=== PATIENT | female | born 1980 | race Caucasian/White ===

== ENCOUNTER 2022-08-05 06:35 | Emergency (ER) | payer MEDICAID ==
[~2022-08-05] VITALS: Ht 165.1 cm; Wt 93.6 kg
[2022-08-05 07:45] LABS: Basophils # (auto) 0.1 10 ^3/uL (0-0.2); Basophils % (auto) 1.1 % (0.0-2.0); Eosinophils # (auto) 0.2 10 ^3/uL (0-0.8); Eosinophils % (auto) 4.6 % (0.0-7.0); Hematocrit 36.2 % (36.0-46.0); Hemoglobin 12.1 g/dL (12.2-16.2); Lymphocytes # (auto) 1.9 10 ^3/uL (0.4-5.4); Lymphocytes % (auto) 35.9 % (10.0-50.0); Mean Corpuscular Hemoglobin 27.5 pg (28.0-32.0); Mean Corpuscular Hgb Conc. 33.3 g/dL (32.0-36.0); Mean Corpuscular Volume 82.5 fL (80.0-100.0); Monocytes # (auto) 0.3 10 ^3/uL (0-1.3); Monocytes % (auto) 4.8 % (0.0-12.0); Neutrophils # (auto) 2.8 10 ^3/uL (1.6-8.6); Neutrophils % (auto) 53.6 % (37.0-80.0); Nucleated Red Blood Cells % 0.1 %; Red Blood Cells 4.39 10^6/uL (4.0-5.20); Red Cell Distribution Width 12.9 % (11.8-14.3); White Blood Cell 5.3 10^3/uL (4.4-10.8)
[2022-08-05 07:59] LABS: Calcium 8.7 mg/dL (8.5-10.1); Potassium 3.9 mmol/L (3.5-5.1)
[2022-08-05 08:04] LABS: Bilirubin, Total 0.5 mg/dL (0.2-1.0); Total Protein 7.1 g/dL (6.4-8.2)
[2022-08-05] MEDS ORDERED: IOHEXOL 300 MG/ML 100ML BOTTLE IJ ONE (09:42)
[2022-08-05] MEDS ORDERED: SODIUM CHLORIDE 0.9% 1,000 ML IV ONE (09:45)
[2022-08-05] MEDS ORDERED: PROMETHAZINE HCL 25 MG/ML 1ML IV PRN (09:45)
[2022-08-05] MEDS ORDERED: MORPHINE SULFATE 4 MG/ML SYR/VIAL IV ONE (09:45)
[2022-08-05 10:54] LABS: Urine WBC None Seen /hpf (0 - 5)
[2022-08-05 10:55] LABS: INR 1.01 (0.9-1.15); Partial Thromboplastin Time 28.5 sec (24.6-33.4)
[2022-08-05 11:52] LABS: Urine Bacteria NONE SEEN /hpf (None Seen); Urine Blood Negative /uL (Negative); Urine Specific Gravity 1.011 (1.001-1.035)
[2022-08-05 13:25] VITALS: BP 109/67
[2022-08-05] MEDS ORDERED: TRAM50TA2 PO (13:32)
[2022-08-05] MEDS ORDERED: DICL50TA2 PO (13:32)
== END 2022-08-05 13:23 | disposition home or self-care (01) ==
LOC: ER 06:35
DX: N83.201 Unspecified ovarian cyst, right side (principal); I27.20 Pulmonary hypertension, unspecified; J44.9 Chronic obstructive pulmonary disease, unspecified; Z90.710 Acquired absence of both cervix and uterus
CPT/HCPCS: 36415; 74177; 76856; 80053; 81001; 83690; 83735; 85025; 85610; 85730; 93005; 96361; 96374; 96375; 99285; J2270; J2550; J7030; Q9967

== ENCOUNTER 2022-12-18 12:00 | Outpatient (CLI) | payer MEDICAID ==
[~2022-12-18] VITALS: Ht 165.1 cm; Wt 86.2 kg
[~2022-12-18 12:00] MED LIST: DICL50TA2 PO; TRAM50TA2 PO
== END 2022-12-18 12:43 | disposition home or self-care (01) ==
LOC: LAB 12:00 → EDSTATUS 12-22 11:19
PROVIDERS: ATTEND Internal Medicine Cardiovascular Disease
DX: Z20.822 Contact with and (suspected) exposure to COVID-19 (principal)

== ENCOUNTER 2023-02-19 06:44 | Day surgery (SDC) | payer OTHER ==
[~2023-02-19] VITALS: Ht 165.1 cm; Wt 86.2 kg
[2023-02-19] VITALS (7 sets, daily range): BP systolic 91–105; BP diastolic 48–69
[~2023-02-19 06:44] MED LIST changes: +ALBU0.084 NEB; +ALBU108A5 IN; +ARIP15TA6 PO; +ASPI1TAB19 PO; +ATOR10TA PO; +BACL10TA PO; +BUPR200T2 PO; +BUSP30TA PO; +CHOL1CAP58 PO; -DICL50TA2 PO; +FENO5TAB PO; +FERR-20 PO; +FLUO-125 PO; +GABA300C PO; +HYDR-4902 PO; +HYDR50TA69 PO; +MELA1CHW PO; +METO25TA93 PO; +MONT10TA23 PO; +OMEP-263 PO; +PANT40TA2 PO; -TRAM50TA2 PO; +TRAZ300T16 PO
[2023-02-19] MEDS ORDERED: ANGIOMAX 250 MG VIAL IV ONE (08:54)
[2023-02-19] MEDS ORDERED: fentaNYL CITRATE 100 MCG/2 ML VL ONE (08:54)
[2023-02-19] MEDS ORDERED: LIDOCAINE 2%HCL (LOCAL ANESTH.) INJ 20ML MDV ONE (08:54)
[2023-02-19] MEDS ORDERED: HEPARIN SODIUM (PORCINE) 5000 UNITS/ML 1ML VIAL ONE (08:54)
[2023-02-19] MEDS ORDERED: MIDAZOLAM HCL 2MG/2ML 2ml VIAL (1mg/ml) ONE (08:54)
[2023-02-19] MEDS ORDERED: IODIXANOL 320MG/ML 100ML BTL IV ONE (08:55)
[2023-02-19] MEDS ORDERED: SODIUM CHL 0.9% 50 ML ONE (08:55)
[2023-02-19] MEDS ORDERED: VERAPAMIL 2.5MG/ML INJ 2ML VIAL IV ONE (08:58)
[2023-02-19] MEDS ORDERED: HYDROcodone-ACET 5/325MG TAB PO ONE (11:15)
[2023-02-19] MEDS ORDERED: ONDANSETRON HCL 4 MG/2 ML VIAL IV ONE (11:15)
== END 2023-02-19 13:10 | disposition home or self-care (01) ==
LOC: CATH 06:44
PROVIDERS: ATTEND Internal Medicine Cardiovascular Disease
DX: R94.39 Abnormal result of other cardiovascular function study (principal); E11.9 Type 2 diabetes mellitus without complications; E78.5 Hyperlipidemia, unspecified; M19.90 Unspecified osteoarthritis, unspecified site; I10 Essential (primary) hypertension; J44.9 Chronic obstructive pulmonary disease, unspecified; E66.9 Obesity, unspecified; Z68.31 Body mass index [BMI] 31.0-31.9, adult; Z79.82 Long term (current) use of aspirin; Z79.1 Long term (current) use of non-steroidal anti-inflammatories (NSAID); Z88.2 Allergy status to sulfonamides; Z82.49 Family history of ischemic heart disease and other diseases of the circulatory system; Z87.891 Personal history of nicotine dependence; Z79.899 Other long term (current) drug therapy; Z79.891 Long term (current) use of opiate analgesic; Z90.710 Acquired absence of both cervix and uterus; Z20.822 Contact with and (suspected) exposure to COVID-19
CPT/HCPCS: 93458; C1725; C1769; C1894; J1644; J2250; J2405; J3010; Q9967; U0003; 99152; 99153

== ENCOUNTER 2023-09-02 12:05 | Inpatient (IN) | payer MEDICAID, OTHER ==
[~2023-09-02] VITALS: Ht 165.1 cm; Wt 93.9 kg
[~2023-09-02 12:05] MED LIST changes: -FERR-20 PO; +FERR325T24 PO; -OMEP-263 PO; +OMEP-448 PO
[2023-09-02 13:36] LABS: Basophils # (auto) 0.1 10 ^3/uL (0-0.2); Basophils % (auto) 1.1 % (0.0-2.0); Eosinophils # (auto) 0.3 10 ^3/uL (0-0.8); Eosinophils % (auto) 4.4 % (0.0-7.0); Hematocrit 37.4 % (36.0-46.0); Hemoglobin 12.4 g/dL (12.2-16.2); Lymphocytes # (auto) 2.4 10 ^3/uL (0.4-5.4); Lymphocytes % (auto) 36.6 % (10.0-50.0); Mean Corpuscular Hemoglobin 28.1 pg (28.0-32.0); Mean Corpuscular Hgb Conc. 33.1 g/dL (32.0-36.0); Mean Corpuscular Volume 84.7 fL (80.0-100.0); Monocytes # (auto) 0.5 10 ^3/uL (0-1.3); Monocytes % (auto) 6.9 % (0.0-12.0); Neutrophils # (auto) 3.4 10 ^3/uL (1.6-8.6); Nucleated Red Blood Cells % 0.1 %; Red Blood Cells 4.42 10^6/uL (4.0-5.20); Red Cell Distribution Width 14.9 % (11.8-14.3); White Blood Cell 6.7 10^3/uL (4.4-10.8)
[2023-09-02 13:41] LABS: Urine Bacteria FEW /hpf (None Seen); Urine Blood Negative /uL (Negative); Urine Clarity HAZY (Clear); Urine Color Yellow (Yellow); Urine Protein, UAD Negative (Negative); Urine Specific Gravity 1.018 (1.001-1.035); Urine WBC 1 /hpf (0 - 5); Urine pH 5.5 (5.0-8.0)
[2023-09-02 13:45] LABS: Amphetamine Screen, Urine Neg (NEGATIVE); Benzodiazephine Screen, Urine Neg (NEGATIVE)
[2023-09-02 13:46] LABS: Barbiturate Scree,Urine Neg (NEGATIVE); Cocaine Screen, Urine Neg (NEGATIVE); Opiate Scree,Urine Neg (NEGATIVE); Phencyclidine Screen, Urine Neg (NEGATIVE)
[2023-09-02 14:03] LABS: Alanine Aminotransferase 47 U/L (7-40); Albumin 4.6 g/dL (3.2-4.8); Alkaline Phosphatase 51 U/L (46-116); Anion Gap 6 (5-15); Aspartate Aminotransferase 29 U/L (13-40); BUN/Creatinine Ratio 13.2 (10.0-20.0); Bilirubin, Total 0.4 mg/dL (0.2-1.0); Blood Urea Nitrogen 12 mg/dL (9-23); Calcium 9.3 mg/dL (8.5-10.1); Carbon Dioxide 27 mmol/L (20-30); Chloride 105 mmol/L (98-107); Glucose 68 mg/dL (74-106); Potassium 4.1 mmol/L (3.5-5.1); Sodium 138 mmol/L (136-145); Total Protein 6.8 g/dL (5.7-8.2)
[2023-09-02] MEDS ORDERED: DEXTROSE (25%) 10 ML SYRG IV ONE (14:30)
[2023-09-02 14:45] LABS: Cannabinoid Screen, Urine Pos (NEGATIVE)
[2023-09-02] MEDS ORDERED: NITROGLYCERIN 0.4 MG SL TAB SL PRN (15:00)
[2023-09-02] MEDS ORDERED: MORPHINE SULFATE INJ 2 MG/ml SYRG IV PRN (15:00)
[2023-09-02] MEDS ORDERED: ACETAMINOPHEN 325 MG TAB PO PRN (15:00)
[2023-09-02] MEDS: HYDROcodone-ACET 5/325MG TAB PO PRN (15:23)
[2023-09-02] MEDS: ONDANSETRON HCL 4 MG/2 ML VIAL IV PRN (15:23)
[2023-09-02] MEDS: MORPHINE SULFATE INJ 2 MG/ml SYRG IV PRN (19:17)
[2023-09-03] MEDS: ONDANSETRON HCL 4 MG/2 ML VIAL IV PRN (02:24)
[2023-09-03] MEDS: MORPHINE SULFATE INJ 2 MG/ml SYRG IV PRN (02:25)
[2023-09-03 03:29] VITALS: TEMP 97.8; O2SAT 97
[2023-09-03 03:37] VITALS: BP 108/59; PULSE 71; RESP 16
[2023-09-03] MEDS: HYDROcodone-ACET 5/325MG TAB PO PRN (03:44)
[2023-09-03] MEDS ORDERED: ENOXAPARIN SOD 40 MG/0.4 ML SYRINGE SC SCH (10:00)
== END 2023-09-03 07:11 | disposition left against medical advice (07) | DRG 204 ==
LOC: ER 12:05 → TELE 15:00
PROVIDERS: ADMIT Internal Medicine; ATTEND Internal Medicine
DX: R55 Syncope and collapse (principal); I27.20 Pulmonary hypertension, unspecified; J96.11 Chronic respiratory failure with hypoxia; F41.9 Anxiety disorder, unspecified; G89.29 Other chronic pain; F31.9 Bipolar disorder, unspecified; I10 Essential (primary) hypertension; E11.9 Type 2 diabetes mellitus without complications; M54.50 Low back pain, unspecified; J44.9 Chronic obstructive pulmonary disease, unspecified; E78.5 Hyperlipidemia, unspecified; Z53.21 Procedure and treatment not carried out due to patient leaving prior to being seen by health care provider; S09.90XA Unspecified injury of head, initial encounter; X58.XXXA Exposure to other specified factors, initial encounter; E66.9 Obesity, unspecified; Z68.34 Body mass index [BMI] 34.0-34.9, adult; Z79.899 Other long term (current) drug therapy; Z88.3 Allergy status to other anti-infective agents; Z90.710 Acquired absence of both cervix and uterus; Z98.84 Bariatric surgery status; Z99.81 Dependence on supplemental oxygen; Z90.49 Acquired absence of other specified parts of digestive tract; Y93.89 Activity, other specified; Y92.89 Other specified places as the place of occurrence of the external cause; Y99.8 Other external cause status
CPT/HCPCS: 36415; 70450; 71045; 72100; 80053; 80307; 81001; 81025; 82962; 83605; 83735; 83880; 84484; 85025; 96374; G0378; J2405

== ENCOUNTER 2024-06-16 09:03 | Inpatient (IN) | payer MEDICAID ==
[~2024-06-16] VITALS: Ht 165.1 cm; Wt 94.0 kg
[2024-06-16 09:39] VITALS: PULSE 73; RESP 20; O2SAT 99
[2024-06-16 09:44] LABS: Basophils # (auto) 0.1 10 ^3/uL (0-0.2); Basophils % (auto) 1.1 % (0.0-2.0); Eosinophils # (auto) 0.2 10 ^3/uL (0-0.8); Eosinophils % (auto) 3.3 % (0.0-7.0); Hematocrit 38.2 % (36.0-46.0); Hemoglobin 12.9 g/dL (12.2-16.2); Lymphocytes # (auto) 2.1 10 ^3/uL (0.4-5.4); Mean Corpuscular Hemoglobin 28.9 pg (28.0-32.0); Mean Corpuscular Hgb Conc. 33.8 g/dL (32.0-36.0); Mean Corpuscular Volume 85.6 fL (80.0-100.0); Monocytes # (auto) 0.4 10 ^3/uL (0-1.3); Monocytes % (auto) 6.1 % (0.0-12.0); Neutrophils # (auto) 3.3 10 ^3/uL (1.6-8.6); Neutrophils % (auto) 54.5 % (37.0-80.0); Nucleated Red Blood Cells % 0.1 %; Red Blood Cells 4.46 10^6/uL (4.0-5.20); Red Cell Distribution Width 14.4 % (11.8-14.3); White Blood Cell 6.1 10^3/uL (4.4-10.8)
[2024-06-16 10:02] LABS: Urine Bacteria None Seen /hpf (None Seen)
[2024-06-16 10:06] LABS: Alanine Aminotransferase 37 U/L (7-40); Albumin 4.5 g/dL (3.2-4.8); Alkaline Phosphatase 75 U/L (46-116); Anion Gap 8 (5-15); Aspartate Aminotransferase 32 U/L (13-40); Calcium 9.5 mg/dL (8.7-10.4); Carbon Dioxide 23 mmol/L (20-30); Chloride 107 mmol/L (98-107); Glucose 92 mg/dL (74-106); Potassium 4.1 mmol/L (3.5-5.1); Sodium 138 mmol/L (136-145)
[2024-06-16 10:07] LABS: Bilirubin, Total 0.3 mg/dL (0.2-1.0); Total Protein 6.8 g/dL (5.7-8.2)
[2024-06-16 10:12] LABS: BUN/Creatinine Ratio 6.3 (10.0-20.0); Blood Urea Nitrogen < 5 mg/dL (9-23)
[2024-06-16 10:17] LABS: Urine Blood Negative /uL (Negative); Urine Clarity Clear (Clear); Urine Color Light-Yellow (Yellow); Urine Protein, UAD Negative (Negative); Urine Specific Gravity 1.023 (1.001-1.035); Urine Urobilinogen Normal (Negative); Urine WBC <1 /hpf (0 - 5)
[2024-06-16] MEDS: SODIUM CHLORIDE 0.9% 1,000 ML IV ONE (11:01)
[2024-06-16] MEDS: ONDANSETRON HCL 4 MG/2 ML VIAL IV ONE ×2 (11:01→12:03)
[2024-06-16] MEDS: ASPirin 81 mg TAB PO ONE (11:01)
[2024-06-16] MEDS: MORPHINE SULFATE 4 MG/ML SYR/VIAL IV ONE ×2 (11:01→12:04)
[2024-06-16 11:10] LABS: INR 0.96 (0.9-1.15); Partial Thromboplastin Time 27.2 SEC (24.5-34.5); Prothrombin Time 10.2 sec (9.3-11.8)
[2024-06-16] MEDS ORDERED: MORPHINE SULFATE INJ 2 MG/ml SYRG IV PRN (12:45)
[2024-06-16] MEDS: SOD CHL 0.45% 1,000 ML IV ONE (14:14)
[2024-06-16] MEDS: GABAPENTIN 100 MG CAP PO SCH (14:21)
[2024-06-16] MEDS: HYDROcodone-ACET 5/325MG TAB PO PRN (14:56)
[2024-06-16] MEDS: NITROGLYCERIN 0.4 MG SL TAB SL PRN (14:56)
[2024-06-16 16:30] VITALS: BP 101/64; TEMP 98.1; O2SAT 95
[2024-06-16] MEDS: ALBUTEROL SULF 2.5 MG/0.5ML(0.5%) NEB SOLN NEB PRN (16:50)
[2024-06-16 17:13] VITALS: BP_SYST 106; BP_SYST 108; BP_SYST 112; BP_DIAS 65; BP_DIAS 68; PULSE 110; RESP 16; TEMP 97.8; O2SAT 98
[2024-06-16 20:00] VITALS: PULSE 88
[2024-06-16] MEDS: ONDANSETRON HCL 4 MG/2 ML VIAL IV PRN (20:23)
[2024-06-16] MEDS: ALPRAZolam 0.25 MG TAB PO PRN (20:41)
[2024-06-16 21:00] VITALS: BP_SYST 93; BP_SYST 97; BP_DIAS 56; BP_DIAS 58; PULSE 79; RESP 18; TEMP 98.3; O2SAT 95
[2024-06-16 22:00] LABS: Amphetamine Screen, Urine Neg (NEGATIVE); Barbiturate Scree,Urine Neg (NEGATIVE); Benzodiazephine Screen, Urine Neg (NEGATIVE); Cannabinoid Screen, Urine Pos (NEGATIVE); Cocaine Screen, Urine Neg (NEGATIVE); Opiate Scree,Urine Pos (NEGATIVE); Phencyclidine Screen, Urine Neg (NEGATIVE)
[2024-06-16] MEDS: SUCRALFATE 1 GM/10 ML ORAL SUSP PO SCH (22:00)
[2024-06-16] MEDS: BUPROPION HCL 200 MG PO SCH (22:00)
[2024-06-16] MEDS: PANTOPRAZOLE 40 MG/10 ML VIAL INJ IV SCH (22:13)
[2024-06-16] MEDS: ATORVASTATIN 20 MG TAB PO SCH (22:13)
[2024-06-16] MEDS: MORPHINE SULFATE INJ 2 MG/ml SYRG IV PRN (22:22)
[2024-06-16] MEDS: traZODone HCL 50 MG TAB PO SCH (23:21)
[2024-06-17] VITALS (11 sets, daily range): BP systolic 93–111; BP diastolic 45–66; PULSE 70–88; RESP 16–77; TEMP 36.8; O2SAT 93–98
[2024-06-17 05:58] LABS: Basophils # (auto) 0.1 10 ^3/uL (0-0.2); Basophils % (auto) 1.1 % (0.0-2.0); Eosinophils # (auto) 0.2 10 ^3/uL (0-0.8); Eosinophils % (auto) 4.9 % (0.0-7.0); Hematocrit 35.5 % (36.0-46.0); Hemoglobin 12.1 g/dL (12.2-16.2); Lymphocytes # (auto) 1.3 10 ^3/uL (0.4-5.4); Lymphocytes % (auto) 29.2 % (10.0-50.0); Mean Corpuscular Hemoglobin 29.4 pg (28.0-32.0); Mean Corpuscular Hgb Conc. 34.1 g/dL (32.0-36.0); Mean Corpuscular Volume 86.2 fL (80.0-100.0); Monocytes # (auto) 0.3 10 ^3/uL (0-1.3); Monocytes % (auto) 6.2 % (0.0-12.0); Neutrophils # (auto) 2.6 10 ^3/uL (1.6-8.6); Neutrophils % (auto) 58.6 % (37.0-80.0); Nucleated Red Blood Cells % 0.5 %; Red Blood Cells 4.12 10^6/uL (4.0-5.20); Red Cell Distribution Width 14.7 % (11.8-14.3); White Blood Cell 4.4 10^3/uL (4.4-10.8)
[2024-06-17 06:20] LABS: Alanine Aminotransferase 205 U/L (7-40); Albumin 4.2 g/dL (3.2-4.8); Alkaline Phosphatase 104 U/L (46-116); Aspartate Aminotransferase 219 U/L (13-40); BUN/Creatinine Ratio 9.5 (10.0-20.0); Bilirubin, Total 0.4 mg/dL (0.2-1.0); Blood Urea Nitrogen 7 mg/dL (9-23); Calcium 9.1 mg/dL (8.7-10.4); Chloride 111 mmol/L (98-107); Cholesterol 139 mg/dL (< 200); Glucose 87 mg/dL (74-106); HDL Cholesterol 51 mg/dL (40-59); LDL Cholesterol 68 mg/dL (< 100); Potassium 4.5 mmol/L (3.5-5.1); Sodium 141 mmol/L (136-145); Total Protein 5.9 g/dL (5.7-8.2); Triglycerides 186 mg/dL (< 150)
[2024-06-17 06:48] LABS: Lipase 34 U/L (12-53)
[2024-06-17 06:49] LABS: Anion Gap 8 (5-15); Carbon Dioxide 22 mmol/L (20-30)
[2024-06-17] MEDS: FLUoxetine HCL 20 MG CAP PO SCH (06:50)
[2024-06-17] MEDS: MONTELUKAST SODIUM 10 MG TAB PO SCH (09:27)
[2024-06-17] MEDS: ASPirin-EC 81 mg tab PO SCH (09:27)
[2024-06-17] MEDS: ARIPIPRAZOLE 15 MG PO SCH (10:00)
[2024-06-17] MEDS ORDERED: METOPROLOL SUCCINATE XL 50 MG TAB PO SCH (14:20)
[2024-06-17] MEDS ORDERED: MUPI2OIN2 (16:26)
== END 2024-06-17 17:55 | disposition home or self-care (01) | DRG 203 ==
LOC: ER 09:06 → TELE 12:45 → TELE-WESTW 17:09
PROVIDERS: ADMIT Hospitalist; ATTEND Hospitalist
DX: M94.0 Chondrocostal junction syndrome [Tietze] (principal); I27.20 Pulmonary hypertension, unspecified; E66.9 Obesity, unspecified; I10 Essential (primary) hypertension; J44.89 Other specified chronic obstructive pulmonary disease; F32.A Depression, unspecified; F41.9 Anxiety disorder, unspecified; M79.7 Fibromyalgia; E78.5 Hyperlipidemia, unspecified; K21.9 Gastro-esophageal reflux disease without esophagitis; K29.70 Gastritis, unspecified, without bleeding; Z88.3 Allergy status to other anti-infective agents; Z82.49 Family history of ischemic heart disease and other diseases of the circulatory system; Z90.49 Acquired absence of other specified parts of digestive tract; Z98.84 Bariatric surgery status; Z90.711 Acquired absence of uterus with remaining cervical stump; Z68.34 Body mass index [BMI] 34.0-34.9, adult; R55 Syncope and collapse
CPT/HCPCS: 36415; 70450; 71045; 80053; 80061; 80307; 81001; 83036; 83690; 83735; 84443; 84484; 85025; 85379; 85610; 85730; 87081; 93005; 93306; 93886; 94640; 96361; 96374; 96375; 96376; G0378; J2405; J2470

== ENCOUNTER 2024-08-23 09:11 | Day surgery (SDC) | payer MEDICAID ==
[2024-08-23] VITALS (8 sets, daily range): BP systolic 87–110; BP diastolic 45–66; PULSE 74–94; RESP 11–17; O2SAT 91–95
[~2024-08-23] VITALS: Ht 157.5 cm; Wt 94.8 kg
[~2024-08-23 09:11] MED LIST changes: +ASCO500T11 PO; +ATOG60TA PO; +CYAN1TAB11 PO; +FURO1TAB33 PO; +IPRIH INH; +MAGN400T40 PO; +MECL-90 PO; -MELA1CHW PO; +MULT-1018 PO; +MULT1CAP25 PO; +ORLI120C21 PO; +POM; +RIME75TA PO; +SUCR1TAB31 PO; +VITA100T3 PO; +ZOFR4T PO
[2024-08-23] MEDS ORDERED: HEPARIN IN NS 1000Units/500mL 1,500 ML ONE (10:27)
[2024-08-23] MEDS ORDERED: IODIXANOL 320MG/ML 100ML BTL IV ONE (10:27)
[2024-08-23] MEDS ORDERED: VERAPAMIL 2.5MG/ML INJ 2ML VIAL IV ONE (11:06)
[2024-08-23] MEDS ORDERED: ANGIOMAX 250 MG VIAL IV ONE (11:06)
[2024-08-23] MEDS ORDERED: HEPARIN SODIUM (PORCINE) 5000 UNITS/ML 1ML VIAL ONE (11:06)
[2024-08-23] MEDS ORDERED: MIDAZOLAM HCL 2MG/2ML 2ml VIAL (1mg/ml) ONE (11:07)
[2024-08-23] MEDS ORDERED: fentaNYL CITRATE 100 MCG/2 ML VL ONE (11:07)
[2024-08-23] MEDS ORDERED: LIDOCAINE 2%HCL (LOCAL ANESTH.) INJ 20ML MDV ONE (11:07)
[2024-08-23] MEDS ORDERED: SODIUM CHL 0.9% 0 ML ONE (11:07)
[2024-08-23] MEDS: HYDROcodone-ACET 5/325MG TAB PO ONE (12:28)
== END 2024-08-23 14:29 | disposition home or self-care (01) ==
LOC: CATH 09:11
PROVIDERS: ATTEND Internal Medicine
DX: I25.10 Atherosclerotic heart disease of native coronary artery without angina pectoris (principal); K21.9 Gastro-esophageal reflux disease without esophagitis; I11.0 Hypertensive heart disease with heart failure; I50.814 Right heart failure due to left heart failure; G89.4 Chronic pain syndrome; J45.909 Unspecified asthma, uncomplicated; Z79.899 Other long term (current) drug therapy; Z90.710 Acquired absence of both cervix and uterus; Z98.890 Other specified postprocedural states; Z88.1 Allergy status to other antibiotic agents; Z88.2 Allergy status to sulfonamides
CPT/HCPCS: 93458; C1769; C1887; C1894; J1644; J2250; J3010; Q9967; 93460; 99152

== ENCOUNTER 2024-10-06 07:53 | Emergency (ER) | payer MEDICAID ==
[~2024-10-06] VITALS: Ht 165.1 cm; Wt 91.0 kg
[2024-10-06 07:54] VITALS: BP 112/76; RESP 20; TEMP 97.7; O2SAT 98
--- NOTE | 2024-10-06 08:01 | ECG ---
[facility] Test Date: 2024-10-06 Test Time: 08:00:54 Pat Name: YEIMY ANAYA Department: ER Room: Gender: F Sort Manager: ANAMARIA : 1980 Requested By: KITTY MOSER Order Number: [id number] Reading MD: Fidencio Anne Measurements Intervals [place] Rate: 90 P: 61 MT: 138 QRS: 43 QRSD: 88 T: 6 QT: 364 QTc: 446 Interpretive Statements Sinus rhythm Low voltage, precordial leads Borderline T abnormalities, anterior leads Electronically Signed On 10-12-2024 13:21:38 PST by Fidencio Anne Please click the below link to view image of tracing.
--- NOTE | 2024-10-06 08:25 | ED.PDOC ---
HPI Comments 43 year old female presents to the ED with chief complaint of chest pain. Patient reports that she has been experiencing right sided chest pain that radiates down her right arm for the past 3 hours with associated headache for the past 9 days. Patient states that she is on O2 at home due to COPD. Patient relays that she had taken Nitroglycerin at 4am and 6am with no relief. Patient denies any N/V, SOB, dizziness, fever, or chills. Chief Complaint: Chest Pain Time Seen by MD: 08:17 Primary Care Provider: MAURO Reviewed Notes: Nurses Notes, Medications, Allergies Allergies: Coded Allergies: Sulfamethoxazole w/Trimethoprim (Verified Allergy, Intermediate, N/V, ITCHING, FEEL HOT, 02/16/23) Sulfa Antibiotics (Verified Allergy, Unknown, HIVES, 08/18/24) Home Meds Reported Medications Atorvastatin Calcium (Lipitor) 10 Mg Tab, 1 TAB PO QAM, #90 TAB 1 Refill 08/18/24 Ipratropium [place] Hfa (Atrovent Hfa) 17 Mcg Aer, 1 PUFF INH QID for COPD, #1 2.9 GRAMS 5 Refills 08/18/24 Baclofen (Baclofen) 10 Mg Tab, 20 MG PO BID PRN for FOR MUSCLE SPASM, MG 08/18/24 Patients Own Medication (PATIENTS OWN MEDICATION) ., 1 QID for IPTROPIUM SOLUTION PTS OWN MED-OBTAIN FROM PT AND SEND TO RX DRUG: FREQ: RX# EXP: DATE DISP: TECH: RP: 08/18/24 Patients Own Medication (PATIENTS OWN MEDICATION) ., 1 PUFF QAM for BRIO INHALER PTS OWN MED-OBTAIN FROM PT AND SEND TO RX DRUG: FREQ: RX# EXP: DATE DISP: TECH: RP: 08/18/24 Cyanocobalamin (Vitamin B12) 1,000 Mcg Tab, 5000 MCG PO DAILY, TAB 08/18/24 Alpha Tocopheryl Acid Succinat (VITAMIN E) 100 Unit Tab, 100 UNIT PO DAILY, TAB 08/18/24 Ascorbic Acid (VITAMIN C TABLET) 500 Mg Tb, 1 TAB PO DAILY, #30 TAB 3 Refills 08/18/24 Magnesium Oxide (MAGNESIUM OXIDE) 400 Mg Tab, 1 TAB PO DAILY, #30 TAB 5 Refills 08/18/24 Atogepant (Qulipta) 60 Mg Tab, 60 MG PO DAILY for MIGRAINE HEADACHES, TAB 08/18/24 Meclizine Hcl (Meclizine Hcl) 25 Mg Tab, 25 MG PO TIDP PRN for DIZZINESS for 30 Days, MG 08/18/24 Furosemide (Lasix) 20 Mg Tb, 1 TAB PO QAM for EDEMA, #90 TAB 1 Refill 08/18/24 Ondansetron Odt 4MG Tab (ZOFRAN PO) 4 Mg Tb, 8 MG PO QIDP for NAUSEA/VOMITING, TAB ODT TAB-DISSOLVE IN MOUTH, THEN SWALLOW 08/18/24 Multiple Vitamin (Multivitamins) Tab, 1 TAB PO DAILY, #90 TAB 3 Refills 08/18/24 Multiple Vitamins W/ Minerals (Hair/Skin/Nails) 1 Cap Cap, 2 GUM PO QAM for SUPPLEMENT, CAP 08/18/24 Sucralfate (CARAFATE) 1 Gm Tab, 1 GM PO QID for GERD, TAB 08/18/24 Orlistat (Xenical) 120 Mg Cap, 120 MG PO TID for WEIGHT LOSS, CAP 08/18/24 Rimegepant Sulfate (Nurtec) 75 Mg Tab, 75 MG PO DAILY for HEADACHE, TAB 08/18/24 Albuterol Sulfate (Albuterol Sulfate) 0.083 % Neb, 1 VIAL NEB QID PRN for SOB or WHEEZING 02/16/23 Albuterol Sulfate (Albuterol Sulfate Hfa) 108 Mcg/Act Aer, 1 PUFF IN QID PRN for SHORTNESS OF BREATH 02/16/23 Gabapentin (Neurontin) 300 Mg Cap, 2 CAP PO TID for FIBROMYALGIA 02/16/23 Aspirin (Aspirin) 81 Mg Tab, 1 TAB PO DAILY for HEART ATTACK PREVENTION 02/16/23 Ferrous Sulfate (Ferrous Sulfate) 325 Mg Tab, 1 TAB PO DAILY for ANEMIA 02/16/23 Omeprazole (Omeprazole Dr) 40 Mg Cap, 1 CAP PO QAM for GERD 02/16/23 Atorvastatin Calcium (Lipitor) 10 Mg Tab, 1 TAB PO QPM for HIGH CHOLESTEROL 02/16/23 Montelukast Sodium (Singulair) 10 Mg Tab, 1 TAB PO DAILY for ASTHMA 02/16/23 Buspirone Hcl (Buspirone Hcl) 30 Mg Tab, 1 TAB PO BID for DEPRESSION 02/16/23 Hydroxyzine Hcl (Hydroxyzine Hcl) 50 Mg Tab, 4 TAB PO BID for ANXIETY 02/16/23 Pantoprazole Sodium Sesquihydr (Protonix) 40 Mg Tab, 1 TAB PO QPM for GERD 02/16/23 Aripiprazole (Abilify) 15 Mg Tab, 1 TAB PO DAILY for OCD 02/16/23 Bupropion Hcl (Wellbutrin Sr) 200 Mg Tab, 1 TAB PO BID for BIPOLAR DISORDER 02/16/23 Trazodone HCl (Trazodone Hydrochloride) 300 Mg Tab, 1 TAB PO HS for INSOMNIA 02/16/23 Fenofibrate (Tricor) 145 Mg Tab, 1 TAB PO QAM for HYPERLIPIDEMIA 02/16/23 Hydrocodone-Acetaminophen (Hydrocodone Bitartrate/AC 5-325 mg) 1 Tab Tab, 1 TAB PO TID PRN for MODERATE PAIN (4-6 PAIN SCALE) 02/16/23 Fluoxetine Hcl (Fluoxetine Hcl) 20 Mg Cap, 4 CAP PO QAM for BPD 02/16/23 Cholecalciferol (Vitamin D3 1.25 mg (81268 Ut)) 1 Cap Cap, 1 CAP PO QAM for VIT D DEFICIENCY 02/16/23 Metoprolol Succinate (Metoprolol Succinate Er) 25 Mg Tab, 2 TAB PO QAM for HYPERTENSION 02/16/23 Information Source: Patient Mode of Arrival: Wheelchair Severity: Moderate Timing: Hours Duration: Since onset Prehospital treatment: NTG Location: Chest (R) Radiation: Arm (R) Quality: Sharp Onset: At Rest Cardiac Risk Factors: Hyperlipidemia, HTN, Diabetes PE Risk Factors: None History of: None Past Medical History PAST MEDICAL HISTORY: Anxiety, Asthma, COPD, DM, High Lipids, HTN Surgical History: Cholecystectomy, Hysterectomy SOCIETY REPORTER History: No Pertinent SOCIETY REPORTER History Family History Family History: Reviewed,noncontributory to illness, Unknown Social History Smoker: Non-Smoker Alcohol: Denies ETOH Use Drugs: Denies Drug Use Lives In: Home Constitutional: denies: chills, diaphoresis, fatigue, fever, malaise, sweats, weakness, others EENTM: denies: blurred vision, double vision, ear bleeding, ear discharge, ear drainage, ear pain, ear ringing, eye pain, eye redness, hearing loss, mouth pain, mouth swelling, nasal discharge, nose bleeding, nose congestion, nose pain, photophobia, tearing, throat pain, throat swelling, voice changes, others Respiratory: denies: cough, hemoptysis, orthopnea, SOB at rest, shortness of breath, SOB with excertion, stridor, wheezing, others Cardiovascular: reports: chest pain; denies: dizzy spells, diaphoresis, Dyspnea on exertion, edema, irregular heart beat, left arm pain, lightheadedness, palpitations, PND, syncope, others Gastrointestinal: denies: abdomen distended, abdominal pain, blood streaked bowels, constipated, diarrhea, dysphagia, difficulty swallowing, hematemesis, melena, nausea, poor appetite, poor fluid intake, rectal bleeding, rectal pain, vomiting, others Genitourinary: denies: abnormal vagina bleeding, burning, dyspareunia, dysuria, flank pain, frequency, hematuria, incontinence, pain, , vagina discharge, urgency, others Neurological: reports: headache; denies: dizziness, fainting, left sided numbness, left sided weakness, numbness, paresthesia, pre-existing deficit, right sided numbness, right sided weakness, seizure, speech problems, tingling, tremors, weakness, others Musculoskeletal: denies: back pain, gout, joint pain, joint swelling, muscle pain, muscle stiffness, neck pain, others Integumetry: denies: bruises, change in color, change in hair/nails, dryness, laceration, lesions, lumps, rash, wounds, others Allergic/Immunocompromised: denies: Difficulty Healing, Frequent Infections, Hives, Itching, others Hematologic/Lymphatic: denies: anemia, blood clots, easy bleeding, easy bruising, swollen glands, others Endocrine: denies: excessive hunger, excessive sweating, excessive thirst, excessive urination, flushing, intolerance to cold, intolerance to heat, unexplained weight gain, unexplained weight loss, others Psychiatric: denies: anxiety, bipolar disorder, depression, hopeless, panic disorder, schizophrenia, sleepless, suicidal, others All Other Systems: Reviewed and Negative Physical Exam General Appearance: Moderate Distress, Normal HEENT: Normal ENT Inspection, PERRL/EOMI Neck: Full Range of Motion, Non-Tender, Normal, Normal Inspection Respiratory: Chest Non-Tender, Lungs Clear, No Accessory Muscle Use, No Respi ratory Distress, Normal Breath Sounds Cardiovascular: No Edema, No JVD, No Murmur, No Gallop, Normal Peripheral Pulses, Regular Rate/Rhythm Breast Exam: Deferred Gastrointestinal: No Organomegaly, Non Tender, No Pulsatile Mass, Normal Bowel Sounds, Soft Genitalia: Deferred Pelvic: Deferred Rectal: Deferred Extremities: No calf tenderness, Normal capillary refill, Normal inspection, Normal range of motion, Non-tender, No pedal edema Musculoskeletal : Apperance: Normal Neurologic: Alert, marking room supervisor II-XII nml as Tested, No Motor Deficits, Normal Affect, Normal Mood, No Sensory Deficits Cerebellar Function: Normal Reflexes: Normal Skin: Dry, Normal Color, Warm Peripheral Pulses: 3+ Radial (R), 3+ Radial (L) Lymphatic: No Adenopathy Was a procedure done? Was a procedure done?: No CP Differential Dx Differential Diagnosis: A-fib, A-Flutter, Angina, Anxiety / Panic Attack, Atrial Dysrhythmia, Electrolyte Disorder X-Ray, Labs, Meds, VS Vital Signs Date Time Temp Pulse Resp B/P (MAP) Pulse Ox O2 Delivery O2 Flow Rate FiO2 10/06/24 08:53 75 10/06/24 07:54 97.7 84 20 112/76 (88) 98 97.7 10/06/24 07:54 97.7 84 20 112/76 (88) 98 Lab Test 10/06/24 09:05 10/06/24 08:08 Range/Units Troponin I High Sensitivity < 3 L < 3 L </=34 ng/L White Blood Count 5.7 4.4-10.8 10^3/uL Red Blood Count 4.38 4.0-5.20 10^6/uL Hemoglobin 13.0 12.2-16.2 g/dL Hematocrit 38.8 36.0-46.0 % Mean Corpuscular Volume 88.5 80.0-100.0 fL Mean Corpuscular Hemoglobin 29.7 28.0-32.0 pg Mean Corpuscular Hemoglobin Concent 33.5 32.0-36.0 g/dL Red Cell Distribution Width 14.2 11.8-14.3 % Platelet Count 188 140-450 10^3/uL Mean Platelet Volume 8.4 6.9-10.8 fL Neutrophils (%) (Auto) 59.6 37.0-80.0 % Lymphocytes (%) (Auto) 29.9 10.0-50.0 % Monocytes (%) (Auto) 6.6 0.0-12.0 % Eosinophils (%) (Auto) 2.5 0.0-7.0 % Basophils (%) (Auto) 1.4 0.0-2.0 % Neutrophils # (Auto) 3.4 1.6-8.6 10 ^3/uL Lymphocytes # (Auto) 1.7 0.4-5.4 10 ^3/uL Monocytes # (Auto) 0.4 0-1.3 10 ^3/uL Eosinophils # (Auto) 0.1 0-0.8 10 ^3/uL Basophils # (Auto) 0.1 0-0.2 10 ^3/uL Nucleated Red Blood Cells 0.2 % Sodium Level 140 136-145 mmol/L Potassium Level 4.2 3.5-5.1 mmol/L Chloride Level 107 98-107 mmol/L Carbon Dioxide Level 24 20-31 mmol/L Anion Gap 9 5-15 Blood Urea Nitrogen 9 9-23 mg/dL Creatinine 0.76 0.550-1.02 mg/dL Glomerular Filtration Rate Calc 99 >90 mL/min BUN/Creatinine Ratio 11.8 10.0-20.0 Serum Glucose 79 74-106 mg/dL Calcium Level 9.7 8.7-10.4 mg/dL Total Bilirubin 0.4 0.2-1.0 mg/dL Aspartate Amino Transferase (AST) 25 13-40 U/L Alanine Aminotransferase (ALT) 34 7-40 U/L Alkaline Phosphatase 69 46-116 U/L Total Protein 7.1 5.7-8.2 g/dL Albumin 4.6 3.2-4.8 g/dL Patient alert oriented. Complaining of chest pain. Vitals stable. Answering questions. Heart rate within normal limits. Saturation pristine on room air. WBC within normal limits. Hemoglobin within normal limits. She is pain-free. Was given aspirin. She states that she is feeling much better. Explained to the patient. She will need outpatient workup. No leg swelling. Denies shortness a breath. Was told to follow up with her primary care physician. Was told to come back if there is any problem. Time of 1ST Reevaluation: 09:17 Reevaluation 1ST: Improved Time of 2ND Reevaluation: 12:53 Reevaluation 2ND: Improved Patient Education/Counseling: Diagnosis, Treatment Family Education/Counseling: No Family Present Departure 1 Departure Time of Disposition: 12:57 Impression: Primary Impression: Musculoskeletal chest pain Disposition: 01 HOME / SELF CARE / HOMELESS Condition: Good Discharged With: Self Critical Care Note Critical Care Time?: No Stability Stability form required: No Heart Score Heart Score: Heart Score Response (Comments) Value History Moderate Suspicious 1 EKG Normal 0 Age <45 0 Risk Factors >3 or Hx ASHD 2 Troponin Normal limit 0 Total 3 I personally scribed for KITTY MOSER MD ([email or web address]) on 10/06/24 at 08:25. Electronically submitted by Teja Cintron ([email or web address]). KITTY MOSER MD Oct 06, 2024 08:25
[2024-10-06 08:43] LABS: Basophils # (auto) 0.1 10 ^3/uL (0-0.2); Basophils % (auto) 1.4 % (0.0-2.0); Eosinophils # (auto) 0.1 10 ^3/uL (0-0.8); Eosinophils % (auto) 2.5 % (0.0-7.0); Hematocrit 38.8 % (36.0-46.0); Lymphocytes # (auto) 1.7 10 ^3/uL (0.4-5.4); Lymphocytes % (auto) 29.9 % (10.0-50.0); Mean Corpuscular Hemoglobin 29.7 pg (28.0-32.0); Mean Corpuscular Hgb Conc. 33.5 g/dL (32.0-36.0); Mean Corpuscular Volume 88.5 fL (80.0-100.0); Monocytes # (auto) 0.4 10 ^3/uL (0-1.3); Monocytes % (auto) 6.6 % (0.0-12.0); Neutrophils # (auto) 3.4 10 ^3/uL (1.6-8.6); Neutrophils % (auto) 59.6 % (37.0-80.0); Nucleated Red Blood Cells % 0.2 %; Platelet Count (auto) 188 10^3/uL (140-450); Red Blood Cells 4.38 10^6/uL (4.0-5.20); Red Cell Distribution Width 14.2 % (11.8-14.3); White Blood Cell 5.7 10^3/uL (4.4-10.8)
[2024-10-06 08:53] VITALS: PULSE 75
[2024-10-06 09:00] LABS: Alanine Aminotransferase 34 U/L (7-40); Albumin 4.6 g/dL (3.2-4.8); Alkaline Phosphatase 69 U/L (46-116); Anion Gap 9 (5-15); Aspartate Aminotransferase 25 U/L (13-40); BUN/Creatinine Ratio 11.8 (10.0-20.0); Bilirubin, Total 0.4 mg/dL (0.2-1.0); Blood Urea Nitrogen 9 mg/dL (9-23); Calcium 9.7 mg/dL (8.7-10.4); Carbon Dioxide 24 mmol/L (20-31); Chloride 107 mmol/L (98-107); Glucose 79 mg/dL (74-106); Potassium 4.2 mmol/L (3.5-5.1); Sodium 140 mmol/L (136-145); Total Protein 7.1 g/dL (5.7-8.2)
--- NOTE | 2024-10-06 19:00 | ECG ---
[facility] Test Date: 2024-10-06 Test Time: 08:53:52 Pat Name: YEIMY ANAYA Department: ED Room: Gender: F Carton Folder: LAURA : 1980 Requested By: KITTY MOSER Order Number: [id number] Reading MD: Fidencio Anne Measurements Intervals [place] Rate: 75 P: 72 [place]: 135 QRS: 62 QRSD: 89 T: 35 QT: 393 QTc: 439 Interpretive Statements Sinus rhythm Low voltage, precordial leads Borderline T abnormalities, anterior leads Electronically Signed On 10-12-2024 13:22:12 PST by Fidencio Anne Please click the below link to view image of tracing.
== END 2024-10-06 13:00 | disposition home or self-care (01) ==
LOC: ER 07:53
DX: R07.89 Other chest pain (principal); E11.9 Type 2 diabetes mellitus without complications; I10 Essential (primary) hypertension; F41.9 Anxiety disorder, unspecified; J44.89 Other specified chronic obstructive pulmonary disease; Z79.899 Other long term (current) drug therapy; Z88.1 Allergy status to other antibiotic agents; Z88.2 Allergy status to sulfonamides; Z90.49 Acquired absence of other specified parts of digestive tract; Z90.710 Acquired absence of both cervix and uterus
CPT/HCPCS: 36415; 80053; 84484; 85025; 93005

== ENCOUNTER 2024-12-23 13:32 | Inpatient (IN) | payer MEDICAID ==
[~2024-12-23] VITALS: Ht 165.1 cm; Wt 75.0 kg
--- NOTE | 2024-12-23 13:59 | ED.PDOC ---
HPI Comments 44 year old female presents to the ED with chief complaint of chest pain. Patient reports that she has been experiencing right sided constant, sharp, and heavy chest pain with radiation to the right shoulder since earlier today. Patient relays that she also suffered syncopal episode, however, she has had multiple in the past 8 months. Patient had a recent NC back in 07/2024 and is currently on many medications. Patient denies any N/V, SOB, cough, headache, dizziness, fever, chills, or head injury. Chief Complaint: Chest Pain Time Seen by MD: 13:55 Primary Care Provider: MAURO Reviewed Notes: Nurses Notes, Medications, Allergies Allergies: Coded Allergies: Sulfamethoxazole w/Trimethoprim (Verified Allergy, Intermediate, N/V, ITCHING, FEEL HOT, 02/16/23) Sulfa Antibiotics (Verified Allergy, Unknown, HIVES, 08/18/24) Home Meds Reported Medications Atorvastatin Calcium (Lipitor) 10 Mg Tab, 1 TAB PO QAM, #90 TAB 1 Refill 08/18/24 Ipratropium [place] Hfa (Atrovent Hfa) 17 Mcg Aer, 1 PUFF INH QID for COPD, #12.9 GRAMS 5 Refills 08/18/24 Baclofen (Baclofen) 10 Mg Tab, 20 MG PO BID PRN for FOR MUSCLE SPASM, MG 08/18/24 Patients Own Medication (PATIENTS OWN MEDICATION) ., 1 QID for IPTROPIUM SOLUTION PTS OWN MED-OBTAIN FROM PT AND SEND TO RX DRUG: FREQ: RX# EXP: DATE DISP: TECH: RP: 08/18/24 Patients Own Medication (PATIENTS OWN MEDICATION) ., 1 PUFF QAM for BRIO INHALER PTS OWN MED-OBTAIN FROM PT AND SEND TO RX DRUG: FREQ: RX# EXP: DATE DISP: TECH: RP: 08/18/24 Cyanocobalamin (Vitamin B12) 1,000 Mcg Tab, 5000 MCG PO DAILY, TAB 08/18/24 Alpha Tocopheryl Acid Succinat (VITAMIN E) 100 Unit Tab, 100 UNIT PO DAILY, TAB 08/18/24 Ascorbic Acid (VITAMIN C TABLET) 500 Mg Tb, 1 TAB PO DAILY, #30 TAB 3 Refills 08/18/24 Magnesium Oxide (MAGNESIUM OXIDE) 400 Mg Tab, 1 TAB PO DAILY, #30 TAB 5 Refills 08/18/24 Atogepant (Qulipta) 60 Mg Tab, 60 MG PO DAILY for MIGRAINE HEADACHES, TAB 08/18/24 Meclizine Hcl (Meclizine Hcl) 25 Mg Tab, 25 MG PO TIDP PRN for DIZZINESS for 30 Days, MG 08/18/24 Furosemide (Lasix) 20 Mg Tb, 1 TAB PO QAM for EDEMA, #90 TAB 1 Refill 08/18/24 Ondansetron Odt 4MG Tab (ZOFRAN PO) 4 Mg Tb, 8 MG PO QIDP for NAUSEA/VOMITING, TAB ODT TAB-DISSOLVE IN MOUTH, THEN SWALLOW 08/18/24 Multiple Vitamin (Multivitamins) Tab, 1 TAB PO DAILY, #90 TAB 3 Refills 08/18/24 Multiple Vitamins W/ Minerals (Hair/Skin/Nails) 1 Cap Cap, 2 GUM PO QAM for SUPPLEMENT, CAP 08/18/24 Sucralfate (CARAFATE) 1 Gm Tab, 1 GM PO QID for GERD, TAB 08/18/24 Orlistat (Xenical) 120 Mg Cap, 120 MG PO TID for WEIGHT LOSS, CAP 08/18/24 Rimegepant Sulfate (Nurtec) 75 Mg Tab, 75 MG PO DAILY for HEADACHE, TAB 08/18/24 Albuterol Sulfate (Albuterol Sulfate) 0.083 % Neb, 1 VIAL NEB QID PRN for SOB or WHEEZING 02/16/23 Albuterol Sulfate (Albuterol Sulfate Hfa) 108 Mcg/Act Aer, 1 PUFF IN QID PRN for SHORTNESS OF BREATH 02/16/23 Gabapentin (Neurontin) 300 Mg Cap, 2 CAP PO TID for FIBROMYALGIA 02/16/23 Aspirin (Aspirin) 81 Mg Tab, 1 TAB PO DAILY for HEART ATTACK PREVENTION 02/16/23 Ferrous Sulfate (Ferrous Sulfate) 325 Mg Tab, 1 TAB PO DAILY for ANEMIA 02/16/23 Omeprazole (Omeprazole Dr) 40 Mg Cap, 1 CAP PO QAM for GERD 02/16/23 Atorvastatin Calcium (Lipitor) 10 Mg Tab, 1 TAB PO QPM for HIGH CHOLESTEROL 02/16/23 Montelukast Sodium (Singulair) 10 Mg Tab, 1 TAB PO DAILY for ASTHMA 02/16/23 Buspirone Hcl (Buspirone Hcl) 30 Mg Tab, 1 TAB PO BID for DEPRESSION 02/16/23 Hydroxyzine Hcl (Hydroxyzine Hcl) 50 Mg Tab, 4 TAB PO BID for ANXIETY 02/16/23 Pantoprazole Sodium Sesquihydr (Protonix) 40 Mg Tab, 1 TAB PO QPM for GERD 02/16/23 Aripiprazole (Abilify) 15 Mg Tab, 1 TAB PO DAILY for OCD 02/16/23 Bupropion Hcl (Wellbutrin Sr) 200 Mg Tab, 1 TAB PO BID for BIPOLAR DISORDER 02/16/23 Trazodone HCl (Trazodone Hydrochloride) 300 Mg Tab, 1 TAB PO HS for INSOMNIA 02/16/23 Fenofibrate (Tricor) 145 Mg Tab, 1 TAB PO QAM for HYPERLIPIDEMIA 02/16/23 Hydrocodone-Acetaminophen (Hydrocodone Bitartrate/AC 5-325 mg) 1 Tab Tab, 1 TAB PO TID PRN for MODERATE PAIN (4-6 PAIN SCALE) 02/16/23 Fluoxetine Hcl (Fluoxetine Hcl) 20 Mg Cap, 4 CAP PO QAM for BPD 02/16/23 Cholecalciferol (Vitamin D3 1.25 mg (89211 Ut)) 1 Cap Cap, 1 CAP PO QAM for VIT D DEFICIENCY 02/16/23 Metoprolol Succinate (Metoprolol Succinate Er) 25 Mg Tab, 2 TAB PO QAM for HYPERTENSION 02/16/23 Information Source: Patient Mode of Arrival: Ambulatory Severity: Moderate Timing: Hours Duration: Since onset Prehospital treatment: None Location: Chest (R) Radiation: Shoulder (R) Quality: Sharp, Heavy Onset: At Rest Cardiac Risk Factors: Hyperlipidemia, HTN PE Risk Factors: None History of: Similar pain in past, NC Past Medical History PAST MEDICAL HISTORY: Anxiety, Asthma, COPD, DM, High Lipids, HTN, NC Surgical History: Cholecystectomy, Hysterectomy Surgical History (Other): Gastric bypass, Lt ankle surgery [employer]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 Family History Family History: Reviewed,noncontributory to illness, Unknown Social History Smoker: Non-Smoker Alcohol: Denies ETOH Use Drugs: Marijuana Lives In: Home Constitutional: denies: chills, diaphoresis, fatigue, fever, malaise, sweats, weakness, others EENTM: denies: blurred vision, double vision, ear bleeding, ear discharge, ear drainage, ear pain, ear ringing, eye pain, eye redness, hearing loss, mouth pain, mouth swelling, nasal discharge, nose bleeding, nose congestion, nose pain, photophobia, tearing, throat pain, throat swelling, voice changes, others Respiratory: denies: cough, hemoptysis, orthopnea, SOB at rest, shortness of breath, SOB with excertion, stridor, wheezing, others Cardiovascular: reports: chest pain, syncope; denies: dizzy spells, diaphoresis, Dyspnea on exertion, edema, irregular heart beat, left arm pain, lightheadedness, palpitations, PND, others Gastrointestinal: denies: abdomen distended, abdominal pain, blood streaked bowels, constipated, diarrhea, dysphagia, difficulty swallowing, hematemesis, melena, nausea, poor appetite, poor fluid intake, rectal bleeding, rectal pain, vomiting, others Genitourinary: denies: abnormal vagina bleeding, burning, dyspareunia, dysuria, flank pain, frequency, hematuria, incontinence, pain, , vagina discharge, urgency, others Neurological: denies: dizziness, fainting, headache, left sided numbness, left sided weakness, numbness, paresthesia, pre-existing deficit, right sided numbness, right sided weakness, seizure, speech problems, tingling, tremors, weakness, others Musculoskeletal: denies: back pain, gout, joint pain, joint swelling, muscle pain, muscle stiffness, neck pain, others Integumetry: denies: bruises, change in color, change in hair/nails, dryness, laceration, lesions, lumps, rash, wounds, others Allergic/Immunocompromised: denies: Difficulty Healing, Frequent Infections, Hives, Itching, others Hematologic/Lymphatic: denies: anemia, blood clots, easy bleeding, easy bruising, swollen glands, others Endocrine: denies: excessive hunger, excessive sweating, excessive thirst, excessive urination, flushing, intolerance to cold, intolerance to heat, unexplained weight gain, unexplained weight loss, others Psychiatric: denies: anxiety, bipolar disorder, depression, hopeless, panic disorder, schizophrenia, sleepless, suicidal, others All Other Systems: Reviewed and Negative Physical Exam General Appearance: Moderate Distress, Obese HEENT: Normal ENT Inspection, PERRL/EOMI Neck: Full Range of Motion, Non-Tender, Normal, Normal Inspection Respiratory: Crackles, Decreased Breath Sounds, Expiration, Inspiration, Lungs Clear, No Accessory Muscle Use, No Respiratory Distress, Other (Pain to chest wall on the right side and sternum radiating to the l right shoulder and arm no cold sweats no shortness of breath) Cardiovascular: No Edema, No JVD, No Murmur, No Gallop, Normal Peripheral Pulses, Regular Rate/Rhythm Breast Exam: Deferred Gastrointestinal: No Organomegaly, Non Tender, No Pulsatile Mass, Normal Bowel Sounds, Soft, Other (Obesity) Genitalia: Deferred Pelvic: Deferred Rectal: Deferred Extremities: No calf tenderness, Normal capillary refill, Normal inspection, Normal range of motion, Non-tender, No pedal edema Musculoskeletal : Apperance: Normal Neurologic: Alert, car dropper II-XII nml as Tested, No Motor Deficits, Normal Affect, Normal Mood, No Sensory Deficits Cerebellar Function: Normal Reflexes: Normal Skin: Dry, Normal Color, Warm Peripheral Pulses: 1+ carotid (R), 1+ carotid (L) Lymphatic: No Adenopathy EKG EKG : Pulse Rate (adult): 100 [place]: Normal Cardiac Rhythm: ST, PAC's ST: Ischemia, Nonsp Was a procedure done? Was a procedure done?: No CP Differential Dx Differential Diagnosis: Angina, Anxiety / Panic Attack, Electrolyte Disorder, Heart Failure, NC, Renal Failure Differential Diagnosis: HTN Essential Differential Diagnosis: Angina, Chest Wall Pain, Costochondritis, Esophageal reflux/spasm, Myocardial Infarction, Pneumonia X-Ray, Labs, Meds, VS Vital Signs Date Time Temp Pulse Resp B/P (MAP) Pulse Ox O2 Delivery O2 Flow Rate FiO2 12/23/24 14:59 99.2 88 20 107/73 (84) 95 99.2 12/23/24 14:59 88 12/23/24 14:52 87 20 127/70 12/23/24 14:51 100 12/23/24 14:24 87 12/23/24 14:22 88 20 143/74 12/23/24 13:35 98.2 100 24 103/86 (92) 97 Lab Test 12/23/24 14:32 12/23/24 13:45 12/23/24 13:43 Range/Units Troponin I High Sensitivity < 3 L < 3 L </=34 ng/L White Blood Count 7.0 4.4-10.8 10^3/uL Red Blood Count 3.91 L 4.0-5.20 10^6/uL Hemoglobin 11.6 L 12.2-16.2 g/dL Hematocrit 34.7 L 36.0-46.0 % Mean Corpuscular Volume 88.8 80.0-100.0 fL Mean Corpuscular Hemoglobin 29.6 28.0-32.0 pg Mean Corpuscular Hemoglobin Concent 33.4 32.0-36.0 g/dL Red Cell Distribution Width 14.2 11.8-14.3 % Platelet Count 182 140-450 10^3/uL Mean Platelet Volume 8.5 6.9-10.8 fL Neutrophils (%) (Auto) 65.0 37.0-80.0 % Lymphocytes (%) (Auto) 27.1 10.0-50.0 % Monocytes (%) (Auto) 6.0 0.0-12.0 % Eosinophils (%) (Auto) 1.2 0.0-7.0 % Basophils (%) (Auto) 0.7 0.0-2.0 % Neutrophils # (Auto) 4.6 1.6-8.6 10 ^3/uL Lymphocytes # (Auto) 1.9 0.4-5.4 10 ^3/uL Monocytes # (Auto) 0.4 0-1.3 10 ^3/uL Eosinophils # (Auto) 0.1 0-0.8 10 ^3/uL Basophils # (Auto) 0 0-0.2 10 ^3/uL Nucleated Red Blood Cells 0.0 % Prothrombin Time 10.7 9.3-11.8 sec Prothrombin Time INR 1.01 0.9-1.15 Activated Partial Thromboplast Time 26.1 24.5-34.5 SEC D-Dimer, Quantitative 0.36 0.0-0.49 mg/L FEU Sodium Level 143 136-145 mmol/L Potassium Level 4.3 3.5-5.1 mmol/L Chloride Level 110 H 98-107 mmol/L Carbon Dioxide Level 23 20-31 mmol/L Anion Gap 10 5-15 Blood Urea Nitrogen 7 L 9-23 mg/dL Creatinine 0.88 0.550-1.02 mg/dL Glomerular Filtration Rate Calc 83 >90 mL/min BUN/Creatinine Ratio 8.0 L 10.0-20.0 Serum Glucose 114 H 74-106 mg/dL Calcium Level 9.3 8.7-10.4 mg/dL Total Bilirubin 0.3 0.2-1.0 mg/dL Aspartate Amino Transferase (AST) 23 13-40 U/L Alanine Aminotransferase (ALT) 29 7-40 U/L Alkaline Phosphatase 64 46-116 U/L Total Protein 6.0 5.7-8.2 g/dL Albumin 4.3 3.2-4.8 g/dL POC Glucose 118 H 70-106 mg/dl Current Medications Medications (Trade) Dose Ordered Sig/Arleen Route Start Time Stop Time Status Last Admin Morphine Sulfate 3 mg ONCE ONCE IV 12/23/24 14:00 12/23/24 14:01 DC 12/23/24 14:22 Ondansetron HCl (Zofran) 4 mg ONCE ONCE IV 12/23/24 14:00 12/23/24 14:01 DC 12/23/24 14:19 Al Hydrox/Mg Hydrox/Simethicone (Maalox Plus) 30 ml ONCE ONCE PO 12/23/24 15:15 12/23/24 15:16 DC 12/23/24 15:15 Belladonna Alkaloids/ Phenobarbital ( Elixir) 5 ml ONCE ONCE PO 12/23/24 16:00 12/23/24 16:01 DC 12/23/24 16:05 Lidocaine HCl (Xylocaine 2% Viscous) 10 ml ONCE ONCE PO 12/23/24 16:00 12/23/24 16:01 DC 12/23/24 16:05 Ketorolac Tromethamine (Toradol Injection) 30 mg ONCE ONCE IV 12/23/24 17:15 12/23/24 17:17 DC 12/23/24 17:21 Ondansetron HCl (Zofran) 4 mg ONCE ONCE IV 12/23/24 17:15 12/23/24 17:17 DC 12/23/24 17:21 X-Ray, Labs, Meds, VS Comment Course in the emergency department eventful patient came in complaining of right-sided chest pain and sternal pain not during expiration or inspiration Chest x-ray is normal EKG shows sinus tachycardia at 100 with PAC and nonspecific ischemic changes CBC 7000 with 69% neutrophils H&H 11.6 and 34.7 INR 1.01 D-dimer 0.36 Urine pending Troponin less than three twice Glucose 118 Patient has been observed and medicated Patient still in pain and nausea and vomiting Patient will be admitted for further care Time of 1ST Reevaluation: 14:55 Reevaluation 1ST: Unchanged Patient Education/Counseling: Diagnosis, Treatment Family Education/Counseling: No Family Present Departure 1 Departure Time of Disposition: 17:13 Impression: Primary Impression: Chest pain Qualified Codes: R07.81 - Pleurodynia Additional Impressions: Nausea & vomiting Qualified Codes: R11.2 - Nausea with vomiting, unspecified History of COPD Bipolar disorder Qualified Codes: F31.32 - Bipolar disorder, current episode depressed, moderate History of gastric bypass Ruled Out: Pneumonia, Pulmonary embolism, Pneumothorax Disposition: ADMITTED INPATIENT Admit to: Tele Condition: Fair Critical Care Note Critical Care Time?: No Stability Stability form required: Yes Unstable for transfer: Telemetry monitoring (Telemetry monitoring required), Requires medication (Requires Med for stabilization) Heart Score Heart Score: Heart Score Response (Comments) Value History Highly Suspicious 2 EKG Repolarization Disturb 1 Age 45-64 1 Risk Factors >3 or Hx ASHD 2 Troponin Normal limit 0 Total 6 I personally scribed for DOUG JUÁREZ MD ([email or web address]) on 12/23/24 at 13:59. Electronically submitted by Teja Cintron ([email or web address]). DOUG JUÁREZ MD Dec 23, 2024 13:59
[2024-12-23] MEDS: ONDANSETRON HCL 4 MG/2 ML VIAL IV ONE ×3 (14:19→22:36)
[2024-12-23] MEDS: MORPHINE SULFATE 4 MG/ML SYR/VIAL IV ONE (14:22)
--- NOTE | 2024-12-23 14:25 | DVH ---
CLINICAL INFORMATION: 44 years old, Female; chest pain. TECHNIQUE: Single AP portable chest radiograph was obtained. COMPARISON: XY CHEST XRAY 1 VIEW on DOS: 06/16/24, XY CHEST XRAY 1 VIEW on DOS: 09/02/23 FINDINGS: Lungs: Low lung volumes. Mild atelectasis in the lung bases. No focal consolidation. No pneumothorax or pleural effusion. Cardiac: Heart size is within normal limits. Pulmonary vasculature: Unremarkable. Mediastinum/jacklyn: Unremarkable. Bones: No acute osseous abnormality identified. Other: No other significant findings. IMPRESSION: No evidence of acute disease in the chest.
[2024-12-23 14:32] LABS: Basophils # (auto) 0 10 ^3/uL (0-0.2); Basophils % (auto) 0.7 % (0.0-2.0); Eosinophils # (auto) 0.1 10 ^3/uL (0-0.8); Eosinophils % (auto) 1.2 % (0.0-7.0); Hematocrit 34.7 % (36.0-46.0); Hemoglobin 11.6 g/dL (12.2-16.2); Lymphocytes # (auto) 1.9 10 ^3/uL (0.4-5.4); Lymphocytes % (auto) 27.1 % (10.0-50.0); Mean Corpuscular Hemoglobin 29.6 pg (28.0-32.0); Mean Corpuscular Hgb Conc. 33.4 g/dL (32.0-36.0); Mean Corpuscular Volume 88.8 fL (80.0-100.0); Monocytes # (auto) 0.4 10 ^3/uL (0-1.3); Neutrophils # (auto) 4.6 10 ^3/uL (1.6-8.6); Platelet Count (auto) 182 10^3/uL (140-450); Red Blood Cells 3.91 10^6/uL (4.0-5.20); Red Cell Distribution Width 14.2 % (11.8-14.3)
[2024-12-23 14:40] LABS: Alanine Aminotransferase 29 U/L (7-40); Albumin 4.3 g/dL (3.2-4.8); Alkaline Phosphatase 64 U/L (46-116); Anion Gap 10 (5-15); Aspartate Aminotransferase 23 U/L (13-40); Bilirubin, Total 0.3 mg/dL (0.2-1.0); Calcium 9.3 mg/dL (8.7-10.4); Carbon Dioxide 23 mmol/L (20-31); Potassium 4.3 mmol/L (3.5-5.1); Sodium 143 mmol/L (136-145)
[2024-12-23 14:50] LABS: INR 1.01 (0.9-1.15); Partial Thromboplastin Time 26.1 SEC (24.5-34.5); Prothrombin Time 10.7 sec (9.3-11.8)
[2024-12-23 15:00] LABS: Blood Urea Nitrogen 7 mg/dL (9-23); Chloride 110 mmol/L (98-107); Glucose 114 mg/dL (74-106)
[2024-12-23] MEDS: MAALOX PLUS or MAALOX 30 ML PO ONE (15:15)
[2024-12-23] MEDS: DONNATAL 5ml ORAL Elix (BELLADONNA ALK-PHENOBARB) PO ONE (16:05)
[2024-12-23] MEDS: LIDOCAINE VISCOUS 2% 15ML UD PO ONE (16:05)
[2024-12-23] MEDS: KETOROLAC TROMETH 30 MG/ML 1ML VIAL IV ONE (17:21)
[2024-12-23 21:15] LABS: Urine Bacteria FEW /hpf (None Seen); Urine Blood Negative /uL (Negative); Urine Clarity Clear (Clear); Urine Color Yellow (Yellow); Urine Mucus FEW (None Seen); Urine Protein, UAD Negative (Negative); Urine Specific Gravity 1.025 (1.001-1.035); Urine Squamous Epithelial Cell FEW /hpf (<5); Urine Urobilinogen 4 mg/dL (Negative); Urine WBC 1 /HPF (0-5)
--- NOTE | 2024-12-23 21:17 | DVH ---
CT BRAIN WITHOUT CONTRAST HISTORY: syncope TECHNIQUE: Axial scans were obtained from the skull base through the vertex without contrast. [place] l and coronal reformats were generated. One or more of the following radiation dose reduction techniq ues were used for this examination: automated exposure control, adjustment of the mA and/or kV accord ing to patient size, use of iterative reconstruction technique. COMPARISON: CT HEAD WITHOUT CONTRAST on DOS: 06/17/24 FINDINGS: Streak artifact somewhat limits evaluation of the skull base and posterior fossa. As visualized, no d efinite acute intracranial hemorrhage or or evidence of large vessel territorial infarction is identi fied at this time. No midline shift. The basilar cisterns are patent. The visualized paranasal sinuses and mastoid air cells are clear. No grossly displaced calvarial frac ture is identified. IMPRESSION: No acute intracranial findings as visualized.
[2024-12-23 22:02] LABS: Barbiturate Scree,Urine Neg (NEGATIVE)
[2024-12-23 22:03] LABS: Cannabinoid Screen, Urine Neg (NEGATIVE)
[2024-12-23 22:04] LABS: Amphetamine Screen, Urine Neg (NEGATIVE); Benzodiazephine Screen, Urine Neg (NEGATIVE); Cocaine Screen, Urine Neg (NEGATIVE); Opiate Scree,Urine Pos (NEGATIVE); Phencyclidine Screen, Urine Neg (NEGATIVE)
[2024-12-23 22:28] VITALS: PULSE 82; RESP 18; O2SAT 95
[2024-12-23] MEDS ORDERED: DEXTROSE (50%) 50ML SYRG IV PRN (23:45)
[2024-12-23] MEDS ORDERED: NITROGLYCERIN 0.4 MG SL TAB SL PRN (23:45)
[2024-12-24] VITALS (11 sets, daily range): BP systolic 102–125; BP diastolic 46–65; PULSE 72–100; RESP 18–22; TEMP 97.6–98.1; O2SAT 90–99
--- NOTE | 2024-12-24 00:11 | DVHHP2 ---
Admitting Diagnosis: Chest pain, Syncope, dizziness History of Present Illness History Source: Patient Exam Limitations: No limitations HPI Mrs. Gisselle Bennett is a 44 year old female with a history of Anxiety, asthma, COPD, DM, HLD, HTN, IA, bipolar disorder who presents with chief complaint of chest pain. Patient reports that she has been experiencing right sided constant, sharp, and heavy chest pain with radiation to the right shoulder since earlier yesterday. Patient relays that she also suffered syncopal episode with dizziness, however, she has had multiple in the past 6 months. Patient reports she was seen at [facility] for her syncopal episodes and has a cardiology appointment in a couple weeks. Patient denies SI, headaches, palpitations, dyspnea, blurry vision, nausea, vomiting, fevers, chills, dysuria. Patient also endorses anxiety. Patient admitted for further evaluation. Home Meds Reported Medications Atorvastatin Calcium (Lipitor) 10 Mg Tab, 1 TAB PO QAM, #90 TAB 1 Refill 08/18/24 Ipratropium Norco Hfa (Atrovent Hfa) 17 Mcg Aer, 1 PUFF INH QID for COPD, #12.9 GRAMS 5 Refills 08/18/24 Patients Own Medication (PATIENTS OWN MEDICATION) ., 1 QID for IPTROPIUM SOLUTION PTS OWN MED-OBTAIN FROM PT AND SEND TO RX DRUG: FREQ: RX# EXP: DATE DISP: TECH: RP: 08/18/24 Cyanocobalamin (Vitamin B12) 1,000 Mcg Tab, 5000 MCG PO DAILY, TAB 08/18/24 Alpha Tocopheryl Acid Succinat (VITAMIN E) 100 Unit Tab, 100 UNIT PO DAILY, TAB 08/18/24 Ascorbic Acid (VITAMIN C TABLET) 500 Mg Tb, 1 TAB PO DAILY, #30 TAB 3 Refills 08/18/24 Magnesium Oxide (MAGNESIUM OXIDE) 400 Mg Tab, 1 TAB PO DAILY, #30 TAB 5 Refills 08/18/24 Atogepant (Qulipta) 60 Mg Tab, 60 MG PO DAILY for MIGRAINE HEADACHES, TAB 08/18/24 Meclizine Hcl (Meclizine Hcl) 25 Mg Tab, 25 MG PO TIDP PRN for DIZZINESS for 30 Days, MG 08/18/24 Furosemide (Lasix) 20 Mg Tb, 1 TAB PO QAM for EDEMA, #90 TAB 1 Refill 08/18/24 Ondansetron Odt 4MG Tab (ZOFRAN PO) 4 Mg Tb, 8 MG PO QIDP for NAUSEA/VOMITING, TAB ODT TAB-DISSOLVE IN MOUTH, THEN SWALLOW 08/18/24 Multiple Vitamin (Multivitamins) Tab, 1 TAB PO DAILY, #90 TAB 3 Refills 08/18/24 Multiple Vitamins W/ Minerals (Hair/Skin/Nails) 1 Cap Cap, 2 GUM PO QAM for SUPPLEMENT, CAP 08/18/24 Sucralfate (CARAFATE) 1 Gm Tab, 1 GM PO QID for GERD, TAB 08/18/24 Orlistat (Xenical) 120 Mg Cap, 120 MG PO TID for WEIGHT LOSS, CAP 08/18/24 Rimegepant Sulfate (Nurtec) 75 Mg Tab, 75 MG PO DAILY for HEADACHE, TAB 08/18/24 Albuterol Sulfate (Albuterol Sulfate) 0.083 % Neb, 1 VIAL NEB QID PRN for SOB or WHEEZING 02/16/23 Albuterol Sulfate (Albuterol Sulfate Hfa) 108 Mcg/Act Aer, 1 PUFF IN QID PRN for SHORTNESS OF BREATH 02/16/23 Gabapentin (Neurontin) 300 Mg Cap, 2 CAP PO TID for FIBROMYALGIA 02/16/23 Aspirin (Aspirin) 81 Mg Tab, 1 TAB PO DAILY for HEART ATTACK PREVENTION 02/16/23 Ferrous Sulfate (Ferrous Sulfate) 325 Mg Tab, 1 TAB PO DAILY for ANEMIA 02/16/23 Omeprazole (Omeprazole Dr) 40 Mg Cap, 1 CAP PO QAM for GERD 02/16/23 Montelukast Sodium (Singulair) 10 Mg Tab, 1 TAB PO DAILY for ASTHMA 02/16/23 Buspirone Hcl (Buspirone Hcl) 30 Mg Tab, 1 TAB PO BID for DEPRESSION 02/16/23 Hydroxyzine Hcl (Hydroxyzine Hcl) 50 Mg Tab, 4 TAB PO TID for ANXIETY 02/16/23 Pantoprazole Sodium Sesquihydr (Protonix) 40 Mg Tab, 1 TAB PO QPM for GERD 02/16/23 Aripiprazole (Abilify) 15 Mg Tab, 1 TAB PO DAILY for OCD 02/16/23 Bupropion Hcl (Wellbutrin Sr) 200 Mg Tab, 1 TAB PO BID for BIPOLAR DISORDER 02/16/23 Trazodone HCl (Trazodone Hydrochloride) 300 Mg Tab, 1 TAB PO HS for INSOMNIA 02/16/23 Fenofibrate (Tricor) 145 Mg Tab, 1 TAB PO QAM for HYPERLIPIDEMIA 02/16/23 Hydrocodone-Acetaminophen (Hydrocodone Bitartrate/AC 5-325 mg) 1 Tab Tab, 1 TAB PO TID PRN for MODERATE PAIN (4-6 PAIN SCALE) 02/16/23 Fluoxetine Hcl (Fluoxetine Hcl) 20 Mg Cap, 4 CAP PO QAM for BPD 02/16/23 Cholecalciferol (Vitamin D3 1.25 mg (87796 Ut)) 1 Cap Cap, 1 CAP PO QAM for VIT D DEFICIENCY 02/16/23 Metoprolol Succinate (Metoprolol Succinate Er) 25 Mg Tab, 1 TAB PO QAM for HYPERTENSION 02/16/23 Past Medical History Cardiac: HTN, IA, Hyperlipidemia Pulmonary: Asthma, COPD Central Nervous System: No pertinent Hx GI: No pertinent Hx Hemotology/Oncology: No pertinent Hx Hepatobiliary: No pertinent Hx Psychiatric: Anxiety, Bipolar Musculoskeletal: No pertinent Hx Rheumotologic: No pertinent Hx Infectious Disease: No peritnent Hx ENT: No pertinent Hx Renal/: No pertinent Hx Endocrine: No pertinent Hx Dermatology: No pertinent Hx Smoker: No Hx (Negative) Alocohol: None Drugs: None Lives with: With family Review of Systems Constitutional: No symptom reported Ears, Nose, & Throat: No symptom reported Eyes: No symptom reported Pulmonary/Respiratory: No symptom reported Cardiovascular: Chest Pain (radiating to right shoulder) Gastrointestinal: No symptom reported Genitourinary: No symptom reported Musculoskeletal: No symptom reported Skin: No symptom reported Psychiatric: No symptom reported Endocrine: No symptom reported Hemotologic/Lymphatic: No symptom reported All Other Systems anxiety, dizziness H&P Exam Vital Signs Vital Signs Date Time Temp Pulse Resp B/P (MAP) Pulse Ox O2 Delivery O2 Flow Rate FiO2 12/23/24 22:28 82 18 95 Room Air* 0 21 12/23/24 22:28 98.0 111/81 (91) 98.0 General Appeara: Well developed, Well nourished, Other (anxious) Head Exam: Normal inspection Neck Exam: Normal inspection, Non-tender, Normal alignment Eye Exam: bilateral eye Normal inspection, bilateral eye PERRL, bilateral eye EOMI Ear Exam: bilateral ear Auricle normal Nasal Exam: Normal inspection Mouth: Normal Inspection Pulmonary/Respiratory: Normal inspection, Normal breath sounds, Chest non- tender, Lungs clear Cardiovascular/Chest: Normal inspection, Regular rate, Normal Rhythm Peripheral Pulses: 2+ dorsalis pedis (R), 2+ dorsalis pedis (L), 2+ Radial (R), 2+ Radial (L) Abdominal Exam: Normal bowel sounds, Soft, No tenderness Rectal Exam: Deferred Back Exam: Normal inspection Shoulder Exam: Normal inspection, Non-tender, Normal ROM [employer] Exam: Normal hearing, Normal speech, PERRL Neuro/Mental St: Alert, Oriented Appearance: Appropriate appearance, Appropriate insight Eye contact/ Speech: Cooperative, Good eye contact, Normal speech Thoughts/Psych: Other (anxious) Skin Exam: Normal inspection, Normal color, Warm/dry Labs/Xrays Labs Test 12/23/24 22:25 12/23/24 13:53 12/23/24 13:45 12/23/24 13:43 Range/Units Troponin I High Sensitivity < 3 L </=34 ng/L Urine Color Yellow Yellow Urine Clarity Clear Clear Urine pH 7.0 5.0-9.0 Urine Specific [place] 1.025 1.001-1.035 Urine Protein Negative Negative Urine Ketones Negative Negative Urine Blood Negative Negative /uL Urine Nitrite Negative Negative Urine Bilirubin Negative Negative Urine Urobilinogen 4 H Negative mg/dL Urine Leukocyte Esterase Negative Negative /uL Urine RBC <1 0 - 4 /hpf Urine Microscopic WBC 1 0-5 /HPF Urine Squamous Epithelial Cells Few <5 /hpf Urine Bacteria Few H None Seen /hpf Urine Mucus Few None Seen Urine Glucose Normal Normal mg/dL Urine Opiates Screen Pos NEGATIVE Urine Fentanyl Screen Neg NEGATIVE Urine Barbiturates Screen Neg NEGATIVE Urine Phencyclidine Screen Neg NEGATIVE Urine Amphetamines Screen Neg NEGATIVE Urine Benzodiazepines Screen Neg NEGATIVE Urine Cocaine Screen Neg NEGATIVE Urine Cannabinoids Screen Neg NEGATIVE White Blood Count 7.0 4.4-10.8 10^3/uL Red Blood Count 3.91 L 4.0-5.20 10^6/uL Hemoglobin 11.6 L 12.2-16.2 g/dL Hematocrit 34.7 L 36.0-46.0 % Mean Corpuscular Volume 88.8 80.0-100.0 fL Mean Corpuscular Hemoglobin 29.6 28.0-32.0 pg Mean Corpuscular Hemoglobin Concent 33.4 32.0-36.0 g/dL Red Cell Distribution Width 14.2 11.8-14.3 % Platelet Count 182 140-450 10^3/uL Mean Platelet Volume 8.5 6.9-10.8 fL Neutrophils (%) (Auto) 65.0 37.0-80.0 % Lymphocytes (%) (Auto) 27.1 10.0-50.0 % Monocytes (%) (Auto) 6.0 0.0-12.0 % Eosinophils (%) (Auto) 1.2 0.0-7.0 % Basophils (%) (Auto) 0.7 0.0-2.0 % Neutrophils # (Auto) 4.6 1.6-8.6 10 ^3/uL Lymphocytes # (Auto) 1.9 0.4-5.4 10 ^3/uL Monocytes # (Auto) 0.4 0-1.3 10 ^3/uL Eosinophils # (Auto) 0.1 0-0.8 10 ^3/uL Basophils # (Auto) 0 0-0.2 10 ^3/uL Nucleated Red Blood Cells 0.0 % Prothrombin Time 10.7 9.3-11.8 sec Prothrombin Time INR 1.01 0.9-1.15 Activated Partial Thromboplast Time 26.1 24.5-34.5 SEC D-Dimer, Quantitative 0.36 0.0-0.49 mg/L FEU Sodium Level 143 136-145 mmol/L Potassium Level 4.3 3.5-5.1 mmol/L Chloride Level 110 H 98-107 mmol/L Carbon Dioxide Level 23 20-31 mmol/L Anion Gap 10 5-15 Blood Urea Nitrogen 7 L 9-23 mg/dL Creatinine 0.88 0.550-1.02 mg/dL Glomerular Filtration Rate Calc 83 >90 mL/min BUN/Creatinine Ratio 8.0 L 10.0-20.0 Serum Glucose 114 H 74-106 mg/dL Calcium Level 9.3 8.7-10.4 mg/dL Total Bilirubin 0.3 0.2-1.0 mg/dL Aspartate Amino Transferase (AST) 23 13-40 U/L Alanine Aminotransferase (ALT) 29 7-40 U/L Alkaline Phosphatase 64 46-116 U/L Total Protein 6.0 5.7-8.2 g/dL Albumin 4.3 3.2-4.8 g/dL Beta HCG, Quantitative 0.3 L 1.5-4.2 mIU/mL POC Glucose 118 H 70-106 mg/dl Assessment/Plan Problem List: (1) Chest pain (2) Dizziness (3) Syncope Plan This is a 44 year old female with a known history of anxiety, bipolar disorder, asthma, COPD, DM, hyperlipidemia, hypertension, IA who presents to the hospital with chest pain, unwitnessed syncopal episode, dizziness. 1. Chest pain r/o ACS 2. Syncope 3. Dizziness 4. Anxiety PLAN Admit Telemetry Cardiology consultation, 2D echo, serial troponin levels, ASA, Statin Fall precautions TSH level, UDS Psychiatric consultation Discussed all above with patient who verbalizes agreement and understanding of care plan. All questions were answered. Discussed assessment and care plan with supervising MD. Plan discussed with: Patient, Other Code Visit Code Visit Total Time (mins): 45 Additional Comments Additional Comments Additional Comments This is a 44 year old female with a known history of anxiety, bipolar disorder, asthma, COPD, DM, hyperlipidemia, hypertension, IA who presents to the hospital with chest pain, unwitnessed syncopal episode, dizziness. Patient was found to have 1. Chest pain rule out IA 2. Near-syncope 3. Anxiety disorder 4. Bipolar disorder 5. Hypertension -we will get 2D echo cardiology consultation -pain meds as needed. -tele psych consultation. LORETA BAEZ Dec 24, 2024 00:11 MICHAEL VELÁSQUEZ MD Dec 24, 2024 16:33
[2024-12-24] MEDS: ONDANSETRON HCL 4 MG/2 ML VIAL IV PRN (01:50)
[2024-12-24] MEDS: MORPHINE SULFATE INJ 2 MG/ml SYRG IV PRN (01:50)
[2024-12-24] MEDS: ACETAMINOPHEN 325 MG TAB PO PRN (02:29)
[2024-12-24] MEDS: LORazepam 2MG/ML-1ML VIAL IV ONE (06:09)
[2024-12-24] MEDS: InsuLIN REG 1unit/0.01ml Soln (100units/ml) SC SCH (06:20)
[2024-12-24] MEDS: ACCU-CHEK COMFORT CURVE STRIP VI SCH (06:21)
[2024-12-24] MEDS: FUROSEMIDE 20 MG TAB PO SCH (06:24)
[2024-12-24] MEDS: HYDROcodone-ACET 5/325MG TAB PO PRN (09:06)
[2024-12-24] MEDS: FAMOTIDINE 20 MG TAB PO SCH (09:07)
[2024-12-24] MEDS: ASPirin 81 mg TAB PO SCH (09:07)
[2024-12-24] MEDS: ENOXAPARIN SOD 40 MG/0.4 ML SYRINGE SC SCH (09:08)
[2024-12-24 10:39] LABS: Basophils # (auto) 0 10 ^3/uL (0-0.2); Basophils % (auto) 0.8 % (0.0-2.0); Eosinophils # (auto) 0.1 10 ^3/uL (0-0.8); Eosinophils % (auto) 1.7 % (0.0-7.0); Hematocrit 36.1 % (36.0-46.0); Hemoglobin 12.4 g/dL (12.2-16.2); Lymphocytes # (auto) 1.3 10 ^3/uL (0.4-5.4); Lymphocytes % (auto) 25.1 % (10.0-50.0); Mean Corpuscular Hemoglobin 29.9 pg (28.0-32.0); Mean Corpuscular Hgb Conc. 34.3 g/dL (32.0-36.0); Mean Corpuscular Volume 87.2 fL (80.0-100.0); Monocytes # (auto) 0.3 10 ^3/uL (0-1.3); Monocytes % (auto) 5.7 % (0.0-12.0); Neutrophils # (auto) 3.5 10 ^3/uL (1.6-8.6); Neutrophils % (auto) 66.7 % (37.0-80.0); Platelet Count (auto) 185 10^3/uL (140-450); Red Blood Cells 4.14 10^6/uL (4.0-5.20); Red Cell Distribution Width 13.9 % (11.8-14.3); White Blood Cell 5.3 10^3/uL (4.4-10.8)
[2024-12-24 10:49] LABS: Anion Gap 7 (5-15); Carbon Dioxide 24 mmol/L (20-31); Potassium 3.8 mmol/L (3.5-5.1); Sodium 139 mmol/L (136-145)
[2024-12-24 10:50] LABS: Calcium 9.5 mg/dL (8.7-10.4)
[2024-12-24 10:54] LABS: Glucose 85 mg/dL (74-106)
[2024-12-24 10:55] LABS: BUN/Creatinine Ratio 7.1 (10.0-20.0); Blood Urea Nitrogen 6 mg/dL (9-23); Chloride 108 mmol/L (98-107); LDL Cholesterol 74 mg/dL (< 100); Triglycerides 184 mg/dL (< 150)
[2024-12-24 10:57] LABS: Cholesterol 139 mg/dL (< 200); HDL Cholesterol 48 mg/dL (40-59)
--- NOTE | 2024-12-24 12:10 | ECG ---
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
--- NOTE | 2024-12-24 12:10 | ECG ---
[facility] Test Date: 2024-12-23 Test Time: 14:24:45 Pat Name: YEIMY ANAYA Department: ER Room: 0296T Gender: F [employer]: BYRON : 1980 Requested By: AARON NUNES Order Number: [id number] Reading MD: Measurements Intervals [place] Rate: 87 P: 72 ID: [id number] QRS: 47 QRSD: 100 T: 11 QT: 381 QTc: 459 Interpretive Statements Sinus rhythm Low voltage, extremity and precordial leads Baseline wander in lead(s) V6 Please click the below link to view image of tracing.
[2024-12-24] MEDS: ALBUTEROL SULF 2.5 MG/0.5ML(0.5%) NEB SOLN NEB PRN (16:08)
[2024-12-24] MEDS: LORazepam 0.5 MG TAB PO PRN (16:33)
[2024-12-24] MEDS: ATORVASTATIN 20 MG TAB PO SCH (21:50)
[2024-12-24] MEDS: traZODone HCL 50 MG TAB PO ONE (21:53)
[2024-12-25] VITALS (11 sets, daily range): BP systolic 90–122; BP diastolic 46–70; PULSE 64–87; RESP 15–18; TEMP 97.6–98.1; O2SAT 91–98
[2024-12-25 06:51] LABS: Basophils # (auto) 0.1 10 ^3/uL (0-0.2); Eosinophils # (auto) 0.2 10 ^3/uL (0-0.8); Hematocrit 33.9 % (36.0-46.0); Hemoglobin 11.4 g/dL (12.2-16.2); Lymphocytes # (auto) 1.6 10 ^3/uL (0.4-5.4); Mean Corpuscular Hemoglobin 30.4 pg (28.0-32.0); Mean Corpuscular Hgb Conc. 33.6 g/dL (32.0-36.0); Mean Corpuscular Volume 90.4 fL (80.0-100.0); Monocytes # (auto) 0.3 10 ^3/uL (0-1.3); Monocytes % (auto) 5.8 % (0.0-12.0); Neutrophils # (auto) 3.1 10 ^3/uL (1.6-8.6); Neutrophils % (auto) 59.2 % (37.0-80.0); Nucleated Red Blood Cells % 0.1 %; Platelet Count (auto) 160 10^3/uL (140-450); Red Blood Cells 3.75 10^6/uL (4.0-5.20); Red Cell Distribution Width 14.5 % (11.8-14.3); White Blood Cell 5.3 10^3/uL (4.4-10.8)
[2024-12-25 07:06] LABS: Potassium 3.7 mmol/L (3.5-5.1); Sodium 141 mmol/L (136-145)
[2024-12-25 07:07] LABS: Anion Gap 8 (5-15); Calcium 9.3 mg/dL (8.7-10.4); Carbon Dioxide 25 mmol/L (20-31)
[2024-12-25 07:12] LABS: BUN/Creatinine Ratio 7.1 (10.0-20.0); Glucose 89 mg/dL (74-106)
[2024-12-25 07:14] LABS: Blood Urea Nitrogen 6 mg/dL (9-23); Chloride 108 mmol/L (98-107)
[2024-12-25] MEDS: ACETAMINOPHEN 325 MG TAB PO PRN (10:00)
[2024-12-25 10:27] LABS: Hepatitis B Surface Antigen Negative (Negative); Hepatitis C Antibody Negative (Negative)
--- NOTE | 2024-12-25 12:30 | DVHSR ---
APPROVED REPORT EXAM: Two-dimensional and M-mode echocardiogram with Doppler and color Doppler. Mitral Valve MitralMitral Stenosis E/A ratio0.02D MVAcm2 LEFT VENTRICLE The left ventricle is normal size. There is normal left ventricular wall thickness. The left ventricle is normal in structure and function. Left ventricle systolic function is normal. The Ejection Fraction is 55-60%. No regional wall motion abnormalities noted. RIGHT VENTRICLE The right ventricle is normal size. There is normal right ventricular wall thickness. The right ventricular systolic function is normal. ATRIA The left atrium size is normal. The right atrium size is normal. The interatrial septum is intact with no evidence for an atrial septal defect. MITRAL VALVE The mitral valve is normal in structure and function. There is no evidence of mitral valve prolapse. There is no mitral valve stenosis. There is no mitral valve regurgitation noted. PULMONIC VALVE The pulmonary valve is normal in structure and function. There is no pulmonic valvular regurgitation. There is no pulmonic valvular stenosis. TRICUSPID VALVE The tricuspid valve is normal in structure and function. There is no tricuspid valve regurgitation noted. There is no tricuspid valve prolapse or vegetation. There is no tricuspid valve stenosis. AORTIC VALVE The aortic valve is normal in structure and function. No aortic regurgitation is present. There is no aortic valvular stenosis. There is no aortic valvular vegetation. GREAT VESSELS The aortic root is normal in size. PERICARDIAL EFFUSION There is a no pericardial effusion. Conclusion There is normal left ventricular wall thickness. The left ventricle is normal in structure and function. Left ventricle systolic function is normal. The Ejection Fraction is 55-60%. There is no gross valvular pathology There is no pericardial effusion.
[2024-12-25] MEDS: diphenhdrAMINE HCL 50 MG/1 ML VL IV PRN (16:36)
--- NOTE | 2024-12-25 16:48 | DVHPN2 ---
Objective Vitals Vital Signs Date Time Temp Pulse Resp B/P (MAP) Pulse Ox O2 Delivery O2 Flow Rate FiO2 12/25/24 16:41 98.0 83 15 101/51 (68) 94 98.0 12/25/24 09:17 Nasal Cannula 3.0 12/25/24 09:17 32 Intake/Output Intake and Output 12/25/24 07:00 Intake Total 1645 ml Balance 1645 ml Intake Oral 1645 ml # Voids 7 # Bowel Movements 1 Medications Current Medications Medications Dose Ordered Sig/Arleen Route Start Time Stop Time Status Last Admin Dose Admin Nitroglycerin 0.4 mg Q5MINP PRN SL 12/23/24 23:45 Morphine Sulfate 2 mg Q30M PRN IV 12/23/24 23:45 12/24/24 22:51 2 MG Diagnostic Test (Pha) 1 strip ACHS 12/24/24 07:00 12/25/24 11:42 1 STRIP Insulin Human Regular ACHS SC 12/24/24 07:00 12/25/24 11:46 2 UNITS Dextrose 50 ml UD PRN IV 12/23/24 23:45 Ondansetron HCl 4 mg Q6HPRN PRN IV 12/23/24 23:45 12/25/24 12:03 4 MG Famotidine 20 mg BID PO 12/24/24 10:00 12/25/24 09:55 20 MG Enoxaparin Sodium 40 mg DAILY SC 12/24/24 10:00 12/25/24 09:55 40 MG Aspirin 81 mg DAILY PO 12/24/24 10:00 12/25/24 09:55 81 MG Atorvastatin Calcium 40 mg HS PO 12/24/24 22:00 12/24/24 21:50 40 MG Furosemide 20 mg BIDD PO 12/24/24 06:00 12/25/24 06:12 20 MG Acetaminophen/ Hydrocodone Bitart 1 tab Q6HPRN PRN PO 12/24/24 04:15 12/25/24 12:04 1 TAB Acetaminophen 650 mg Q6HPRN PRN PO 12/24/24 05:45 12/25/24 10:00 650 MG Lorazepam 0.5 mg TIDPRN PRN PO 12/24/24 16:00 12/25/24 14:40 0.5 MG Albuterol 2.5 mg Q4HPRN PRN NEB 12/24/24 16:00 12/25/24 09:17 2.5 MG Diphenhydramine HCl 25 mg Q4HP PRN IV 12/25/24 15:45 12/25/24 16:36 25 MG Laboratory Results Laboratory Tests 12/25/24 06:08 Chemistry Test 12/25/24 06:08 Calcium Level 9.3 mg/dL (8.7-10.4) Urinalysis Test 12/23/24 13:53 Urine Color Yellow (Yellow) Urine Clarity Clear (Clear) Urine pH 7.0 (5.0-9.0) Urine Specific [place] 1.025 (1.001-1.035) Urine Protein Negative (Negative) Urine Ketones Negative (Negative) Urine Blood Negative /uL (Negative) Urine Nitrite Negative (Negative) Urine Bilirubin Negative (Negative) Urine Urobilinogen 4 mg/dL (Negative) H Urine Leukocyte Esterase Negative /uL (Negative) Urine RBC <1 /hpf (0 - 4) Urine Microscopic WBC 1 /HPF (0-5) Urine Squamous Epithelial Cells Few /hpf (<5) Urine Bacteria Few /hpf (None Seen) H Urine Mucus Few (None Seen) Urine Glucose Normal mg/dL (Normal) Microbiology Microbiology Date/Time Source Procedure Growth Status 12/24/24 14:26 Stool Clostridium difficile Toxin Assay - Final Complete 12/24/24 01:32 Nose MRSA Screen - Final Complete Assessment/Plan My Orders Orders - MICHAEL VELÁSQUEZ MD Procedure Category Date Status Time Diphenhdramine PHA 12/25/24 In Process Injection (Benadryl 15:45 MICHAEL VELÁSQUEZ MD Dec 25, 2024 16:48
--- NOTE | 2024-12-25 17:24 | DVHINCON2 ---
Date of Service if different f: Dec 25, 2024 Time of Service: 16:47 Consultation ([facility]) Consulting Physician: CORA BELTRAN MD Labs Laboratory Tests Test 12/23/24 13:45 12/23/24 13:53 12/23/24 22:25 12/24/24 10:04 Prothrombin Time 10.7 sec (9.3-11.8) Prothromb Time International Ratio 1.01 (0.9-1.15) Activated Partial Thromboplast Time 26.1 SEC (24.5-34.5) D-Dimer, Quantitative 0.36 mg/L FEU (0.0-0.49) Total Bilirubin 0.3 mg/dL (0.2-1.0) Aspartate Amino Transf (AST/SGOT) 23 U/L (13-40) Alanine Aminotransferase (ALT/SGPT) 29 U/L (7-40) Alkaline Phosphatase 64 U/L (46-116) Total Protein 6.0 g/dL (5.7-8.2) Albumin 4.3 g/dL (3.2-4.8) Beta HCG, Quantitative 0.3 mIU/mL (1.5-4.2) Urine Color Yellow (Yellow) Urine Clarity Clear (Clear) Urine pH 7.0 (5.0-9.0) Urine Specific [place] 1.025 (1.001-1.035) Urine Protein Negative (Negative) Urine Ketones Negative (Negative) Urine Blood Negative /uL (Negative) Urine Nitrite Negative (Negative) Urine Bilirubin Negative (Negative) Urine Urobilinogen 4 mg/dL (Negative) Urine Leukocyte Esterase Negative /uL (Negative) Urine RBC <1 /hpf (0 - 4) Urine Microscopic WBC 1 /HPF (0-5) Urine Squamous Epithelial Cells Few /hpf (<5) Urine Bacteria Few /hpf (None Seen) Urine Mucus Few (None Seen) Urine Glucose Normal mg/dL (Normal) Urine Opiates Screen Pos (NEGATIVE) Urine Fentanyl Screen Neg (NEGATIVE) Urine Barbiturates Screen Neg (NEGATIVE) Urine Phencyclidine Screen Neg (NEGATIVE) Urine Amphetamines Screen Neg (NEGATIVE) Urine Benzodiazepines Screen Neg (NEGATIVE) Urine Cocaine Screen Neg (NEGATIVE) Urine Cannabinoids Screen Neg (NEGATIVE) Thyroid Stimulating Hormone (TSH) 2.62 uIU/mL (0.55-4.78) Hemoglobin A1c 5.2 % A1C (<5.7) Triglycerides Level 184 mg/dL (< 150) Cholesterol Level 139 mg/dL (< 200) LDL Cholesterol 74 mg/dL (< 100) HDL Cholesterol 48 mg/dL (40-59) Hepatitis B Surface Antigen Negative (Negative) Hepatitis C Antibody Negative (Negative) Test 12/24/24 14:44 12/25/24 06:08 12/25/24 11:04 Troponin I High Sensitivity < 3 ng/L (</=34) White Blood Count 5.3 10^3/uL (4.4-10.8) Red Blood Count 3.75 10^6/uL (4.0-5.20) Hemoglobin 11.4 g/dL (12.2-16.2) Hematocrit 33.9 % (36.0-46.0) Mean Corpuscular Volume 90.4 fL (80.0-100.0) Mean Corpuscular Hemoglobin 30.4 pg (28.0-32.0) Mean Corpuscular Hemoglobin Concent 33.6 g/dL (32.0-36.0) Red Cell Distribution Width 14.5 % (11.8-14.3) Platelet Count 160 10^3/uL (140-450) Mean Platelet Volume 8.5 fL (6.9-10.8) Neutrophils (%) (Auto) 59.2 % (37.0-80.0) Lymphocytes (%) (Auto) 31.0 % (10.0-50.0) Monocytes (%) (Auto) 5.8 % (0.0-12.0) Eosinophils (%) (Auto) 3.0 % (0.0-7.0) Basophils (%) (Auto) 1.0 % (0.0-2.0) Neutrophils # (Auto) 3.1 10 ^3/uL (1.6-8.6) Lymphocytes # (Auto) 1.6 10 ^3/uL (0.4-5.4) Monocytes # (Auto) 0.3 10 ^3/uL (0-1.3) Eosinophils # (Auto) 0.2 10 ^3/uL (0-0.8) Basophils # (Auto) 0.1 10 ^3/uL (0-0.2) Nucleated Red Blood Cells 0.1 % Sodium Level 141 mmol/L (136-145) Potassium Level 3.7 mmol/L (3.5-5.1) Chloride Level 108 mmol/L (98-107) Carbon Dioxide Level 25 mmol/L (20-31) Anion Gap 8 (5-15) Blood Urea Nitrogen 6 mg/dL (9-23) Creatinine 0.85 mg/dL (0.550-1.02) Glomerular Filtration Rate Calc 86 mL/min (>90) BUN/Creatinine Ratio 7.1 (10.0-20.0) Serum Glucose 89 mg/dL (74-106) Calcium Level 9.3 mg/dL (8.7-10.4) Bedside Glucose 137 mg/dl (70-106) Microbiology Date/Time Source Procedure Growth Status 12/24/24 14:26 Stool Clostridium difficile Toxin Assay - Final Complete 12/24/24 01:32 Nose MRSA Screen - Final Complete Appearance: Stated age Psychomotor activity: WNL, Calm Behavioral: Cooperative Eye contact: Appropriate Speech: WNL Affect: Appropriate, Mood Congruent Mood: Euthymic Thought processes: Linear/Goal-directed Thought content: WNL Suicidal ideations: Absent Homicidal ideations: Absent Orientation: Person, Place, Time, Situation Memory intact: Recent Intellect: Average Abstractability: WNL Concentration: Adequate Attention: Adequate Judgement: WNL Insight: Good Vitals Vital Signs Date Time Temp Pulse Resp B/P (MAP) Pulse Ox O2 Delivery O2 Flow Rate FiO2 12/25/24 16:41 98.0 83 15 101/51 (68) 94 98.0 12/25/24 09:17 Nasal Cannula 3.0 12/25/24 09:17 32 Current medications Current Medications Medications Dose Ordered Sig/Arleen Route Start Time Stop Time Status Last Admin Dose Admin Nitroglycerin 0.4 mg Q5MINP PRN SL 12/23/24 23:45 Morphine Sulfate 2 mg Q30M PRN IV 12/23/24 23:45 12/24/24 22:51 2 MG Diagnostic Test (Pha) 1 strip ACHS 12/24/24 07:00 12/25/24 11:42 1 STRIP Insulin Human Regular ACHS SC 12/24/24 07:00 12/25/24 11:46 2 UNITS Dextrose 50 ml UD PRN IV 12/23/24 23:45 Ondansetron HCl 4 mg Q6HPRN PRN IV 12/23/24 23:45 12/25/24 12:03 4 MG Famotidine 20 mg BID PO 12/24/24 10:00 12/25/24 09:55 20 MG Enoxaparin Sodium 40 mg DAILY SC 12/24/24 10:00 12/25/24 09:55 40 MG Aspirin 81 mg DAILY PO 12/24/24 10:00 12/25/24 09:55 81 MG Atorvastatin Calcium 40 mg HS PO 12/24/24 22:00 12/24/24 21:50 40 MG Furosemide 20 mg BIDD PO 12/24/24 06:00 12/25/24 06:12 20 MG Acetaminophen/ Hydrocodone Bitart 1 tab Q6HPRN PRN PO 12/24/24 04:15 12/25/24 12:04 1 TAB Acetaminophen 650 mg Q6HPRN PRN PO 12/24/24 05:45 12/25/24 10:00 650 MG Lorazepam 0.5 mg TIDPRN PRN PO 12/24/24 16:00 12/25/24 14:40 0.5 MG Albuterol 2.5 mg Q4HPRN PRN NEB 12/24/24 16:00 12/25/24 09:17 2.5 MG Diphenhydramine HCl 25 mg Q4HP PRN IV 12/25/24 15:45 12/25/24 16:36 25 MG Treatment plan discussed: With staff Medication adjusted: Yes Labs ordered: No Psychotherapy provided: No Type: Voluntary History of Present Illness Reason for Consult: psychiatric evaluation for medication evaluation PER H&P: Mrs. Gisselle Bennett is a 44 year old female with a history of Anxiety, asthma, COPD, DM, HLD, HTN, [place], bipolar disorder who presents with chief complaint of chest pain. Patient reports that she has been experiencing right sided constant, sharp, and heavy chest pain with radiation to the right shoulder since earlier yesterday. Patient relays that she also suffered syncopal episode with dizziness, however, she has had multiple in the past 6 months. Patient reports she was seen at [facility] for her syncopal episodes and has a cardiology hoda ointment in a couple weeks. Patient denies SI, headaches, palpitations, dyspnea, blurry vision, nausea, vomiting, fevers, chills, dysuria. Patient also endorses anxiety. Patient admitted for further evaluation. PSYCHIATRIST HPI: The patient was seen and evaluated at [facility] via telepsychiatry platform. 44 yr old female was admitted 12/23 for syncopal episode. She stated that she has been treated by her psychiatrist for the past twenty years and has high anxiety/OCD, bipolar and fibromyalgia. She feels her current medication regimen works well for her and she has a good MH team in [place] who take care of her. She noted that she feels good here and doesn't have any more anxiety than her baseline. She denied having SI/HI/AVH. Past Psychiatric History : Two hospitalizations, last time 15 yrs ago. Two past suicide attempts. Diagnosed with bipolar disorder, OCD. Sees psychiatrist Dr Bowers for past 20 years. She has a SW and nurse support team. Current medications: Prozac 80mg qam, Wellbutrin 300mg BID, Atarax 100mg TID, Buspar 30mg BID, Abilify 15mg qam, Trazodone 300mg qhs, two liters of oxygen. Allergic history: sulfa antibiotics Past Medical History : asthma, COPD, [place], DM, HLD, HTN, [place], fibromyalgia, ovarian cyst, low back pain, carpal tunnel. Substance Use: Occasional THC edibles for sleep. Denied use of alcohol and other drug use. Social History : Lives in [place] with daughter who is her caregiver. , together 22 yrs. SSI. DIAGNOSIS: UNSPECIFIED ANXIETY DISORDER Formulation: This 44 yr old female appears to suffer from anixety with OCD and Bipolar disorder. She also has signficant COPD and sleep apnea so the hypoxia could further increase her anxiety. She may benefit from restarting her outpatient medications. However, her stated wellbutrin dose of 300mg BID is over the recommend max of 450mg daily. Hence I would start the Wellbutrin at 300mg qam. Plan: 1. The patient is a low risk for self-harm and is psychologically cleared for discharge. 2. Legal: voluntary. 3. Medications: Recommend starting the following: Prozac 80 mg qam Wellbutrin 300mg qam Hydroxyzine 100 mg TID PRN anxiety (she typically takes the morning dose and then will take midday and bedtime dose only if very anxious) Buspar 30mg BID Abilify 15mg qam Trazodone 150mg qhs prn sleep 4. Case discussed with Team DENA Alonso. 5. Please recontact psychiatry for further follow up or reevaluation. Assessment/Diagnosis/Plan Reviewed: Labs, Medications, Other CORA BELTRAN MD Dec 25, 2024 16:51
--- NOTE | 2024-12-25 18:33 | DVHINCON2 ---
DATE OF CONSULTATION: 12/25/2024 REFERRING PHYSICIAN: Dr. John Rowley. CONSULTING PHYSICIAN: Dr. Karen Vargas. INDICATION: Chest pain. HISTORY OF PRESENT ILLNESS: The patient is a 44-year-old female with history of hypertension, asthma, COPD, diabetes, presented to the hospital with complaints of chest pain. Described the pain as a sharp right sided. She also gives history of brief loss of consciousness about 2 days ago. The patient stated that she is being evaluated at [facility] for recurrent syncopal episodes. OR was ruled out with serial negative troponin. PAST MEDICAL HISTORY: * Asthma. * Hypertension. * COPD. * Obesity. MEDICATIONS: Per med rec. ALLERGIES: SULFA DRUGS. PHYSICAL EXAMINATION: GENERAL: Alert and awake, in no form of cardiopulmonary distress. VITAL SIGNS: Blood pressure 120/70, pulse 64 per minute, saturation 92%. HEENT: No carotid bruits. No jugular venous distention. CHEST: Bilateral air entry. CARDIOVASCULAR: Submucosal and palpable. Normal S1, S2. Regular rate and rhythm. No appreciable gallop, rubs, or clicks. EXTREMITIES: No peripheral edema. DIAGNOSTIC DATA: CBC is normal. Sodium 141, potassium 3.7, creatinine 0.8. Troponin negative x 3. ASSESSMENT: * Chest pain syndrome, atypical. Myocardial infarction has been ruled out, serial negative troponin. * Recurrent syncope, unclear etiology. * Chronic obstructive pulmonary disease. * Asthma. * History of pulmonary hypertension. * Obesity. RECOMMENDATIONS: * Continue with aspirin for now. * Continue statin therapy. * Monitor electrolytes closely. * Continue tele monitoring. * We will review echo once completed. * If echo unremarkable, no further inpatient cardiac workup indicated. The patient advised to follow up with [facility] upon discharge. Thank you for allowing me to participate in the care of this patient. MD SHANON Peoples/NOLA TID: [id number] RECEIPT: [id number]
--- NOTE | 2024-12-26 16:27 | DVHDS2 ---
Discharge Summary Date of Admission Dec 23, 2024 at 23:36 Date of Discharge: Dec 25, 2024 Labs/Diagnostic Data: Laboratory Results Test 12/25/24 17:35 12/25/24 06:08 12/24/24 14:44 12/24/24 10:04 POC Glucose 98 mg/dl (70-106) White Blood Count 5.3 10^3/uL (4.4-10.8) Red Blood Count 3.75 10^6/uL (4.0-5.20) Hemoglobin 11.4 g/dL (12.2-16.2) Hematocrit 33.9 % (36.0-46.0) Mean Corpuscular Volume 90.4 fL (80.0-100.0) Mean Corpuscular Hemoglobin 30.4 pg (28.0-32.0) Mean Corpuscular Hemoglobin Concent 33.6 g/dL (32.0-36.0) Red Cell Distribution Width 14.5 % (11.8-14.3) Platelet Count 160 10^3/uL (140-450) Mean Platelet Volume 8.5 fL (6.9-10.8) Neutrophils (%) (Auto) 59.2 % (37.0-80.0) Lymphocytes (%) (Auto) 31.0 % (10.0-50.0) Monocytes (%) (Auto) 5.8 % (0.0-12.0) Eosinophils (%) (Auto) 3.0 % (0.0-7.0) Basophils (%) (Auto) 1.0 % (0.0-2.0) Neutrophils # (Auto) 3.1 10 ^3/uL (1.6-8.6) Lymphocytes # (Auto) 1.6 10 ^3/uL (0.4-5.4) Monocytes # (Auto) 0.3 10 ^3/uL (0-1.3) Eosinophils # (Auto) 0.2 10 ^3/uL (0-0.8) Basophils # (Auto) 0.1 10 ^3/uL (0-0.2) Nucleated Red Blood Cells 0.1 % Sodium Level 141 mmol/L (136-145) Potassium Level 3.7 mmol/L (3.5-5.1) Chloride Level 108 mmol/L (98-107) Carbon Dioxide Level 25 mmol/L (20-31) Anion Gap 8 (5-15) Blood Urea Nitrogen 6 mg/dL (9-23) Creatinine 0.85 mg/dL (0.550-1.02) Glomerular Filtration Rate Calc 86 mL/min (>90) BUN/Creatinine Ratio 7.1 (10.0-20.0) Serum Glucose 89 mg/dL (74-106) Calcium Level 9.3 mg/dL (8.7-10.4) Troponin I High Sensitivity < 3 ng/L (</=34) Hemoglobin A1c 5.2 % A1C (<5.7) Triglycerides Level 184 mg/dL (< 150) Cholesterol Level 139 mg/dL (< 200) LDL Cholesterol 74 mg/dL (< 100) HDL Cholesterol 48 mg/dL (40-59) Hepatitis B Surface Antigen Negative (Negative) Hepatitis C Antibody Negative (Negative) Test 12/23/24 22:25 12/23/24 13:53 12/23/24 13:45 Thyroid Stimulating Hormone (TSH) 2.62 uIU/mL (0.55-4.78) Urine Color Yellow (Yellow) Urine Clarity Clear (Clear) Urine pH 7.0 (5.0-9.0) Urine Specific [place] 1.025 (1.001-1.035) Urine Protein Negative (Negative) Urine Ketones Negative (Negative) Urine Blood Negative /uL (Negative) Urine Nitrite Negative (Negative) Urine Bilirubin Negative (Negative) Urine Urobilinogen 4 mg/dL (Negative) Urine Leukocyte Esterase Negative /uL (Negative) Urine RBC <1 /hpf (0 - 4) Urine Microscopic WBC 1 /HPF (0-5) Urine Squamous Epithelial Cells Few /hpf (<5) Urine Bacteria Few /hpf (None Seen) Urine Mucus Few (None Seen) Urine Glucose Normal mg/dL (Normal) Urine Opiates Screen Pos (NEGATIVE) Urine Fentanyl Screen Neg (NEGATIVE) Urine Barbiturates Screen Neg (NEGATIVE) Urine Phencyclidine Screen Neg (NEGATIVE) Urine Amphetamines Screen Neg (NEGATIVE) Urine Benzodiazepines Screen Neg (NEGATIVE) Urine Cocaine Screen Neg (NEGATIVE) Urine Cannabinoids Screen Neg (NEGATIVE) Prothrombin Time 10.7 sec (9.3-11.8) Prothrombin Time INR 1.01 (0.9-1.15) Activated Partial Thromboplast Time 26.1 SEC (24.5-34.5) D-Dimer, Quantitative 0.36 mg/L FEU (0.0-0.49) Total Bilirubin 0.3 mg/dL (0.2-1.0) Aspartate Amino Transferase (AST) 23 U/L (13-40) Alanine Aminotransferase (ALT) 29 U/L (7-40) Alkaline Phosphatase 64 U/L (46-116) Total Protein 6.0 g/dL (5.7-8.2) Albumin 4.3 g/dL (3.2-4.8) Beta HCG, Quantitative 0.3 mIU/mL (1.5-4.2) Other Laboratory Tests 12/25/24 06:08 Brief Hx & Hospital Course: This is a 44 year old female with a known history of anxiety, bipolar disorder, asthma, COPD, DM, hyperlipidemia, hypertension, [place] who presents to the hospital with chest pain, unwitnessed syncopal episode, dizziness. Patient was e ventually admitted. Patient currently on so many psych medications. Tele psych was consulted. Patient was ruled out for [place]. Patient was left against medical advice before completion of workup and treatment. Condition at Discharge: Undetermined Final Diagnosis/Problems List This is a 44 year old female with a known history of anxiety, bipolar disorder, asthma, COPD, DM, hyperlipidemia, hypertension, [place] who presents to the hospital with chest pain, unwitnessed syncopal episode, dizziness. Patient was found to have 1. Chest pain ruled out [place] 2. Near-syncope 3. Anxiety disorder 4. Bipolar disorder 5. Hypertension Discharge Disposition: AMA SNF Discharge Will this Physician continue t: No Discharge Statement: "Patient was advised to return to the ER or call 911 if any headaches, dizziness, shortness of breath, chest pain, abdominal pain, bleeding, fevers, or worsening of medical condition. Patient was counseled about treatment plan, medications, possible side effects, patientverbalized understanding. All questions were answered to the best of my ability. This discharge took greater then 30 minutes in planning, reviewing documentation, counseling the patient, and discussing with other team members." ASSESSMENT ASSESSMENT Assessment Date of Service: Dec 26, 2024 Billing Provider: MICHAEL VELÁSQUEZ MD Common Visit Codes: NOT BILLABLE MICHAEL VELÁSQUEZ MD Dec 26, 2024 16:26
== END 2024-12-25 20:50 | disposition left against medical advice (07) | DRG 756 ==
LOC: ER 13:32 → TELE 23:36 → TELE-WESTW 12-24 03:28
PROVIDERS: ADMIT Nurse Practitioner Family; ATTEND Nurse Practitioner Family
DX: F41.9 Anxiety disorder, unspecified (principal); J93.9 Pneumothorax, unspecified; R07.89 Other chest pain; I25.2 Old myocardial infarction; Z53.29 Procedure and treatment not carried out because of patient's decision for other reasons; F31.32 Bipolar disorder, current episode depressed, moderate; J44.9 Chronic obstructive pulmonary disease, unspecified; J44.89 Other specified chronic obstructive pulmonary disease; J45.909 Unspecified asthma, uncomplicated; E11.9 Type 2 diabetes mellitus without complications; E66.9 Obesity, unspecified; Z68.41 Body mass index [BMI] 40.0-44.9, adult; E78.5 Hyperlipidemia, unspecified; Z79.82 Long term (current) use of aspirin; I10 Essential (primary) hypertension; Z90.49 Acquired absence of other specified parts of digestive tract; Z98.84 Bariatric surgery status; Z79.899 Other long term (current) drug therapy; Z79.4 Long term (current) use of insulin; Z88.2 Allergy status to sulfonamides
CPT/HCPCS: 36415; 70450; 71045; 80048; 80053; 80061; 80307; 81001; 82962; 83036; 84443; 84484; 84702; 85025; 85379; 85610; 85730; 86803; 87081; 87340; 87493; 93005; 93306; 94640; G0378; J1815; J1885; J2405

== ENCOUNTER 2025-05-24 15:56 | Emergency (ER) | payer MEDICAID ==
[~2025-05-24] VITALS: Ht 165.1 cm; Wt 94.0 kg
[~2025-05-24 15:56] MED LIST changes: -BACL10TA PO
--- NOTE | 2025-05-24 16:26 | ED.PDOC ---
History of Present Illness HPI Comments This is a 44 year old female presenting to the ED with chief complaint of facial pain. Patient reports that she has been experiencing right sided facial pain with associated radiation to the right side of her head for the past week. Patient relays that her pain is a squeezing, pressure-like pain. Patient denies any injury, fall, chest pain, SOB, dizziness, vomiting, numbness, weakness, or tingling. Time Seen by MD: 16:22 Primary Care Provider: MAURO Reviewed Notes: Nurses Notes, Medications, Allergies Allergies: Coded Allergies: Sulfamethoxazole w/Trimethoprim (Verified Allergy, Intermediate, N/V, ITCHING, FEEL HOT, 02/16/23) Sulfa Antibiotics (Verified Allergy, Unknown, HIVES, 08/18/24) Home Meds Reported Medications Atorvastatin Calcium (Lipitor) 10 Mg Tab, 1 TAB PO QAM, #90 TAB 1 Refill 08/18/24 Ipratropium [place] Hfa (Atrovent Hfa) 17 Mcg Aer, 1 PUFF INH QID for COPD, #12.9 GRAMS 5 Refills 08/18/24 Patients Own Medication (PATIENTS OWN MEDICATION) ., 1 QID for IPTROPIUM SOLUTION PTS OWN MED-OBTAIN FROM PT AND SEND TO RX DRUG: FREQ: RX# EXP: DATE DISP: TECH: RPH: 08/18/24 Cyanocobalamin (Vitamin B12) 1,000 Mcg Tab, 5000 MCG PO DAILY, TAB 08/18/24 Alpha Tocopheryl Acid Succinat (VITAMIN E) 100 Unit Tab, 100 UNIT PO DAILY, TAB 08/18/24 Ascorbic Acid (VITAMIN C TABLET) 500 Mg Tb, 1 TAB PO DAILY, #30 TAB 3 Refills 08/18/24 Magnesium Oxide (MAGNESIUM OXIDE) 400 Mg Tab, 1 TAB PO DAILY, #30 TAB 5 Refills 08/18/24 Atogepant (Qulipta) 60 Mg Tab, 60 MG PO DAILY for MIGRAINE HEADACHES, TAB 08/18/24 Meclizine Hcl (Meclizine Hcl) 25 Mg Tab, 25 MG PO TIDP PRN for DIZZINESS for 30 Days, MG 08/18/24 Furosemide (Lasix) 20 Mg Tb, 1 TAB PO QAM for EDEMA, #90 TAB 1 Refill 08/18/24 Ondansetron Odt 4MG Tab (ZOFRAN PO) 4 Mg Tb, 8 MG PO QIDP for NAUSEA/VOMITING, TAB ODT TAB-DISSOLVE IN MOUTH, THEN SWALLOW 08/18/24 Multiple Vitamin (Multivitamins) Tab, 1 TAB PO DAILY, #90 TAB 3 Refills 08/18/24 Multiple Vitamins W/ Minerals (Hair/Skin/Nails) 1 Cap Cap, 2 GUM PO QAM for SUPPLEMENT, CAP 08/18/24 Sucralfate (CARAFATE) 1 Gm Tab, 1 GM PO QID for GERD, TAB 08/18/24 Orlistat (Xenical) 120 Mg Cap, 120 MG PO TID for WEIGHT LOSS, CAP 08/18/24 Rimegepant Sulfate (Nurtec) 75 Mg Tab, 75 MG PO DAILY for HEADACHE, TAB 08/18/24 Albuterol Sulfate (Albuterol Sulfate) 0.083 % Neb, 1 VIAL NEB QID PRN for SOB or WHEEZING 02/16/23 Albuterol Sulfate (Albuterol Sulfate Hfa) 108 Mcg/Act Aer, 1 PUFF IN QID PRN for SHORTNESS OF BREATH 02/16/23 Gabapentin (Neurontin) 300 Mg Cap, 2 CAP PO TID for FIBROMYALGIA 02/16/23 Aspirin (Aspirin) 81 Mg Tab, 1 TAB PO DAILY for HEART ATTACK PREVENTION 02/16/23 Ferrous Sulfate (Ferrous Sulfate) 325 Mg Tab, 1 TAB PO DAILY for ANEMIA 02/16/23 Omeprazole (Omeprazole Dr) 40 Mg Cap, 1 CAP PO QAM for GERD 02/16/23 Montelukast Sodium (Singulair) 10 Mg Tab, 1 TAB PO DAILY for ASTHMA 02/16/23 Buspirone Hcl (Buspirone Hcl) 30 Mg Tab, 1 TAB PO BID for DEPRESSION 02/16/23 Hydroxyzine Hcl (Hydroxyzine Hcl) 50 Mg Tab, 4 TAB PO TID for ANXIETY 02/16/23 Pantoprazole Sodium Sesquihydr (Protonix) 40 Mg Tab, 1 TAB PO QPM for GERD 02/16/23 Aripiprazole (Abilify) 15 Mg Tab, 1 TAB PO DAILY for OCD 02/16/23 Bupropion Hcl (Wellbutrin Sr) 200 Mg Tab, 1 TAB PO BID for BIPOLAR DISORDER 02/16/23 Trazodone HCl (Trazodone Hydrochloride) 300 Mg Tab, 1 TAB PO HS for INSOMNIA 02/16/23 Fenofibrate (Tricor) 145 Mg Tab, 1 TAB PO QAM for HYPERLIPIDEMIA 02/16/23 Hydrocodone-Acetaminophen (Hydrocodone Bitartrate/AC 5-325 mg) 1 Tab Tab, 1 TAB PO TID PRN for MODERATE PAIN (4-6 PAIN SCALE) 02/16/23 Fluoxetine Hcl (Fluoxetine Hcl) 20 Mg Cap, 4 CAP PO QAM for BPD 02/16/23 Cholecalciferol (Vitamin D3 1.25 mg (04579 Ut)) 1 Cap Cap, 1 CAP PO QAM for VIT D DEFICIENCY 02/16/23 Metoprolol Succinate (Metoprolol Succinate Er) 25 Mg Tab, 1 TAB PO QAM for HYPERTENSION 02/16/23 Information Source: Patient Mode of Arrival: Ambulatory Severity: Moderate Timing: Weeks Duration: Since onset Past Medical History PAST MEDICAL HISTORY: Anxiety, Asthma, COPD, DM, High Lipids, HTN, AR Past Medical History (Other): Fibromyalgia Surgical History: Cholecystectomy, Hysterectomy AIRCRAFT WORKER History: Denies all AIRCRAFT WORKER Hx, No Pertinent AIRCRAFT WORKER History Family History Family History: Reviewed,noncontributory to illness, Unknown Social History Smoker: Non-Smoker Alcohol: Denies ETOH Use Drugs: Marijuana Lives In: Home Constitutional: denies: chills, diaphoresis, fatigue, fever, malaise, sweats, weakness, others EENTM: denies: blurred vision, double vision, ear bleeding, ear discharge, ear drainage, ear pain, ear ringing, eye pain, eye redness, hearing loss, mouth pain, mouth swelling, nasal discharge, nose bleeding, nose congestion, nose pain, photophobia, tearing, throat pain, throat swelling, voice changes, others Respiratory: denies: cough, hemoptysis, orthopnea, SOB at rest, shortness of breath, SOB with excertion, stridor, wheezing, others Cardiovascular: denies: chest pain, dizzy spells, diaphoresis, Dyspnea on exertion, edema, irregular heart beat, left arm pain, lightheadedness, palpitations, PND, syncope, others Gastrointestinal: denies: abdomen distended, abdominal pain, blood streaked bowels, constipated, diarrhea, dysphagia, difficulty swallowing, hematemesis, melena, nausea, poor appetite, poor fluid intake, rectal bleeding, rectal pain, vomiting, others Genitourinary: denies: abnormal vagina bleeding, burning, dyspareunia, dysuria, flank pain, frequency, hematuria, incontinence, pain, , vagina discharge, urgency, others Neurological: denies: dizziness, fainting, headache, left sided numbness, left sided weakness, numbness, paresthesia, pre-existing deficit, right sided numbness, right sided weakness, seizure, speech problems, tingling, tremors, weakness, others Musculoskeletal: reports: others (Rt facial pain); denies: back pain, gout, joint pain, joint swelling, muscle pain, muscle stiffness, neck pain Integumetry: denies: bruises, change in color, change in hair/nails, dryness, laceration, lesions, lumps, rash, wounds, others Allergic/Immunocompromised: denies: Difficulty Healing, Frequent Infections, Hives, Itching, others Hematologic/Lymphatic: denies: anemia, blood clots, easy bleeding, easy bruising, swollen glands, others Endocrine: denies: excessive hunger, excessive sweating, excessive thirst, excessive urination, flushing, intolerance to cold, intolerance to heat, unexplained weight gain, unexplained weight loss, others Psychiatric: denies: anxiety, bipolar disorder, depression, hopeless, panic disorder, schizophrenia, sleepless, suicidal, others All Other Systems: Reviewed and Negative Physical Exam General Appearance: No Apparent Distress, Normal HEENT: Normal ENT Inspection, Pharynx Normal, TMs Normal, Other (Tenderness with percussion to trigeminal nerve distribution) Neck: Full Range of Motion, Non-Tender, Normal, Normal Inspection Respiratory: Chest Non-Tender, Lungs Clear, No Accessory Muscle Use, No Respiratory Distress, Normal Breath Sounds Cardiovascular: No Edema, No JVD, No Murmur, No Gallop, Normal Peripheral Pulses, Regular Rate/Rhythm Breast Exam: Deferred Gastrointestinal: No Organomegaly, Non Tender, No Pulsatile Mass, Normal Bowel Sounds, Soft Genitalia: Deferred Pelvic: Deferred Rectal: Deferred Extremities: No calf tenderness, Normal capillary refill, Normal inspection, Normal range of motion, Non-tender, No pedal edema Musculoskeletal : Apperance: Normal Neurologic: Alert, pharmacogeneticist II-XII nml as Tested, No Motor Deficits, Normal Affect, Normal Mood, No Sensory Deficits Cerebellar Function: Normal Reflexes: Normal Skin: Dry, Normal Color, Warm Lymphatic: No Adenopathy Was a procedure done? Was a procedure done?: No Differential Dx Considerations may include: intracranial bleed, hypertensive emergency, cephalgia, trigeminal neuralgia, anxiety, medication noncompliance, temporal arteritis, TMJ., zoster X-Ray, Labs, Meds, VS Vital Signs Date Time Temp Pulse Resp B/P (MAP) Pulse Ox O2 Delivery O2 Flow Rate FiO2 05/24/25 17:16 67 20 95 Nasal Cannula 2.0 05/24/25 17:16 98.2 67 20 118/59 (78) 95 98.2 05/24/25 17:16 67 118/59 05/24/25 16:41 109 22 97 Room Air* 0 21 05/24/25 16:38 211/48 05/24/25 16:36 98.1 109 16 211/148 (169) 94 98.1 05/24/25 16:36 109 211/48 Lab Test 05/24/25 17:52 05/24/25 16:35 Range/Units Troponin I High Sensitivity Pending < 3 L </=34 ng/L White Blood Count 8.0 4.4-10.8 10^3/uL Red Blood Count 4.55 4.0-5.20 10^6/uL Hemoglobin 13.2 12.2-16.2 g/dL Hematocrit 38.8 36.0-46.0 % Mean Corpuscular Volume 85.4 80.0-100.0 fL Mean Corpuscular Hemoglobin 29.0 28.0-32.0 pg Mean Corpuscular Hemoglobin Concent 33.9 32.0-36.0 g/dL Red Cell Distribution Width 14.3 11.8-14.3 % Platelet Count 199 140-450 10^3/uL Mean Platelet Volume 8.3 6.9-10.8 fL Neutrophils (%) (Auto) 50.1 37.0-80.0 % Lymphocytes (%) (Auto) 40.3 10.0-50.0 % Monocytes (%) (Auto) 5.8 0.0-12.0 % Eosinophils (%) (Auto) 3.0 0.0-7.0 % Basophils (%) (Auto) 0.8 0.0-2.0 % Neutrophils # (Auto) 4.0 1.6-8.6 10 ^3/uL Lymphocytes # (Auto) 3.2 0.4-5.4 10 ^3/uL Monocytes # (Auto) 0.5 0-1.3 10 ^3/uL Eosinophils # (Auto) 0.2 0-0.8 10 ^3/uL Basophils # (Auto) 0.1 0-0.2 10 ^3/uL Nucleated Red Blood Cells 0.1 % Sodium Level 142 136-145 mmol/L Potassium Level 4.0 3.5-5.1 mmol/L Chloride Level 107 98-107 mmol/L Carbon Dioxide Level 26 20-31 mmol/L Anion Gap 9 5-15 Blood Urea Nitrogen 9 9-23 mg/dL Creatinine 1.00 0.550-1.02 mg/dL Glomerular Filtration Rate Calc 71 >90 mL/min BUN/Creatinine Ratio 9.0 L 10.0-20.0 Serum Glucose 82 74-106 mg/dL Calcium Level 9.8 8.7-10.4 mg/dL Current Medications Medications (Trade) Dose Ordered Sig/Arleen Route Start Time Stop Time Status Last Admin Ketorolac Tromethamine (Toradol Injection) 15 mg ONCE ONCE IV 05/24/25 16:30 05/24/25 16:31 DC 05/24/25 16:38 Fentanyl Citrate 12.5 mcg ONCE ONCE IV 05/24/25 16:30 05/24/25 16:31 DC 05/24/25 16:38 Labetalol HCl (Labetalol HCl) 5 mg ONCE ONCE IV 05/24/25 16:30 05/24/25 16:31 DC 05/24/25 16:36 Time of 1ST Reevaluation: 17:22 Reevaluation 1ST: Unchanged Time of 2ND Reevaluation: 17:57 Reevaluation 2ND: Resolved Patient Education/Counseling: Diagnosis, Treatment, Prognosis, Need For Follow Up Family Education/Counseling: No Family Present Comments pt reportedly was not taking her BP meds, due to nausea. her right facial pain is consistent with TGN, which may be due to her diabetes. she does not have temporal pain, visual changes, or temporal cords. ct does not show any acute findings. her cardiac wrokup is also normal, with no signs of anginal equivalent. she is stable for discharge Additional Information Reviewed patient's previous visit(s): 12/23/24 for chest pain, 06/16/24 for chest pain The following tests were ordered, and results were reviewed by me: Additional information was gathered from interviewing the following independent historian: None I reviewed and agreed with the following test results read by other provider: I discussed treatments and results with medical personnel and: Patient Comprehensive systems review obtained and negative except for what is stated in the HPI. SEPSIS Sepsis Screen Physician Orders Saline Lock (05/24/25 16:27) Continuous Ekg Monitoring 08,12,16,20,00,04 (05/24/25 16:25) Electrocardigram (05/24/25 16:25) Chest Portable (05/24/25 16:25) Head Without Contrast (05/24/25 16:25) Troponin-I Hs (05/24/25 17:25) Troponin-I Hs (05/24/25 19:25) Electrocardigram (05/24/25 17:25) Electrocardigram (05/24/25 19:25) Vital Signs Date Time Temp Pulse Resp B/P (MAP) Pulse Ox O2 Delivery O2 Flow Rate FiO2 05/24/25 17:16 67 20 95 Nasal Cannula 2.0 05/24/25 17:16 98.2 67 20 118/59 (78) 95 98.2 05/24/25 17:16 67 118/59 05/24/25 16:41 109 22 97 Room Air* 0 21 05/24/25 16:38 211/48 05/24/25 16:36 98.1 109 16 211/148 (169) 94 98.1 05/24/25 16:36 109 211/48 Laboratory Tests Test 05/24/25 16:35 White Blood Count 8.0 10^3/uL (4.4-10.8) Medications Medications Dose Ordered Sig/Arleen Route Start Time Stop Time Status Last Admin Dose Admin Fentanyl Citrate 12.5 mcg ONCE ONCE IV 05/24/25 16:30 05/24/25 16:31 DC 05/24/25 16:38 Ketorolac Tromethamine 15 mg ONCE ONCE IV 05/24/25 16:30 05/24/25 16:31 DC 05/24/25 16:38 Labetalol HCl 5 mg ONCE ONCE IV 05/24/25 16:30 05/24/25 16:31 DC 05/24/25 16:36 Departure 1 Departure Time of Disposition: 17:59 Impression: Primary Impression: Trigeminal neuralgia Additional Impressions: Poorly controlled blood pressure Noncompliance Disposition: HOME / SELF CARE / HOMELESS Condition: Good e-Prescriptions Gabapentin (Gabapentin) 300 Mg Cap 1 CAP PO TID, #90 CAP 5 Refills Prov: AARON NUNES MD 05/24/25 Ondansetron Odt 4MG Tab (ZOFRAN PO) 4 Mg Tb 4 MG PO q6 PRN for 2 Days, #8 TAB ODT TAB-DISSOLVE IN MOUTH, THEN SWALLOW Prov: AARON NUNES MD 05/24/25 Discharged With: Self Critical Care Note Critical Care Time?: Yes (55 min-critical care time only) Critical care comment: due to concerns for patient's condition deteriorating, the care required my highest level of attention and readiness to intervene. i assessed the patient's condition, ordered the proper tests and treatments, reassessed for response and reviewed the results. i communicated with medical personnel and formulated a plan of care. total critical care time does not include any procedures Stability Stability form required: No Heart Score Heart Score: Heart Score Response (Comments) Value History N/A 0 EKG N/A 0 Age N/A 0 Risk Factors N/A 0 Troponin N/A 0 Total 0 I personally scribed for AARON NUNES MD ([email or web address]) on 05/24/25 at 16:26. [place] ctronically submitted by Teja Cintron ([email or web address]). AARON NUNES MD May 24, 2025 16:26
[2025-05-24] MEDS: LABETALOL HCL 20 MG/4 ML VL IV ONE (16:36)
[2025-05-24] MEDS: KETOROLAC TROMETH 30 MG/ML 1ML VIAL IV ONE (16:38)
[2025-05-24] MEDS: fentaNYL CITRATE 100 MCG/2 ML VL IV ONE (16:38)
[2025-05-24 16:41] VITALS: PULSE 109; RESP 22; O2SAT 97
[2025-05-24 16:46] LABS: Hematocrit 38.8 % (36.0-46.0); Hemoglobin 13.2 g/dL (12.2-16.2); Mean Corpuscular Hemoglobin 29.0 pg (28.0-32.0); Mean Corpuscular Volume 85.4 fL (80.0-100.0); Nucleated Red Blood Cells % 0.1 %
[2025-05-24 16:53] LABS: Chloride 107 mmol/L (98-107); Potassium 4.0 mmol/L (3.5-5.1); Sodium 142 mmol/L (136-145)
[2025-05-24 16:54] LABS: Anion Gap 9 (5-15); Carbon Dioxide 26 mmol/L (20-31)
[2025-05-24 16:55] LABS: Calcium 9.8 mg/dL (8.7-10.4)
[2025-05-24 16:59] LABS: BUN/Creatinine Ratio 9.0 (10.0-20.0); Glucose 82 mg/dL (74-106)
[2025-05-24 17:04] LABS: Blood Urea Nitrogen 9 mg/dL (9-23)
[2025-05-24 17:16] VITALS: BP 118/59; PULSE 67; RESP 20; TEMP 98.2; O2SAT 95
--- NOTE | 2025-05-24 17:36 | DVH ---
Exam: CT HEAD WITHOUT CONTRAST History: headache Technique: [address] images through the posterior fossa and the supratentorial compart ment were acquired without contrast and imaged using soft tissue and bone algorithms. RADIATION DOSE: DLP 1252.06 mGy.cm; CTDI vol 63.48 mGy. Comparison: CT HEAD WITHOUT CONTRAST on DOS: 12/23/24, CT HEAD WITHOUT CONTRAST on DOS: 06/17/24, CT HEA D WITHOUT CONTRAST on DOS: 09/02/23 Findings: There is no evidence of an intracranial hemorrhage, acute large vessel infarct, mass effect, or midli ne shift. The calvarium, orbits, paranasal sinuses, sella, middle ears, and mastoids are unremarkable. The superficial soft tissues are within normal limits. Impression: 1. No acute intracranial abnormality.
[2025-05-24] MEDS ORDERED: GABA-1250 PO (18:01)
[2025-05-24] MEDS ORDERED: ZOFR4T PO (18:01)
--- NOTE | 2025-05-24 18:24 | DVH ---
EXAM: XY CHEST PORTABLE TECHNIQUE: Single frontal chest radiograph CLINICAL HISTORY: htn COMPARISON: XY CHEST PORTABLE on DOS: 12/23/24, XY CHEST XRAY 1 VIEW on DOS: 06/16/24, XY CHEST XRAY 1 V IEW on DOS: 09/02/23 Findings/Impression: Frontal chest radiograph demonstrates no acute osseous or superficial soft tissue abnormalities. The trachea is midline. The cardiac silhouette and mediastinum are within normal limits. No pneumothorax, pleural effusions, or consolidations.
== END 2025-05-24 18:23 | disposition home or self-care (01) ==
LOC: ER 15:56
DX: G50.0 Trigeminal neuralgia (principal); E11.9 Type 2 diabetes mellitus without complications; I10 Essential (primary) hypertension; F41.9 Anxiety disorder, unspecified; Z91.199 Patient's noncompliance with other medical treatment and regimen due to unspecified reason; Z79.899 Other long term (current) drug therapy; Z88.1 Allergy status to other antibiotic agents; Z88.2 Allergy status to sulfonamides; Z90.49 Acquired absence of other specified parts of digestive tract; Z90.710 Acquired absence of both cervix and uterus
CPT/HCPCS: 36415; 70450; 71045; 80048; 84484; 85025; 96374; 96375; 99285; J1885; J3010

== ENCOUNTER 2025-08-27 15:56 | Inpatient (IN) | payer MEDICAID ==
[~2025-08-27] VITALS: Ht 165.1 cm; Wt 96.4 kg
[~2025-08-27 15:56] MED LIST changes: +GABA-1250 PO
[2025-08-27] MEDS: SODIUM CHLORIDE 0.9% 1,000 ML IV ONE ×2 (16:30→23:30)
--- NOTE | 2025-08-27 16:37 | ED.PDOC ---
GI ASSESSMENT HPI Comments This is a 44 year old female presenting to the ED with chief complaint of blood in stool. Patient reports that she has been experiencing intermittent bright red blood in stool for the past 4 days with associated nausea, vomiting, sharp epigastric abdominal pain, and mild hematemesis since yesterday. Patient relays that she called her PCP and was advised to come into the ED for further evaluation. Patient denies any fever, melena, chills, chest pain, SOB, dizziness, or headache. Chief Complaint: GI Bleed Time Seen by MD: 16:35 Primary Care Provider: UNKNOWN Reviewed Notes: Nurses Notes, Medications, Allergies Allergies: Coded Allergies: Sulfamethoxazole w/Trimethoprim (Verified Allergy, Intermediate, N/V, I TCHING, FEEL HOT, 02/16/23) Sulfa Antibiotics (Verified Allergy, Unknown, HIVES, 08/18/24) Home Meds Active Scripts Gabapentin (Gabapentin) 300 Mg Cap, 1 CAP PO TID, #90 CAP 5 Refills Prov:AARON NUNES MD 05/24/25 Ondansetron Odt 4MG Tab (ZOFRAN PO) 4 Mg Tb, 4 MG PO q6 PRN for 2 Days, #8 TAB ODT TAB-DISSOLVE IN MOUTH, THEN SWALLOW Prov:AARON NUNES MD 05/24/25 Reported Medications Atorvastatin Calcium (Lipitor) 10 Mg Tab, 1 TAB PO QAM, #90 TAB 1 Refill 08/18/24 Ipratropium [place] Hfa (Atrovent Hfa) 17 Mcg Aer, 1 PUFF INH QID for COPD, #12.9 GRAMS 5 Refills 08/18/24 Patients Own Medication (PATIENTS OWN MEDICATION) ., 1 QID for IPTROPIUM SOLUTION PTS OWN MED-OBTAIN FROM PT AND SEND TO RX DRUG: FREQ: RX# EXP: DATE DISP: TECH: RPH: 08/18/24 Cyanocobalamin (Vitamin B12) 1,000 Mcg Tab, 5000 MCG PO DAILY, TAB 08/18/24 Alpha Tocopheryl Acid Succinat (VITAMIN E) 100 Unit Tab, 100 UNIT PO DAILY, TAB 08/18/24 Ascorbic Acid (VITAMIN C TABLET) 500 Mg Tb, 1 TAB PO DAILY, #30 TAB 3 Refills 08/18/24 Magnesium Oxide (MAGNESIUM OXIDE) 400 Mg Tab, 1 TAB PO DAILY, #30 TAB 5 Refills 08/18/24 Atogepant (Qulipta) 60 Mg Tab, 60 MG PO DAILY for MIGRAINE HEADACHES, TAB 08/18/24 Meclizine Hcl (Meclizine Hcl) 25 Mg Tab, 25 MG PO TIDP PRN for DIZZINESS for 30 Days, MG 08/18/24 Furosemide (Lasix) 20 Mg Tb, 1 TAB PO QAM for EDEMA, #90 TAB 1 Refill 08/18/24 Ondansetron Odt 4MG Tab (ZOFRAN PO) 4 Mg Tb, 8 MG PO QIDP for NAUSEA/VOMITING, TAB ODT TAB-DISSOLVE IN MOUTH, THEN SWALLOW 08/18/24 Multiple Vitamin (Multivitamins) Tab, 1 TAB PO DAILY, #90 TAB 3 Refills 08/18/24 Multiple Vitamins W/ Minerals (Hair/Skin/Nails) 1 Cap Cap, 2 GUM PO QAM for SUPPLEMENT, CAP 08/18/24 Sucralfate (CARAFATE) 1 Gm Tab, 1 GM PO QID for GERD, TAB 08/18/24 Orlistat (Xenical) 120 Mg Cap, 120 MG PO TID for WEIGHT LOSS, CAP 08/18/24 Rimegepant Sulfate (Nurtec) 75 Mg Tab, 75 MG PO DAILY for HEADACHE, TAB 08/18/24 Albuterol Sulfate (Albuterol Sulfate) 0.083 % Neb, 1 VIAL NEB QID PRN for SOB or WHEEZING 02/16/23 Albuterol Sulfate (Albuterol Sulfate Hfa) 108 Mcg/Act Aer, 1 PUFF IN QID PRN for SHORTNESS OF BREATH 02/16/23 Gabapentin (Neurontin) 300 Mg Cap, 2 CAP PO TID for FIBROMYALGIA 02/16/23 Aspirin (Aspirin) 81 Mg Tab, 1 TAB PO DAILY for HEART ATTACK PREVENTION 02/16/23 Ferrous Sulfate (Ferrous Sulfate) 325 Mg Tab, 1 TAB PO DAILY for ANEMIA 02/16/23 Omeprazole (Omeprazole Dr) 40 Mg Cap, 1 CAP PO QAM for GERD 02/16/23 Montelukast Sodium (Singulair) 10 Mg Tab, 1 TAB PO DAILY for ASTHMA 02/16/23 Buspirone Hcl (Buspirone Hcl) 30 Mg Tab, 1 TAB PO BID for DEPRESSION 02/16/23 Hydroxyzine Hcl (Hydroxyzine Hcl) 50 Mg Tab, 4 TAB PO TID for ANXIETY 02/16/23 Pantoprazole Sodium Sesquihydr (Protonix) 40 Mg Tab, 1 TAB PO QPM for GERD 02/16/23 Aripiprazole (Abilify) 15 Mg Tab, 1 TAB PO DAILY for OCD 02/16/23 Bupropion Hcl (Wellbutrin Sr) 200 Mg Tab, 1 TAB PO BID for BIPOLAR DISORDER 02/16/23 Trazodone HCl (Trazodone Hydrochloride) 300 Mg Tab, 1 TAB PO HS for INSOMNIA 02/16/23 Fenofibrate (Tricor) 145 Mg Tab, 1 TAB PO QAM for HYPERLIPIDEMIA 02/16/23 Hydrocodone-Acetaminophen (Hydrocodone Bitartrate/AC 5-325 mg) 1 Tab Tab, 1 TAB PO TID PRN for MODERATE PAIN (4-6 PAIN SCALE) 02/16/23 Fluoxetine Hcl (Fluoxetine Hcl) 20 Mg Cap, 4 CAP PO QAM for BPD 02/16/23 Cholecalciferol (Vitamin D3 1.25 mg (53458 Ut)) 1 Cap Cap, 1 CAP PO QAM for VIT D DEFICIENCY 02/16/23 Metoprolol Succinate (Metoprolol Succinate Er) 25 Mg Tab, 1 TAB PO QAM for HYPERTENSION 02/16/23 Information Source: Patient Mode of Arrival: Ambulatory Timing: Days Duration: Since onset Prehospital treatment: None Quality: Sharp Vomitus: Watery, Streaking Blood Stool: Blood Streaked Severity: Moderate Recent: None Recent Hx of: None Pain Location: RLQ Modifying Factors: Nothing Associated sign and symptoms: Nausea, Vomiting, Hematemesis, Abdominal Pain, B lood in Stool Past Medical History PAST MEDICAL HISTORY: Anxiety, Asthma, COPD, DM, High Lipids, HTN, [place] Surgical History: Cholecystectomy, Hysterectomy DISC SANDER History: Denies all DISC SANDER Hx, No Pertinent DISC SANDER History Family History Family History: Reviewed,noncontributory to illness, Unknown Social History Smoker: Non-Smoker Alcohol: Denies ETOH Use Drugs: Marijuana Lives In: Home Constitutional: denies: chills, diaphoresis, fatigue, fever, malaise, sweats, weakness, others EENTM: denies: blurred vision, double vision, ear bleeding, ear discharge, ear drainage, ear pain, ear ringing, eye pain, eye redness, hearing loss, mouth pain, mouth swelling, nasal discharge, nose bleeding, nose congestion, nose pain, photophobia, tearing, throat pain, throat swelling, voice changes, others Respiratory: denies: cough, hemoptysis, orthopnea, SOB at rest, shortness of breath, SOB with excertion, stridor, wheezing, others Cardiovascular: denies: chest pain, dizzy spells, diaphoresis, Dyspnea on exertion, edema, irregular heart beat, left arm pain, lightheadedness, palpitations, PND, syncope, others Gastrointestinal: reports: abdominal pain, blood streaked bowels, hematemesis, nausea, vomiting; denies: abdomen distended, constipated, diarrhea, dysphagia, difficulty swallowing, melena, poor appetite, poor fluid intake, rectal bleeding, rectal pain, others Genitourinary: denies: abnormal vagina bleeding, burning, dyspareunia, dysuria, flank pain, frequency, hematuria, incontinence, pain, , vagina discharge, urgency, others Neurological: denies: dizziness, fainting, headache, left sided numbness, left sided weakness, numbness, paresthesia, pre-existing deficit, right sided numbness, right sided weakness, seizure, speech problems, tingling, tremors, weakness, others Musculoskeletal: denies: back pain, gout, joint pain, joint swelling, muscle pain, muscle stiffness, neck pain, others Integumetry: denies: bruises, change in color, change in hair/nails, dryness, laceration, lesions, lumps, rash, wounds, others Allergic/Immunocompromised: denies: Difficulty Healing, Frequent Infections, Hives, Itching, others Hematologic/Lymphatic: denies: anemia, blood clots, easy bleeding, easy bruising, swollen glands, others Endocrine: denies: excessive hunger, excessive sweating, excessive thirst, excessive urination, flushing, intolerance to cold, intolerance to heat, unexplained weight gain, unexplained weight loss, others Psychiatric: denies: anxiety, bipolar disorder, depression, hopeless, panic disorder, schizophrenia, sleepless, suicidal, others All Other Systems: Reviewed and Negative Physical Exam General Appearance: No Apparent Distress, Normal HEENT: Normal ENT Inspection, Pharynx Normal, TMs Normal Neck: Full Range of Motion, Non-Tender, Normal, Normal Inspection Respiratory: Chest Non-Tender, Lungs Clear, No Accessory Muscle Use, No Respiratory Distress, Normal Breath Sounds Cardiovascular: No Edema, No JVD, No Murmur, No Gallop, Normal Peripheral Pulses, Regular Rate/Rhythm Breast Exam: Deferred Gastrointestinal: No Organomegaly, Non Tender, No Pulsatile Mass, Normal Bowel Sounds, Soft Genitalia: Deferred Pelvic: Deferred Rectal: Deferred Extremities: No calf tenderness, Normal capillary refill, Normal inspection, Normal range of motion, Non-tender, No pedal edema Musculoskeletal : Apperance: Normal Neurologic: Alert, clothing busheler II-XII nml as Tested, No Motor Deficits, Normal Affect, Normal Mood, No Sensory Deficits Cerebellar Function: Normal Reflexes: Normal Skin: Dry, Normal Color, Warm Lymphatic: No Adenopathy Was a procedure done? Was a procedure done?: No GI differential Dx Differential Diagnosis: Bowel Obstruction, Cholangitis, Cholecystitis, Constipation, Diverticular disease, Ectopic , Esophageal rupture, Esophagitis, Gastritis/PUD, Gastroenteritis, GI hemorrhage, Hernia, Hepatitis, Inflammatory BD, Ischemic Bowel, Pancreatitis, Porphyria, UTI, Urolithiasis, Dehydration, Electrolyte Imbalance, , Bacterial, Parasitic, Viral, Hypovolemia, Impaction, Malnutrition, Ischemic Bowel, Mass, Anemia, Esophageal Varicies, Stress Ulcer X-Ray, Labs, Meds, VS Vital Signs Date Time Temp Pulse Resp B/P (MAP) Pulse Ox O2 Delivery O2 Flow Rate FiO2 08/27/25 19:42 132/84 08/27/25 19:28 100 Nasal Cannula* 3 32 08/27/25 19:28 97.6 89 18 132/84 (100) 100 97.6 08/27/25 16:51 85 16 94 Nasal Cannula 08/27/25 16:51 98.2 85 16 138/83 (101) 94 98.2 08/27/25 15:57 98.8 96 18 114/73 96 98.8 Lab Test 08/27/25 17:59 08/27/25 16:54 Range/Units Urine Test Negative Negative White Blood Count 6.1 4.4-10.8 10^3/uL Red Blood Count 4.77 4.0-5.20 10^6/uL Hemoglobin 14.0 12.2-16.2 g/dL Hematocrit 40.7 36.0-46.0 % Mean Corpuscular Volume 85.3 80.0-100.0 fL Mean Corpuscular Hemoglobin 29.4 28.0-32.0 pg Mean Corpuscular Hemoglobin Concent 34.5 32.0-36.0 g/dL Red Cell Distribution Width 14.1 11.8-14.3 % Platelet Count 179 140-450 10^3/uL Mean Platelet Volume 8.1 6.9-10.8 fL Neutrophils (%) (Auto) 50.7 37.0-80.0 % Lymphocytes (%) (Auto) 39.8 10.0-50.0 % Monocytes (%) (Auto) 5.8 0.0-12.0 % Eosinophils (%) (Auto) 2.5 0.0-7.0 % Basophils (%) (Auto) 1.2 0.0-2.0 % Neutrophils # (Auto) 3.1 1.6-8.6 10 ^3/uL Lymphocytes # (Auto) 2.4 0.4-5.4 10 ^3/uL Monocytes # (Auto) 0.4 0-1.3 10 ^3/uL Eosinophils # (Auto) 0.2 0-0.8 10 ^3/uL Basophils # (Auto) 0.1 0-0.2 10 ^3/uL Nucleated Red Blood Cells 0.1 % Sodium Level 140 136-145 mmol/L Potassium Level 4.0 3.5-5.1 mmol/L Chloride Level 106 98-107 mmol/L Carbon Dioxide Level 24 20-31 mmol/L Anion Gap 10 5-15 Blood Urea Nitrogen 7 L 9-23 mg/dL Creatinine 0.67 0.550-1.02 mg/dL Glomerular Filtration Rate Calc 110 >90 mL/min BUN/Creatinine Ratio 10.4 10.0-20.0 Serum Glucose 82 74-106 mg/dL Calcium Level 9.5 8.7-10.4 mg/dL Total Bilirubin 0.2 0.2-1.0 mg/dL Aspartate Amino Transferase (AST) 24 13-40 U/L Alanine Aminotransferase (ALT) 26 7-40 U/L Alkaline Phosphatase 97 46-116 U/L Total Protein 7.6 5.7-8.2 g/dL Albumin 4.9 H 3.2-4.8 g/dL Current Medications Medications (Trade) Dose Ordered Sig/Arleen Route Start Time Stop Time Status Last Admin Ondansetron HCl (Zofran) 4 mg ONCE ONCE IV 08/27/25 16:30 08/27/25 16:31 DC 08/27/25 19:41 Fentanyl Citrate 12.5 mcg ONCE ONCE IV 08/27/25 19:45 08/27/25 19:46 DC 08/27/25 19:42 Time of 1ST Reevaluation: 17:33 Reevaluation 1ST: Unchanged Time of 2ND Reevaluation: 21:59 Reevaluation 2ND: Unchanged Patient Education/Counseling: Diagnosis, Treatment Family Education/Counseling: No Family Present Comments This is a patient who has a history of gastric bypass and gastritis. She takes Carafate every day. She presents to the emergency room with epigastric pain. The CAT scan does not show anything acute. She does not have bowel obstruction and no complications due to the gastric bypass. Her labs were normal however patient continues to have symptoms. She reportedly had hematemesis and melena at home but she has not had any episodes here. This may likely be a flare-up of her gastritis patient will be admitted to the hospital for IV proton pump inhibitor, and monitoring and treatment of her pain. Additional Information Reviewed patient's previous visit(s): 12/23/24 for chest pain, 06/16/24 for chest pain, 09/02/23 for chest pain The following tests were ordered, and results were reviewed by me: CBC, CMP, Preg urine Additional information was gathered from interviewing the following independent historian: None I reviewed and agreed with the following test results read by other provider: CT Abd/Pel I discussed treatments and results with medical personnel and: PATIENT Comprehensive systems review obtained and negative except for what is stated in the HPI. SEPSIS Sepsis Screen Date sepsis recognized/suspect: Aug 27, 2025 Time Sepsis recognized/suspect: 1516 Recent Procedure: No On Antibiotic Therapy: No Respiratory Rate >20: No Heart Rate >90: Yes Temp<36 C (96.8 F) or >38.3 C: No SBP <90 or MAP <65 mmHG: No New Acute Mental Status Change: No Is the patient on CPAP, BIPAP,: No Physician Orders Sodium Chloride 0.9% (08/27/25 16:30) Ct Ab Pel Wo Con-No Oral Or Iv (08/27/25 16:29) Vital Signs Date Time Temp Pulse Resp B/P (MAP) Pulse Ox O2 Delivery O2 Flow Rate FiO2 08/27/25 19:42 132/84 08/27/25 19:28 100 Nasal Cannula* 3 32 08/27/25 19:28 97.6 89 18 132/84 (100) 100 97.6 08/27/25 16:51 85 16 94 Nasal Cannula 08/27/25 16:51 98.2 85 16 138/83 (101) 94 98.2 08/27/25 15:57 98.8 96 18 114/73 96 98.8 Laboratory Tests Test 08/27/25 16:54 White Blood Count 6.1 10^3/uL (4.4-10.8) Medications Medications Dose Ordered Sig/Arleen Route Start Time Stop Time Status Last Admin Dose Admin Fentanyl Citrate 12.5 mcg ONCE ONCE IV 08/27/25 19:45 08/27/25 19:46 DC 08/27/25 19:42 Ondansetron HCl 4 mg ONCE ONCE IV 08/27/25 16:30 08/27/25 16:31 DC 08/27/25 19:41 Departure 1 Departure Time of Disposition: 21:59 Impression: Primary Impression: Gastritis Qualified Codes: K29.70 - Gastritis, unspecified, without bleeding Disposition: ADMITTED INPATIENT Admit to: Med Surg Condition: Stable Discharged With: Self Critical Care Note Critical Care Time?: No Stability Stability form required: No Heart Score Heart Score: Heart Score Response (Comments) Value History N/A 0 EKG N/A 0 Age N/A 0 Risk Factors N/A 0 Troponin N/A 0 Total 0 I personally scribed for AARON NUNES MD ([email or web address]) on 08/27/25 at 16:37. Electronically submitted by Teja Cintron ([email or web address]). AARON NUNES MD Aug 27, 2025 16:37
[2025-08-27 17:25] LABS: Hematocrit 40.7 % (36.0-46.0); Hemoglobin 14.0 g/dL (12.2-16.2); Mean Corpuscular Hemoglobin 29.4 pg (28.0-32.0); Mean Corpuscular Volume 85.3 fL (80.0-100.0); Nucleated Red Blood Cells % 0.1 %
[2025-08-27 17:42] LABS: Alanine Aminotransferase 26 U/L (7-40); Alkaline Phosphatase 97 U/L (46-116); Anion Gap 10 (5-15); BUN/Creatinine Ratio 10.4 (10.0-20.0); Calcium 9.5 mg/dL (8.7-10.4); Carbon Dioxide 24 mmol/L (20-31); Chloride 106 mmol/L (98-107); Glucose 82 mg/dL (74-106); Potassium 4.0 mmol/L (3.5-5.1); Sodium 140 mmol/L (136-145); Total Protein 7.6 g/dL (5.7-8.2)
[2025-08-27 18:26] LABS: Albumin 4.9 g/dL (3.2-4.8); Bilirubin, Total 0.2 mg/dL (0.2-1.0); Blood Urea Nitrogen 7 mg/dL (9-23)
[2025-08-27 19:28] VITALS: O2SAT 100
[2025-08-27] MEDS: ONDANSETRON HCL 4 MG/2 ML VIAL IV ONE (19:41)
[2025-08-27] MEDS: fentaNYL CITRATE 100 MCG/2 ML VL IV ONE (19:42)
--- NOTE | 2025-08-27 20:01 | DVH ---
EXAM: CT CT AB PEL WO CON-NO ORAL OR IV INDICATION: abdominal pain TECHNIQUE: Volumetric multidetector CT images of the abdomen and pelvis were obtained without contras t. All CT scans at this facility use dose modulation, iterative reconstruction, and/or weight based d osing when appropriate to reduce radiation dose to as low as reasonably achievable. COMPARISON: MR PELVIS WO/W - FEMALE on DOS: 05/22/25 FINDINGS: [LOWER CHEST]: The partially visualized lung bases are clear without a pleural effusion. The cardiac size is normal without pericardial effusion. [LIVER]: Normal hepatic size without suspicious focal lesion. [GALLBLADDER AND BILIARY TREE]: Surgically absent. [SPLEEN]: Unremarkable. [PANCREAS]: Unremarkable. [ADRENAL GLANDS]: Unremarkable [KIDNEYS]: No hydronephrosis. No nephroureterolithiasis. [BLADDER]: Unremarkable for the degree distention. [REPRODUCTIVE ORGANS]: Hysterectomy. Right ovarian cysts with marginal calcification. [BOWEL/MESENTERY]: Postsurgical changes related to gastric bypass. No CT evidence of bowel obstructio n. [ASCITES]: Absent [LYMPHADENOPATHY]: No pathologically enlarged lymph nodes by CT size criteria [VASCULATURE]: No aneurysmal dilatation. [ABDOMINAL WALL]: Unremarkable. [MUSCULOSKELETAL]: No acute fracture or aggressive focal osseous lesion. IMPRESSION: 1. No CT evidence of an acute abdominal/pelvic process.
--- NOTE | 2025-08-27 22:50 | DVHHP2 ---
History of Present Illness Reason for Visit: GI bleed History of Present Illness 44-year-old female presents for evaluation of GI bleed. Patient reports a three day history of noticing bright red blood in her stool then turning dark then today she started vomiting blood as well. She reports having a colonoscopy th ree weeks ago. Also reports some abdominal discomfort on the right side of her abdomen. No fever or chills. Past Medical History Hypertension, diabetes mellitus, COPD, mi Past Surgical History Hysterectomy, cholecystectomy Family History Noncontributory Smoke: No ALCOHOL: none Drugs: Marijuana Lives: with Family Review of Systems Review of Systems Review of systems are currently negative otherwise addressed in HPI. Allergies: Coded Allergies: Sulfamethoxazole w/Trimethoprim (Verified Allergy, Intermediate, N/V, ITCHING, FEEL HOT, 02/16/23) Sulfa Antibiotics (Verified Allergy, Unknown, HIVES, 08/18/24) Exam Vital Signs Vital Signs Date Time Temp Pulse Resp B/P (MAP) Pulse Ox O2 Delivery O2 Flow Rate FiO2 08/27/25 19:42 132/84 08/27/25 19:28 100 Nasal Cannula* 3 32 08/27/25 19:28 97.6 89 18 97.6 Exam Gen: 44-year-old female in no apparent distress. Skin: Warm, dry, normal color and texture, no rash. HEENT: Normocephalic atraumatic, mucous membranes moist and pink. Neck: Cervical and supraclavicular nodes normal without enlargement, trachea is midline, thyroid gland is normal without masses. Pulmonary: Clear to auscultation and percussion bilaterally. Cardiac: Regular rate and rhythm. No murmur Abdomen: Soft, nontender, nondistended, bowel sounds present all 4 quadrants, no guarding, no rigidity, no organomegaly. Extremities: No cyanosis, clubbing, no edema Neuro: Cranial nerves II through XII grossly intact, normal affect and speech, no focal motor deficits. Labs/Xrays ORDERING PHYSICIAN: AARON NUNES MD PROCEDURE(s): ABPL - CT AB PEL WO CON-NO ORAL OR IV REASON: abdominal pain ORDER NUMBER(s): [id number], ACCESSION NUMBER(s): [id number] EXAM: CT CT AB PEL WO CON-NO ORAL OR IV INDICATION: abdominal pain TECHNIQUE: Volumetric multidetector CT images of the abdomen and pelvis were obtained without contrast. All CT scans at this facility use dose modulation, iterative reconstruction, and/or weight based dosing when appropriate to reduce radiation dose to as low as reasonably achievable. COMPARISON: MR PELVIS WO/W - FEMALE on DOS: 05/22/25 FINDINGS: [LOWER CHEST]: The partially visualized lung bases are clear without a pleural effusion. The cardiac size is normal without pericardial effusion. [LIVER]: Normal hepatic size without suspicious focal lesion. [GALLBLADDER AND BILIARY TREE]: Surgically absent. [SPLEEN]: Unremarkable. [PANCREAS]: Unremarkable. [ADRENAL GLANDS]: Unremarkable [KIDNEYS]: No hydronephrosis. No nephroureterolithiasis. [BLADDER]: Unremarkable for the degree distention. [REPRODUCTIVE ORGANS]: Hysterectomy. Right ovarian cysts with marginal calcification. [BOWEL/MESENTERY]: Postsurgical changes related to gastric bypass. No CT evidence of bowel obstruction. [ASCITES]: Absent [LYMPHADENOPATHY]: No pathologically enlarged lymph nodes by CT size criteria [VASCULATURE]: No aneurysmal dilatation. [ABDOMINAL WALL]: Unremarkable. [MUSCULOSKELETAL]: No acute fracture or aggressive focal osseous lesion. IMPRESSION: 1. No CT evidence of an acute abdominal/pelvic process. Labs Test 08/27/25 17:59 08/27/25 16:54 Range/Units Urine Test Negative Negative White Blood Count 6.1 4.4-10.8 10^3/uL Red Blood Count 4.77 4.0-5.20 10^6/uL Hemoglobin 14.0 12.2-16.2 g/dL Hematocrit 40.7 36.0-46.0 % Mean Corpuscular Volume 85.3 80.0-100.0 fL Mean Corpuscular Hemoglobin 29.4 28.0-32.0 pg Mean Corpuscular Hemoglobin Concent 34.5 32.0-36.0 g/dL Red Cell Distribution Width 14.1 11.8-14.3 % Platelet Count 179 140-450 10^3/uL Mean Platelet Volume 8.1 6.9-10.8 fL Neutrophils (%) (Auto) 50.7 37.0-80.0 % Lymphocytes (%) (Auto) 39.8 10.0-50.0 % Monocytes (%) (Auto) 5.8 0.0-12.0 % Eosinophils (%) (Auto) 2.5 0.0-7.0 % Basophils (%) (Auto) 1.2 0.0-2.0 % Neutrophils # (Auto) 3.1 1.6-8.6 10 ^3/uL Lymphocytes # (Auto) 2.4 0.4-5.4 10 ^3/uL Monocytes # (Auto) 0.4 0-1.3 10 ^3/uL Eosinophils # (Auto) 0.2 0-0.8 10 ^3/uL Basophils # (Auto) 0.1 0-0.2 10 ^3/uL Nucleated Red Blood Cells 0.1 % Sodium Level 140 136-145 mmol/L Potassium Level 4.0 3.5-5.1 mmol/L Chloride Level 106 98-107 mmol/L Carbon Dioxide Level 24 20-31 mmol/L Anion Gap 10 5-15 Blood Urea Nitrogen 7 L 9-23 mg/dL Creatinine 0.67 0.550-1.02 mg/dL Glomerular Filtration Rate Calc 110 >90 mL/min BUN/Creatinine Ratio 10.4 10.0-20.0 Serum Glucose 82 74-106 mg/dL Calcium Level 9.5 8.7-10.4 mg/dL Total Bilirubin 0.2 0.2-1.0 mg/dL Aspartate Amino Transferase (AST) 24 13-40 U/L Alanine Aminotransferase (ALT) 26 7-40 U/L Alkaline Phosphatase 97 46-116 U/L Total Protein 7.6 5.7-8.2 g/dL Albumin 4.9 H 3.2-4.8 g/dL SEPSIS Sepsis Screen Date sepsis recognized/suspect: Aug 27, 2025 Time Sepsis recognized/suspect: 1516 Recent Procedure: No On Antibiotic Therapy: No Respiratory Rate >20: No Heart Rate >90: Yes Temp<36 C (96.8 F) or >38.3 C: No SBP <90 or MAP <65 mmHG: No New Acute Mental Status Change: No Is the patient on CPAP, BIPAP,: No Physician Orders Sodium Chloride 0.9% (08/27/25 16:30) Ct Ab Pel Wo Con-No Oral Or Iv (08/27/25 16:29) Pantoprazole (Protonix) (08/28/25 10:00) Hemoglobin & Hematocrit (08/27/25 22:42) Basic Metabolic Panel (08/28/25 04:00) Stool Occult Blood (08/27/25 22:42) Gastric Occult Blood (08/27/25 22:42) NS (08/27/25 22:45) * Gi Dvh Corsetier (08/27/25 22:42) Admit (08/27/25 22:42) Ondansetron Hcl (Zofran) (08/27/25 22:45) Complete Blood Count (08/28/25 04:00) Npo (Nothing By Mouth) Diet (08/28/25 Breakfast) Condition: Stable (08/27/25 22:42) Bedrest With Bathroom Privileg (08/27/25 22:42) Morphine Sulfate Injection (08/27/25 22:45) Vital Signs Date Time Temp Pulse Resp B/P (MAP) Pulse Ox O2 Delivery O2 Flow Rate FiO2 08/27/25 19:42 132/84 08/27/25 19:28 100 Nasal Cannula* 3 32 08/27/25 19:28 97.6 89 18 132/84 (100) 100 97.6 08/27/25 16:51 85 16 94 Nasal Cannula 08/27/25 16:51 98.2 85 16 138/83 (101) 94 98.2 08/27/25 15:57 98.8 96 18 114/73 96 98.8 Laboratory Tests Test 08/27/25 16:54 White Blood Count 6.1 10^3/uL (4.4-10.8) Medications Medications Dose Ordered Sig/Arleen Route Start Time Stop Time Status Last Admin Dose Admin Fentanyl Citrate 12.5 mcg ONCE ONCE IV 08/27/25 19:45 08/27/25 19:46 DC 08/27/25 19:42 12.5 MCG Ondansetron HCl 4 mg ONCE ONCE IV 08/27/25 16:30 08/27/25 16:31 DC 08/27/25 19:41 4 MG Assessment/Plan Assessment/Plan Assessment GI bleed Abdominal pain Hypertension Plan Admit the patient to [facility] to the hospitalist GI consult NPO Maintenance IV fluids Repeat H&H Continue treatment per orders. Plan discussed with: Patient My Orders Orders - LUIGI IGNACIO Procedure Category Date Status Time Pantoprazole PHA 08/28/25 Transmitted (Protonix) 10:00 Hemoglobin & LAB 08/27/25 Transmitted Hematocrit 22:42 Basic Metabolic Panel LAB 08/28/25 Verified 04:00 Stool Occult Blood LAB 08/27/25 Transmitted 22:42 Gastric Occult Blood LAB 08/27/25 Transmitted 22:42 NS PHA 08/27/25 Transmitted 22:45 * Gi Dvh Corsetier CONS 08/27/25 Transmitted 22:42 Admit ADMIT 08/27/25 Transmitted 22:42 Ondansetron Hcl PHA 08/27/25 Transmitted (Zofran) 22:45 Complete Blood Count LAB 08/28/25 Verified 04:00 Npo (Nothing By DIET 08/28/25 Transmitted Mouth) Diet Breakfast Condition: Stable LESLYE 08/27/25 Transmitted 22:42 Bedrest With Bathroom LESLYE 08/27/25 Transmitted Privileg 22:42 Morphine Sulfate PHA 08/27/25 Transmitted Injection 22:45 Date of Service: Aug 27, 2025 Billing Provider: LUIGI IGNACIO Common Visit Codes: [id number] INP/OBS CARE (HIGH) LUIGI IGNACIO Aug 27, 2025 22:50
[2025-08-27] MEDS: MAALOX PLUS or MAALOX 30 ML PO ONE (23:23)
[2025-08-27] MEDS: MORPHINE SULFATE INJ 2 MG/ml SYRG IV PRN (23:34)
[2025-08-27] MEDS: PANTOPRAZOLE 40 MG/10 ML VIAL INJ IV ONE (23:34)
[2025-08-27] MEDS: ONDANSETRON HCL 4 MG/2 ML VIAL IV PRN (23:34)
[2025-08-27 23:36] LABS: Hematocrit 40.2 % (36.0-46.0); Hemoglobin 13.6 g/dL (12.2-16.2)
[2025-08-27] MEDS: MORPHINE SULFATE 4 MG/ML SYR/VIAL ONE (23:46)
[2025-08-28 04:19] LABS: Chloride 104 mmol/L (98-107); Potassium 4.1 mmol/L (3.5-5.1); Sodium 142 mmol/L (136-145)
[2025-08-28 04:20] LABS: Anion Gap 9 (5-15); Carbon Dioxide 29 mmol/L (20-31); Hematocrit 39.8 % (36.0-46.0); Hemoglobin 13.7 g/dL (12.2-16.2); Mean Corpuscular Hemoglobin 29.2 pg (28.0-32.0); Mean Corpuscular Volume 85.2 fL (80.0-100.0); Nucleated Red Blood Cells % 0.1 %
[2025-08-28 04:21] LABS: Calcium 9.4 mg/dL (8.7-10.4)
[2025-08-28 04:25] LABS: BUN/Creatinine Ratio 13.8 (10.0-20.0); Blood Urea Nitrogen 11 mg/dL (9-23); Glucose 101 mg/dL (74-106)
[2025-08-28] MEDS: MORPHINE SULFATE 4 MG/ML SYR/VIAL ONE (04:47)
[2025-08-28 07:14] VITALS: PULSE 97; RESP 13; O2SAT 99
[2025-08-28] MEDS: PANTOPRAZOLE 40 MG/10 ML VIAL INJ IV SCH (09:48)
[2025-08-28] MEDS: MORPHINE SULFATE 4 MG/ML SYR/VIAL IV PRN (10:38)
--- NOTE | 2025-08-28 13:39 | DVHINCON2 ---
GI Consult Consult Note G I consult note Date of Consultation: 08/28/2025 Chief Complaint: GI bleed Referring Physician: Luis MATTHEWS H&P: 44-year-old female seen in ER 11 for GI bleed. Patient is starting lower abdominal pain for the past four days which radiates to the epigastric area. Also having nausea and vomiting for the past two days and has small amount of red blood in her emesis. Patient admits to recent feeling of fullness with even sips of water or eating food. Status post gastric bypass three years ago with 90 lb weight loss. Patient has also noticed slight amount of red blood in her stool. Status post incomplete colonoscopy three weeks ago due to poor prep at gastro [facility]. Status post EGD 1-1/2 years ago diagnosed with PUD treated with Prilosec and Carafate Patient's sees Hematology Oncology at [facility], for ovarian mass, scheduled for surgery 09/04/2025. Has elevated levels of CA 19-9. And CA 125 within normal limits per patient Patient takes aspirin 81 mg every day which she has DC five days ago Past Medical History: Anxiety, Asthma, COPD, DM, High Lipids, HTN, [place] Past Surgical History: Cholecystectomy, Hysterectomy Social History: Smoker: Non-Smoker Alcohol: Denies ETOH Use Drugs: Marijuana Lives In: Home Family History: Noncontrast Review of Systems: Constitutional: no fever, chill, weight loss HEENT: no eye pain, no hearing loss, no oral lesion, no scleral icterus Heart: no chest pain, no chest pressure Lung: no cough, no dyspnea with exertion Abdomen: see HPI Physical exam: General: NAD, AAOX3 Chest: lung ramos clear to auscultation Heart: RRR, no murmur Abdomen: + epigastric and lower abdominal tenderness to palpation, +BS Labs: Labs Test 08/28/25 03:49 08/27/25 17:59 08/27/25 16:54 Range/Units White Blood Count 8.3 # 4.4-10.8 10^3/uL Red Blood Count 4.68 4.0-5.20 10^6/uL Hemoglobin 13.7 12.2-16.2 g/dL Hematocrit 39.8 36.0-46.0 % Mean Corpuscular Volume 85.2 80.0-100.0 fL Mean Corpuscular Hemoglobin 29.2 28.0-32.0 pg Mean Corpuscular Hemoglobin Concent 34.3 32.0-36.0 g/dL Red Cell Distribution Width 14.1 11.8-14.3 % Platelet Count 172 140-450 10^3/uL Mean Platelet Volume 8.2 6.9-10.8 fL Neutrophils (%) (Auto) 61.9 37.0-80.0 % Lymphocytes (%) (Auto) 28.2 10.0-50.0 % Monocytes (%) (Auto) 7.1 0.0-12.0 % Eosinophils (%) (Auto) 2.1 0.0-7.0 % Basophils (%) (Auto) 0.7 0.0-2.0 % Neutrophils # (Auto) 5.1 1.6-8.6 10 ^3/uL Lymphocytes # (Auto) 2.3 0.4-5.4 10 ^3/uL Monocytes # (Auto) 0.6 0-1.3 10 ^3/uL Eosinophils # (Auto) 0.2 0-0.8 10 ^3/uL Basophils # (Auto) 0.1 0-0.2 10 ^3/uL Nucleated Red Blood Cells 0.1 % Sodium Level 142 136-145 mmol/L Potassium Level 4.1 3.5-5.1 mmol/L Chloride Level 104 98-107 mmol/L Carbon Dioxide Level 29 20-31 mmol/L Anion Gap 9 5-15 Blood Urea Nitrogen 11 9-23 mg/dL Creatinine 0.80 0.550-1.02 mg/dL Glomerular Filtration Rate Calc 93 >90 mL/min BUN/Creatinine Ratio 13.8 10.0-20.0 Serum Glucose 101 74-106 mg/dL Calcium Level 9.4 8.7-10.4 mg/dL Urine Test Negative Negative Total Bilirubin 0.2 0.2-1.0 mg/dL Aspartate Amino Transferase (AST) 24 13-40 U/L Alanine Aminotransferase (ALT) 26 7-40 U/L Alkaline Phosphatase 97 46-116 U/L Total Protein 7.6 5.7-8.2 g/dL Albumin 4.9 H 3.2-4.8 g/dL Imaging: CT abdomen pelvis IMPRESSION: 1. No CT evidence of an acute abdominal/pelvic process. Assessment: GI bleed Abdominal pain Ovarian mass being seeing at [facility] Elevated 19-9 per patient Plan: Discussed with Dr. Morales - Pt will be scheduled for an EGD today 08/28/2025. Pt was informed of the risks (bleeding, infection, perforation, reaction to sedation medications and cardiopulmonary arrest) and benefit and is agreeable to undergo the procedures. Discussed plan with patient and RN Thank you for this consult Date of Service: Aug 28, 2025 Billing Provider: KARLENE MARTIN Common Visit Codes: CONSULT ONLY Consultation Codes: [id number] CONSULT <60MIN KARLENE MARTIN Aug 28, 2025 13:39
[2025-08-28] MEDS ORDERED: METOCLOPRAMIDE HCL 5MG/ml INJ 2ml VIAL ONE (14:39)
[2025-08-28] MEDS ORDERED: LIDOCAINE 2% (LOCAL ANESTH.) PF 5ml SDV ONE (14:39)
[2025-08-28] MEDS ORDERED: ONDANSETRON HCL 4 MG/2 ML VIAL ONE (14:39)
[2025-08-28] MEDS ORDERED: PROPOFOL 10 MG/ML 20 ML IV ONE ×2 (14:40→14:48)
[2025-08-28 14:50] VITALS: PULSE 89; RESP 16; O2SAT 96
--- NOTE | 2025-08-28 14:53 | DVHOP2 ---
Operative Report DATE OF OPERATION: 08/28/25 PROCEDURE: Upper Endoscopy with biopsy. PREOPERATIVE INDICATION: The patient is a 44 -year-old female undergoing endoscopy for GI bleed POSTOPERATIVE DIAGNOSES: 1. 1-2 cm sliding-type hiatal hernia with slightly irregular squamocolumnar junction with GE junction biopsies were obtained 2. Mild gastritis with a small gastric remnant with some superficial erosion, no fresh or old blood in the upper GI tract 3. Otherwise normal examination up to the efferent and afferent loop of the gastrojejunostomy, there was no anastomotic ulcer PROCEDURE PERFORMED BY: Maria Isabel Morales GI NURSE: Srini SCOPE: Olympus videoendoscope. ASA CLASS: 2 PREOPERATIVE MEDICATIONS: Mac sedation, Nino Nieves PROCEDURE IN DETAIL: After obtaining an informed consent, the patient was placed on left lateral decubitus position. The patient was then sedated with the above medications. A bite block was placed between her teeth. The endoscope was then passed through the oropharynx, into the esophagus, and through the stomach into the efferent and afferent loop of the gastrojejunostomy Both the efferent and afferent limbs were normal and the anastomosis appeared to be normal. There was no anastomotic ulcer Patient had a small gastric remnant with mild gastritis and a couple of superficial erosions. On retroflexion the fundus and cardia were normal. The endoscope was then withdrawn into the distal esophagus patient had a 1-2 cm sliding-type hiatal hernia with slightly irregular squamocolumnar junction GE junction biopsies were obtained. The remaining distal and proximal esophagus and oropharynx were unremarkable The endoscope was then withdrawn. The patient tolerated the procedure well without difficulty. COMPLICATIONS : None SPECIMENS: Small-bowel Biopsies Gastric biopsies GE junction biopsies DISPOSITION: Transfer back to the floor Stable PLAN: 1. Await for biopsy result 2. Will place pt on Protonix 40 mg p.o. daily 3. Resume GI soft diet advance as tolerated 4. Avoid aspirin NSAIDs smoking alcohol 5. Outpatient follow up with GI Services for elective screening colonoscopy if not previously done MARIA ISABEL MORALES MD Aug 28, 2025 14:53
[2025-08-28 15:00] VITALS: PULSE 83; RESP 14; O2SAT 97
--- NOTE | 2025-08-28 15:25 | DVHPN2 ---
Subjective Patient continues to have epigastric pain Reviewed: Care Plan, H&P, Labs, Medications Changes from previous H/P or p: No Changes General: Per HPI Objective Vitals Vital Signs Date Time Temp Pulse Resp B/P (MAP) Pulse Ox O2 Delivery O2 Flow Rate FiO2 08/28/25 13:00 98.4 81 12 110/66 (81) 97 98.4 08/28/25 07:14 Nasal Cannula* 3 32 General Appearance: Alert, Oriented X3, Cooperative, No acute distress HEENT: Atraumatic, PERRLA Cardiovascular: Normal S1, Normal S2 Abdomen: Normal bowel sounds, Soft, No tenderness, No hepatospenomegaly, No masses Genitourinary: No Apparent Abnormalities Musculoskeletal: Normal sensory function, Normal motor function Skin: Dry, Intact Psych/Mental Status: Mental status NL, Mood NL Medications Current Medications Medications Dose Ordered Sig/Arleen Route Start Time Stop Time Status Last Admin Dose Admin Pantoprazole Sodium 40 mg BID IV 08/28/25 10:00 08/28/25 09:48 40 MG Ondansetron HCl 4 mg Q4HP PRN IV 08/27/25 22:45 08/28/25 10:37 4 MG Morphine Sulfate 2 mg Q6HPRN PRN IV 08/28/25 10:45 08/28/25 10:38 2 MG Sucralfate 1 gm BID@0600,2200 PO 08/28/25 22:00 Laboratory Results Laboratory Tests 08/28/25 03:49 Chemistry Test 08/27/25 16:54 08/28/25 03:49 Albumin 4.9 g/dL (3.2-4.8) H Calcium Level 9.5 mg/dL (8.7-10.4) 9.4 mg/dL (8.7-10.4) Total Protein 7.6 g/dL (5.7-8.2) LFT Test 08/27/25 16:54 Alanine Aminotransferase (ALT) 26 U/L (7-40) Alkaline Phosphatase 97 U/L (46-116) Aspartate Amino Transferase (AST) 24 U/L (13-40) Total Bilirubin 0.2 mg/dL (0.2-1.0) Urinalysis Test 08/27/25 17:59 Urine Test Negative (Negative) Labs and/or images reviewed: Labs reviewed by me, Image(s) reviewed by me Assessment/Plan Assessment/Plan Impression: -rule out GI bleed -gastritis -obesity -schizophrenia -COPD -diabetes mellitus -hypertension Plan: -patient is status post EGD, results discussed with mat worker, Dr. Leighann Morales. -continue PPI, Carafate -advance diet -continue home medications -reassess for discharge in a.m. Total time spent with patient discussing and formulating plan of care: 35 minutes. This medical document was created using an electronic medical record system with [employer] dictation system. Although this document has been carefully reviewed, there may still be some phonetic and typographical errors. These areas are purely typographical due to imperfections of the software programs, and do not reflect any compromise in the patient's medical care. Plan discussed with: Patient, Other (RN) Date of Service: Aug 28, 2025 Billing Provider: KELVIN BERTRAND NP Common Visit Codes: [id number] INP/OBS CARE(HIGH) KELVIN BERTRAND NP Aug 28, 2025 15:25
[2025-08-28] MEDS ORDERED: DEXTROSE (50%) 50ML SYRG IV PRN (15:45)
[2025-08-28] MEDS ORDERED: ARIP15TA48 PO (15:48)
[2025-08-28] MEDS ORDERED: ATOR10TA52 PO (15:48)
[2025-08-28] MEDS ORDERED: FENO145T27 PO (15:48)
[2025-08-28] MEDS ORDERED: TRIA0.1O TOP (15:48)
[2025-08-28] MEDS ORDERED: IVAB5TAB2 PO (15:48)
[2025-08-28] MEDS ORDERED: BACL20TA PO (15:48)
[2025-08-28] MEDS ORDERED: CARB200T4 PO (15:48)
[2025-08-28] MEDS ORDERED: GLUC-149 XX (15:48)
[2025-08-28] MEDS ORDERED: FLUO40CA PO (15:48)
[2025-08-28] MEDS ORDERED: ESZO1TAB13 PO (15:48)
[2025-08-28] MEDS ORDERED: RIZA10TA22 PO (15:48)
[2025-08-28] MEDS ORDERED: GABA-339 PO (15:48)
[2025-08-28] MEDS ORDERED: MULT-1056 PO (15:48)
[2025-08-28] MEDS ORDERED: INSU1INJ19 SC (15:48)
[2025-08-28] MEDS ORDERED: SUCR1SUS26 PO (15:48)
[2025-08-28] MEDS ORDERED: FREM225I2 (16:13)
[2025-08-28 17:00] VITALS: BP 119/63; PULSE 84; RESP 20; TEMP 97.8; O2SAT 91
[2025-08-28] MEDS: InsuLIN REG 1unit/0.01ml Soln (100units/ml) SC SCH ×2 (17:00→21:02)
[2025-08-28] MEDS: HYDROcodone-ACET 5/325MG TAB PO PRN (17:13)
[2025-08-28] MEDS: ACCU-CHEK COMFORT CURVE STRIP VI SCH (17:21)
[2025-08-28 20:30] VITALS: PULSE 69; PULSE 72; RESP 18; O2SAT 98
[2025-08-28 21:00] VITALS: BP 116/73; PULSE 72; RESP 18; TEMP 98; O2SAT 98
[2025-08-28] MEDS: SUCRALFATE 1 GM/10 ML ORAL SUSP PO SCH (21:00)
[2025-08-29] VITALS (7 sets, daily range): BP systolic 98–169; BP diastolic 52–99; PULSE 58–95; RESP 18–20; TEMP 97.7–98.3; O2SAT 89–98
[2025-08-29] MEDS: TEMAZEPAM 15 MG CAP PO ONE
--- NOTE | 2025-08-29 10:22 | DVHDS2 ---
Discharge Summary Date of Admission Aug 27, 2025 at 22:42 Date of Discharge: Aug 29, 2025 Admitting Diagnosis GI bleed Labs/Diagnostic Data: Laboratory Results Test 08/29/25 05:39 08/28/25 03:49 08/27/25 17:59 08/27/25 16:54 POC Glucose 108 mg/dl (70-106) White Blood Count 8.3 10^3/uL (4.4-10.8) Red Blood Count 4.68 10^6/uL (4.0-5.20) Hemoglobin 13.7 g/dL (12.2-16.2) Hematocrit 39.8 % (36.0-46.0) Mean Corpuscular Volume 85.2 fL (80.0-100.0) Mean Corpuscular Hemoglobin 29.2 pg (28.0-32.0) Mean Corpuscular Hemoglobin Concent 34.3 g/dL (32.0-36.0) Red Cell Distribution Width 14.1 % (11.8-14.3) Platelet Count 172 10^3/uL (140-450) Mean Platelet Volume 8.2 fL (6.9-10.8) Neutrophils (%) (Auto) 61.9 % (37.0-80.0) Lymphocytes (%) (Auto) 28.2 % (10.0-50.0) Monocytes (%) (Auto) 7.1 % (0.0-12.0) Eosinophils (%) (Auto) 2.1 % (0.0-7.0) Basophils (%) (Auto) 0.7 % (0.0-2.0) Neutrophils # (Auto) 5.1 10 ^3/uL (1.6-8.6) Lymphocytes # (Auto) 2.3 10 ^3/uL (0.4-5.4) Monocytes # (Auto) 0.6 10 ^3/uL (0-1.3) Eosinophils # (Auto) 0.2 10 ^3/uL (0-0.8) Basophils # (Auto) 0.1 10 ^3/uL (0-0.2) Nucleated Red Blood Cells 0.1 % Sodium Level 142 mmol/L (136-145) Potassium Level 4.1 mmol/L (3.5-5.1) Chloride Level 104 mmol/L (98-107) Carbon Dioxide Level 29 mmol/L (20-31) Anion Gap 9 (5-15) Blood Urea Nitrogen 11 mg/dL (9-23) Creatinine 0.80 mg/dL (0.550-1.02) Glomerular Filtration Rate Calc 93 mL/min (>90) BUN/Creatinine Ratio 13.8 (10.0-20.0) Serum Glucose 101 mg/dL (74-106) Calcium Level 9.4 mg/dL (8.7-10.4) Urine Test Negative (Negative) Total Bilirubin 0.2 mg/dL (0.2-1.0) Aspartate Amino Transferase (AST) 24 U/L (13-40) Alanine Aminotransferase (ALT) 26 U/L (7-40) Alkaline Phosphatase 97 U/L (46-116) Total Protein 7.6 g/dL (5.7-8.2) Albumin 4.9 g/dL (3.2-4.8) Other Laboratory Tests 08/28/25 03:49 Brief Hx & Hospital Course: History of Present Illness 44-year-old female presents for evaluation of GI bleed. Patient reports a three day history of noticing bright red blood in her stool then turning dark then today she started vomiting blood as well. She reports having a colonoscopy three weeks ago. Also reports some abdominal discomfort on the right side of her abdomen. No fever or chills. Course of hospitalization: Patient is repeat CBC remained stable. No signs of active bleeding while in the hospital. Patient underwent EGD today, with patient having no signs of active bleeding. Results discussed with the patient. She has been cleared by Gastroenterology yesterday evening, but patient wanted to stay overnight given her abdominal discomfort. Review of the patient's medications reveals that she is on PPI, Carafate at home. Patient also has persistent nausea at home for which she takes Zofran effervescent tabs. She states that she has a an appointment with her parts counter associate/surgeon who performed her gastric bypass to see if there are any surgical interventions to alleviate her symptoms. Patient is instructed to follow up with her PCP in 1-2 weeks, keep her current appointment with her parts counter associate, as well as continuing all previous home medications. No new prescriptions will be provided given she is already on medications recommended by the parts counter associate performing her EGD. Patient is agreeable with discharge plan. NurseDella was bedside with the discharge instructions. All questions answered. Physical examination General: Alert and Oriented x3. No acute distress. Well-nourished. Obese Eyes: EOMI. Anicteric. HENT: Moist mucous membranes. Lungs: Clear to auscultation bilaterally. No accessory muscle use. Cardiovascular: Regular rate and rhythm. No murmur. No JVD. Abdomen: Soft, non-tender and non-distended. No palpable masses. Extremities: No edema. Non-tender. Skin: No rashes or lesions. Warm. Neurologic: No focal neurological deficits. CN II-XII grossly intact, but not individually tested. Psychiatric: Cooperative. Appropriate mood and affect. Total time spent with patient discussing and formulating plan of care: 35 minutes. This medical document was created using an electronic medical record system with [employer] system. Although this document has been carefully reviewed, there may still be some phonetic and typographical errors. These areas are purely typographical due to imperfections of the software programs, and do not reflect any compromise in the patient's medical care. Consults/Reason for consult Gastroenterology: Rule out GI bleed Condition at Discharge: Fair Final Diagnosis/Problems List GI bleed ruled out -gastritis -obesity -schizophrenia -COPD -diabetes mellitus -hypertension Discharge Disposition: Home Discharge Instruct/Medications Diet: Consistent carbohydrate, Cardiac 2g Na,low cholest Activity: No Restrictions, As Tolerated Follow Up/Referral: Follow up with bariatric surgeon at established appointment Follow up with PCP in 1-2 weeks Medications: Continue all previous home medications. Patient reports that she has Protonix, Prilosec, and Carafate at home Patient also reports that she has Zofran effervescent tabs at home Scheduled Alpha Tocopheryl Acid Succinat (Vitamin E), 100 UNIT PO DAILY, (Reported) Aripiprazole (Abilify), 1 TAB PO DAILY, (Reported) Aripiprazole (Aripiprazole), 1 TAB PO QAM, (Reported) Ascorbic Acid (Vitamin C Tablet), 1 TAB PO DAILY, (Reported) Aspirin (Aspirin), 1 TAB PO DAILY, (Reported) Atogepant (Qulipta), 60 MG PO DAILY, (Reported) Atorvastatin Calcium (Lipitor), 1 TAB PO QAM, (Reported) Atorvastatin Calcium (Atorvastatin Calcium), 1 TAB PO DAILY, (Reported) Baclofen (Baclofen), 1 TAB PO BID, (Reported) Bupropion Hcl (Wellbutrin Sr), 1 TAB PO BID, (Reported) Buspirone Hcl (Buspirone Hcl), 1 TAB PO BID, (Reported) Carbamazepine (Carbamazepine), 1 TAB PO DAILY, (Reported) Cholecalciferol (Vitamin D3 1.25 mg (30939 Ut)), 1 CAP PO QAM, (Reported) Cyanocobalamin (Vitamin B12), 5,000 MCG PO DAILY, (Reported) Fenofibrate (Tricor), 1 TAB PO QAM, (Reported) Fenofibrate (Fenofibrate), 1 TAB PO DAILY, (Reported) Ferrous Sulfate (Ferrous Sulfate), 1 TAB PO DAILY, (Reported) Fluoxetine Hcl (Fluoxetine Hcl), 4 CAP PO QAM, (Reported) Furosemide (Lasix), 1 TAB PO QAM, (Reported) Gabapentin (Neurontin), 2 CAP PO TID, (Reported) Gabapentin (Gabapentin), 1 CAP PO TID Glucose Blood (Freestyle Lite Test Strip), XX TID, (Reported) Hydroxyzine Hcl (Hydroxyzine Hcl), 4 TAB PO TID, (Reported) Ipratropium [place] Hfa (Atrovent Hfa), 1 PUFF INH QID, (Reported) Ivabradine HCl (Ivabradine Hydrochloride), 0.5 TAB PO BID, (Reported) Magnesium Oxide (Magnesium Oxide), 1 TAB PO DAILY, (Reported) Metoprolol Succinate (Metoprolol Succinate Er), 1 TAB PO QAM, (Reported) Montelukast Sodium (Singulair), 1 TAB PO DAILY, (Reported) Multiple Vitamin (Multivitamins), 1 TAB PO DAILY, (Reported) Multiple Vitamin (Multivitamin), 1 TAB PO DAILY, (Reported) Multiple Vitamins W/ Minerals (Hair/Skin/Nails), 2 GUM PO QAM, (Reported) Omeprazole (Omeprazole Dr), 1 CAP PO QAM, (Reported) Ondansetron Odt 4MG Tab (Zofran Po), 8 MG PO QIDP, (Reported) Orlistat (Xenical), 120 MG PO TID, (Reported) Pantoprazole Sodium Sesquihydr (Protonix), 1 TAB PO QPM, (Reported) Patients Own Medication (Patients Own Medication), 1 QID, (Reported) Rimegepant Sulfate (Nurtec), 75 MG PO DAILY, (Reported) Sucralfate (Carafate), 1 GM PO QID, (Reported) Trazodone HCl (Trazodone Hydrochloride), 1 TAB PO HS, (Reported) Scheduled PRN Albuterol Sulfate (Albuterol Sulfate Hfa), 1 PUFF IN QID PRN for SHORTNESS OF BREATH, (Reported) Albuterol Sulfate (Albuterol Sulfate), 1 VIAL NEB QID PRN for SOB or WHEEZING, (Reported) Hydrocodone-Acetaminophen (Hydrocodone Bitartrate/AC 5-325 mg), 1 TAB PO TID PRN for MODERATE PAIN (4-6 PAIN SCALE), (Reported) Meclizine Hcl (Meclizine Hcl), 25 MG PO TIDP PRN for DIZZINESS, (Reported) Ondansetron Odt 4MG Tab (Zofran Po), 4 MG PO q6 PRN Miscellaneous Medications Eszopiclone (Eszopiclone), 1 TAB PO, (Reported) Fluoxetine Hcl (Fluoxetine Hcl), PO, (Reported) Fremanezumab-Vfrm (Ajovy), (Reported) Gabapentin (Gabapentin), PO, (Reported) Insulin Glargine (Basaglar Kwikpen), SC, (Reported) Rizatriptan Benzoate (Rizatriptan Benzoate), PO, (Reported) Sucralfate (Carafate Susp), ML PO, (Reported) Triamcinolone Acetonide (Triamcinolone Acetonide), 1 APPLIC TOP, (Reported) 36 Discharge Statement: "Patient was advised to return to the ER or call 911 if any headaches, dizziness, shortness of breath, chest pain, abdominal pain, bleeding, fevers, or worsening of medical condition. Patient was counseled about treatment plan, medications, possible side effects, patientverbalized understanding. All questions were answered to the best of my ability. This discharge took greater then 30 minutes in planning, reviewing documentation, counseling the patient, and discussing with other team members." ASSESSMENT ASSESSMENT Assessment GI bleed ruled out Date of Service: Aug 29, 2025 Billing Provider: KELVIN BERTRAND MORTGAGE MANAGER Common Visit Codes: [id number]/[id number] DISCH DAY >30min KELVIN BERTRAND NP Aug 29, 2025 10:21
--- NOTE | 2025-08-29 13:47 | DVHPN2 ---
Subjective Discharge plan in progress Patient is still has occasional complains of nausea Reviewed: Care Plan, H&P, Labs, Medications Changes from previous H/P or p: No Changes General: Per HPI Objective Vitals Vital Signs Date Time Temp Pulse Resp B/P (MAP) Pulse Ox O2 Delivery O2 Flow Rate FiO2 08/29/25 12:36 98.0 82 20 109/65 (80) 96 98.0 08/29/25 08:00 Nasal Cannula* 3 32 Intake/Output Intake and Output 08/29/25 07:00 Intake Total 1050 ml Balance 1050 ml Intake Oral 950 ml IV Total 100 ml # Voids 4 Exam General: NAD, AAOX3 Chest: lung ramos clear to auscultation Heart: RRR, no murmur Abdomen: Decreased abdominal tenderness to palpation, +BS General Appearance: Alert, Oriented X3, Cooperative, No acute distress HEENT: Atraumatic, PERRLA Cardiovascular: Normal S1, Normal S2 Abdomen: Normal bowel sounds, Soft, No tenderness, No hepatospenomegaly, No masses Genitourinary: No Apparent Abnormalities Musculoskeletal: Normal sensory function, Normal motor function Skin: Dry, Intact Psych/Mental Status: Mental status NL, Mood NL Laboratory Results Laboratory Tests 08/28/25 03:49 Urinalysis Test 08/27/25 17:59 Urine Test Negative (Negative) Labs and/or images reviewed: Labs reviewed by me, Image(s) reviewed by me Assessment/Plan Assessment/Plan GI bleed ruled out Gastritis Plan Discussed with Dr. Chavo Mendoza and Protonix Outpatient GI follow-up for elective colonoscopy Plan discussed with: Patient, Other (RN) Date of Service: Aug 29, 2025 Billing Provider: KARLENE MARTIN Common Visit Codes: [id number] INP/OBS CARE(MOD) KARLENE MARTIN Aug 29, 2025 13:47
== END 2025-08-29 13:00 | disposition home or self-care (01) | DRG 241 ==
LOC: ER 15:58 → OVERFLOW 22:42 → WEST WING 08-28 16:37
PROVIDERS: ADMIT Nurse Practitioner Acute Care; ATTEND Nurse Practitioner Acute Care
PROC: 0DB88ZX Excision of Small Intestine, Via Natural or Artificial Opening Endoscopic, Diagnostic (ICD-10-PCS; 2025-08-28)
PROC: 0DB68ZX Excision of Stomach, Via Natural or Artificial Opening Endoscopic, Diagnostic (ICD-10-PCS; 2025-08-28)
PROC: 0DB48ZX Excision of Esophagogastric Junction, Via Natural or Artificial Opening Endoscopic, Diagnostic (ICD-10-PCS; principal; 2025-08-28 14:31)
DX: K29.70 Gastritis, unspecified, without bleeding (principal); E11.9 Type 2 diabetes mellitus without complications; K44.9 Diaphragmatic hernia without obstruction or gangrene; I10 Essential (primary) hypertension; N83.9 Noninflammatory disorder of ovary, fallopian tube and broad ligament, unspecified; E66.9 Obesity, unspecified; F20.9 Schizophrenia, unspecified; F41.9 Anxiety disorder, unspecified; J44.89 Other specified chronic obstructive pulmonary disease; Z88.3 Allergy status to other anti-infective agents; Z90.710 Acquired absence of both cervix and uterus; Z98.84 Bariatric surgery status; Z88.2 Allergy status to sulfonamides; Z90.49 Acquired absence of other specified parts of digestive tract; I25.2 Old myocardial infarction; Z79.899 Other long term (current) drug therapy; Z68.35 Body mass index [BMI] 35.0-35.9, adult
CPT/HCPCS: 36415; 74176; 80048; 80053; 81025; 82962; 85014; 85018; 85025; 96374; 96375; G0378; J1815; J2003; J2405; J2470; J2704

== ENCOUNTER 2025-11-19 18:31 | Emergency (ER) | payer MEDICAID ==
[~2025-11-19] VITALS: Ht 165.1 cm; Wt 89.1 kg
[~2025-11-19 18:31] MED LIST changes: +ARIP15TA48 PO; +ATOR10TA52 PO; +BACL20TA PO; +CARB200T4 PO; +ESZO1TAB13 PO; +FENO145T27 PO; +FLUO40CA PO; +FREM225I2; +GABA-339 PO; +GLUC-149 XX; +INSU1INJ19 SC; +IVAB5TAB2 PO; +MULT-1056 PO; +RIZA10TA22 PO; +SUCR1SUS26 PO; +TRIA0.1O TOP
[2025-11-19 19:34] LABS: Hematocrit 38.7 % (36.0-46.0); Hemoglobin 13.0 g/dL (12.2-16.2); Mean Corpuscular Hemoglobin 28.9 pg (28.0-32.0); Mean Corpuscular Volume 85.8 fL (80.0-100.0); Nucleated Red Blood Cells % 0.0 %
[2025-11-19 19:52] LABS: Albumin 4.6 g/dL (3.2-4.8); Anion Gap 8 (5-15); BUN/Creatinine Ratio 19.7 (10.0-20.0); Blood Urea Nitrogen 12 mg/dL (9-23); Calcium 9.5 mg/dL (8.7-10.4); Carbon Dioxide 27 mmol/L (20-31); Chloride 107 mmol/L (98-107); Glucose 81 mg/dL (74-106); Lipase 30 U/L (12-53); Potassium 3.9 mmol/L (3.5-5.1); Sodium 142 mmol/L (136-145); Total Protein 7.1 g/dL (5.7-8.2)
--- NOTE | 2025-11-19 19:56 | DVH ---
EXAM: CT CT AB PEL WO CON-NO ORAL OR IV History: flank pain Comparison Study: CT CT AB PEL WO CON-NO ORAL OR IV on DOS: 08/27/25 TECHNIQUE: Multidetector spiral CT of the abdomen was performed from lung bases to pubic symphysis. Imaging was performed without IV contrast. Axial, coronal and sagittal multiplanar reformats were obtained from the axial data set by the technologist. Radiation Dose : 1. Abdomen/Pelvis: CTDIvol 19.93 mGy, DLP 1048.03 mGy*cm. FINDINGS: Evaluation of solid organs is limited due to lack of intravenous contrast use. Lung Bases: No acute or significant lung base finding. Normal heart size. No pleural or pericardial effusion. Liver: The liver is normal in size. No focal lesions. Gallbladder and Biliary Tree: Gallbladder is surgically absent. Spleen: Unremarkable Pancreas: The pancreas is grossly normal in appearance. Adrenal Glands: Unremarkable Kidneys: Kidneys are grossly normal without calculi or hydronephrosis. Bladder: Grossly unremarkable for degree of distention. Bowel: Gastric bypass. Small bowel and colon are normal in caliber and distribution. The appendix is not visualized; however, no secondary findings of acute appendicitis identified. Ascites: Absent Lymphadenopathy: No mesenteric, retroperitoneal or periportal lymphadenopathy. Abdominal Wall and Mesentery: Unremarkable. Vasculature: The visualized abdominal aorta is normal in size and caliber. Evaluation of abdominal and pelvic vessels is limited due to lack of intravenous contrast. Pelvic Organs: Stable right ovarian cyst measuring 6.0 cm. Musculoskeletal: No aggressive focal bony lesions, acute fractures or dislocation. IMPRESSION: No acute abdominal or pelvic findings. Radiation optimization: All CT scans at this facility use at least one of these dose optimization techniques: automated exposure control mA and/or kV adjustment per patient size (includes targeted exams where dose is matched to clinical indication) or iterative reconstruction.
[2025-11-19 19:59] LABS: Alanine Aminotransferase 99 U/L (7-40); Alkaline Phosphatase 121 U/L (46-116); Bilirubin, Total 0.2 mg/dL (0.2-1.0)
--- NOTE | 2025-11-19 20:16 | ED.PDOC ---
History of Present Illness HPI Comments 45 y/o obese F presents with daughter for c/c of lumbar back pain. Patient endorses on having pain since 11/13/25. Pain is worse on the right than the left side. Associated fever and urine retention. Patient was evaluated for symptoms and placed on Keflex antibiotic regimen on 11/16/25. Since Keflex placement, no reported relief or improvement. Denial of any nausea, vomiting, or further acute symptoms. Chief Complaint: Back Pain Time Seen by MD: 18:40 Primary Care Provider: UNKNOWN Reviewed Notes: Nurses Notes, Medications, Allergies Allergies: Coded Allergies: Sulfamethoxazole w/Trimethoprim (Verified Allergy, Intermediate, N/V, ITCHING, FEEL HOT, 02/16/23) Sulfa Antibiotics (Verified Allergy, Unknown, HIVES, 08/18/24) Home Meds Active Scripts Cefdinir (Cefdinir) 300 Mg Cap, 1 CAP PO BID for 10 Days, #20 CAP Prov:BRANDON NAVARRO MD 11/19/25 Gabapentin (Once-Daily) (Gabapentin) 300 Mg Tab, 300 MG PO Q6HP PRN, #60 TAB Prov:BRANDON NAVARRO MD 11/19/25 Sulfamethoxazole W/Trimethopri (Bactrim Ds Tablet) 1 Tab Tb, 1 TAB PO BID for 7 Days, #14 TAB Prov:BRANDON NAVARRO MD 11/19/25 Gabapentin (Gabapentin) 300 Mg Cap, 1 CAP PO TID, #90 CAP 5 Refills Prov:AARON NUNES MD 05/24/25 Ondansetron Odt 4MG Tab (ZOFRAN PO) 4 Mg Tb, 4 MG PO q6 PRN for 2 Days, #8 TAB ODT TAB-DISSOLVE IN MOUTH, THEN SWALLOW Prov:AARON NUNES MD 05/24/25 Reported Medications Fremanezumab-Vfrm (Ajovy) 225 Mg/1.5 Ml Inj 08/28/25 Carbamazepine (Carbamazepine) 200 Mg Tab, 1 TAB PO DAILY 08/28/25 Eszopiclone (Eszopiclone) 1 Mg Tab, 1 TAB PO 08/28/25 Atorvastatin Calcium (ATORVASTATIN CALCIUM) 10 Mg Tab, 1 TAB PO DAILY 08/28/25 Multiple Vitamin (Multivitamin) 1 Tab Tab, 1 TAB PO DAILY 08/28/25 Aripiprazole (Aripiprazole) 15 Mg Tab, 1 TAB PO QAM 08/28/25 Sucralfate (CARAFATE SUSP) 1 Gm/10 Ml Ss, ML PO 08/28/25 Rizatriptan Benzoate (RIZATRIPTAN BENZOATE) 10 Mg Tab, PO 08/28/25 Glucose Blood (Freestyle Lite Test Strip) Lite Mikaela, XX TID 08/28/25 Triamcinolone Acetonide (Triamcinolone Acetonide) 0.1 % Oin, 1 APPLIC TOP 08/28/25 Ivabradine HCl (Ivabradine Hydrochloride) 5 Mg Tab, 0.5 TAB PO BID 08/28/25 Gabapentin (Gabapentin) 600 Mg Tab, PO 08/28/25 Fenofibrate (FENOFIBRATE) 145 Mg Tab, 1 TAB PO DAILY 08/28/25 Insulin Glargine (Basaglar Kwikpen) 100 Unit/Ml Inj, SC 08/28/25 Baclofen (Baclofen) 20 Mg Tab, 1 TAB PO BID 08/28/25 Fluoxetine Hcl (Fluoxetine Hcl) 40 Mg Cap, PO 08/28/25 Atorvastatin Calcium (Lipitor) 10 Mg Tab, 1 TAB PO QAM, #90 TAB 1 Refill 08/18/24 Ipratropium [place] Hfa (Atrovent Hfa) 17 Mcg Aer, 1 PUFF INH QID for COPD, #12.9 GRAMS 5 Refills 08/18/24 Patients Own Medication (PATIENTS OWN MEDICATION) ., 1 QID for IPTROPIUM SOLUTION PTS OWN MED-OBTAIN FROM PT AND SEND TO RX DRUG: FREQ: RX# EXP: DATE DISP: TECH: RPH: 08/18/24 Cyanocobalamin (Vitamin B12) 1,000 Mcg Tab, 5000 MCG PO DAILY, TAB 08/18/24 Alpha Tocopheryl Acid Succinat (VITAMIN E) 100 Unit Tab, 100 UNIT PO DAILY, TAB 08/18/24 Ascorbic Acid (VITAMIN C TABLET) 500 Mg Tb, 1 TAB PO DAILY, #30 TAB 3 Refills 08/18/24 Magnesium Oxide (MAGNESIUM OXIDE) 400 Mg Tab, 1 TAB PO DAILY, #30 TAB 5 Refills 08/18/24 Atogepant (Qulipta) 60 Mg Tab, 60 MG PO DAILY for MIGRAINE HEADACHES, TAB 08/18/24 Meclizine Hcl (Meclizine Hcl) 25 Mg Tab, 25 MG PO TIDP PRN for DIZZINESS for 30 Days, MG 08/18/24 Furosemide (Lasix) 20 Mg Tb, 1 TAB PO QAM for EDEMA, #90 TAB 1 Refill 08/18/24 Ondansetron Odt 4MG Tab (ZOFRAN PO) 4 Mg Tb, 8 MG PO QIDP for NAUSEA/VOMITING, TAB ODT TAB-DISSOLVE IN MOUTH, THEN SWALLOW 08/18/24 Multiple Vitamin (Multivitamins) Tab, 1 TAB PO DAILY, #90 TAB 3 Refills 08/18/24 Multiple Vitamins W/ Minerals (Hair/Skin/Nails) 1 Cap Cap, 2 GUM PO QAM for SUPPLEMENT, CAP 08/18/24 Sucralfate (CARAFATE) 1 Gm Tab, 1 GM PO QID for GERD, TAB 08/18/24 Orlistat (Xenical) 120 Mg Cap, 120 MG PO TID for WEIGHT LOSS, CAP 08/18/24 Rimegepant Sulfate (Nurtec) 75 Mg Tab, 75 MG PO DAILY for HEADACHE, TAB 08/18/24 Albuterol Sulfate (Albuterol Sulfate) 0.083 % Neb, 1 VIAL NEB QID PRN for SOB or WHEEZING 02/16/23 Albuterol Sulfate (Albuterol Sulfate Hfa) 108 Mcg/Act Aer, 1 PUFF IN QID PRN for SHORTNESS OF BREATH 02/16/23 Gabapentin (Neurontin) 300 Mg Cap, 2 CAP PO TID for FIBROMYALGIA 02/16/23 Aspirin (Aspirin) 81 Mg Tab, 1 TAB PO DAILY for HEART ATTACK PREVENTION 02/16/23 Ferrous Sulfate (Ferrous Sulfate) 325 Mg Tab, 1 TAB PO DAILY for ANEMIA 02/16/23 Omeprazole (Omeprazole Dr) 40 Mg Cap, 1 CAP PO QAM for GERD 02/16/23 Montelukast Sodium (Singulair) 10 Mg Tab, 1 TAB PO DAILY for ASTHMA 02/16/23 Buspirone Hcl (Buspirone Hcl) 30 Mg Tab, 1 TAB PO BID for DEPRESSION 02/16/23 Hydroxyzine Hcl (Hydroxyzine Hcl) 50 Mg Tab, 4 TAB PO TID for ANXIETY 02/16/23 Pantoprazole Sodium Sesquihydr (Protonix) 40 Mg Tab, 1 TAB PO QPM for GERD 02/16/23 Aripiprazole (Abilify) 15 Mg Tab, 1 TAB PO DAILY for OCD 02/16/23 Bupropion Hcl (Wellbutrin Sr) 200 Mg Tab, 1 TAB PO BID for BIPOLAR DISORDER 02/16/23 Trazodone HCl (Trazodone Hydrochloride) 300 Mg Tab, 1 TAB PO HS for INSOMNIA 02/16/23 Fenofibrate (Tricor) 145 Mg Tab, 1 TAB PO QAM for HYPERLIPIDEMIA 02/16/23 Hydrocodone-Acetaminophen (Hydrocodone Bitartrate/AC 5-325 mg) 1 Tab Tab, 1 TAB PO TID PRN for MODERATE PAIN (4-6 PAIN SCALE) 02/16/23 Fluoxetine Hcl (Fluoxetine Hcl) 20 Mg Cap, 4 CAP PO QAM for BPD 02/16/23 Cholecalciferol (Vitamin D3 1.25 mg (03838 Ut)) 1 Cap Cap, 1 CAP PO QAM for VIT D DEFICIENCY 02/16/23 Metoprolol Succinate (Metoprolol Succinate Er) 25 Mg Tab, 1 TAB PO QAM for HYPERTENSION 02/16/23 Information Source: Patient Mode of Arrival: Ambulatory Severity: Moderate Timing: Hours Duration: Since onset Prehospital treatment: None Past Medical History PAST MEDICAL HISTORY: Anxiety, Asthma, COPD, DM, High Lipids, HTN, OK Surgical History: Cholecystectomy, Hysterectomy [employer]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[employer] OFFICER History: Denies all [employer] OFFICER Hx, No Pertinent [employer] OFFICER History Family History Family History: Reviewed,noncontributory to illness, Unknown Social History Smoker: Non-Smoker Alcohol: Denies ETOH Use Drugs: Marijuana Lives In: Home All Other Systems: Reviewed and Negative (As per HPI) Physical Exam General Appearance: No Apparent Distress, Obese HEENT: Normal ENT Inspection, Pharynx Normal, TMs Normal Neck: Full Range of Motion, Non-Tender, Normal, Normal Inspection Respiratory: Chest Non-Tender, Lungs Clear, No Accessory Muscle Use, No Respiratory Distress, Normal Breath Sounds Cardiovascular: No Edema, No JVD, No Murmur, No Gallop, Normal Peripheral Pulses, Regular Rate/Rhythm Breast Exam: Deferred Gastrointestinal: No Organomegaly, No Pulsatile Mass, Normal Bowel Sounds, Soft, Tenderness (mild, right CVA tenderness ) Genitalia: Deferred Pelvic: Deferred Rectal: Deferred Extremities: No calf tenderness, Normal capillary refill, Normal inspection, Normal range of motion, Non-tender, No pedal edema Musculoskeletal : Apperance: Normal Neurologic: Alert, 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 Was a procedure done?: No Differential Dx Considerations may include: UTI, ureteral stone, ureteral obstruction, nephrolithiasis, among others X-Ray, Labs, Meds, VS Vital Signs Date Time Temp Pulse Resp B/P (MAP) Pulse Ox O2 Delivery O2 Flow Rate FiO2 11/19/25 22:55 Nasal Cannula* 2 28 11/19/25 22:50 97.8 92 18 125/88 (100) 98 97.8 11/19/25 20:22 97.8 89 18 117/90 (99) 96 97.8 11/19/25 18:35 97.9 97 15 123/71 97 97.9 Lab Test 11/19/25 19:20 11/19/25 18:50 Range/Units Urine Color Light-yellow Yellow Urine Clarity Turbid H Clear Urine pH 6.0 5.0-9.0 Urine Specific [place] 1.021 1.001-1.035 Urine Protein Negative Negative Urine Ketones Negative Negative Urine Blood Negative Negative /uL Urine Nitrite Negative Negative Urine Bilirubin Negative Negative Urine Urobilinogen Normal Negative mg/dL Urine Leukocyte Esterase Negative Negative /uL Urine RBC 5 0 - 4 /hpf Urine Microscopic WBC 2 0-5 /HPF Urine Squamous Epithelial Cells Few <5 /hpf Urine Calcium Oxalate Crystals Many None Seen Urine Bacteria None seen None Seen /hpf Urine Glucose Normal Normal mg/dL White Blood Count 5.3 4.4-10.8 10^3/uL Red Blood Count 4.51 4.0-5.20 10^6/uL Hemoglobin 13.0 12.2-16.2 g/dL Hematocrit 38.7 36.0-46.0 % Mean Corpuscular Volume 85.8 80.0-100.0 fL Mean Corpuscular Hemoglobin 28.9 28.0-32.0 pg Mean Corpuscular Hemoglobin Concent 33.7 32.0-36.0 g/dL Red Cell Distribution Width 13.6 11.8-14.3 % Platelet Count 175 140-450 10^3/uL Mean Platelet Volume 8.0 6.9-10.8 fL Neutrophils (%) (Auto) 46.5 37.0-80.0 % Lymphocytes (%) (Auto) 43.0 10.0-50.0 % Monocytes (%) (Auto) 5.6 0.0-12.0 % Eosinophils (%) (Auto) 3.4 0.0-7.0 % Basophils (%) (Auto) 1.5 0.0-2.0 % Neutrophils # (Auto) 2.5 1.6-8.6 10 ^3/uL Lymphocytes # (Auto) 2.3 0.4-5.4 10 ^3/uL Monocytes # (Auto) 0.3 0-1.3 10 ^3/uL Eosinophils # (Auto) 0.2 0-0.8 10 ^3/uL Basophils # (Auto) 0.1 0-0.2 10 ^3/uL Nucleated Red Blood Cells 0.0 % Sodium Level 142 136-145 mmol/L Potassium Level 3.9 3.5-5.1 mmol/L Chloride Level 107 98-107 mmol/L Carbon Dioxide Level 27 20-31 mmol/L Anion Gap 8 5-15 Blood Urea Nitrogen 12 9-23 mg/dL Creatinine 0.61 0.550-1.02 mg/dL Glomerular Filtration Rate Calc 112 >90 mL/min BUN/Creatinine Ratio 19.7 10.0-20.0 Serum Glucose 81 74-106 mg/dL Lactic Acid Level 1.4 0.4-2.0 mmol/L Calcium Level 9.5 8.7-10.4 mg/dL Total Bilirubin 0.2 0.2-1.0 mg/dL Aspartate Amino Transferase (AST) 35 13-40 U/L Alanine Aminotransferase (ALT) 99 H 7-40 U/L Alkaline Phosphatase 121 H 46-116 U/L Total Protein 7.1 5.7-8.2 g/dL Albumin 4.6 3.2-4.8 g/dL Lipase 30 12-53 U/L Current Medications Medications (Trade) Dose Ordered Sig/Arleen Route Start Time Stop Time Status Last Admin Sodium Chloride 1,000 ml @ 1,000 mls/hr Q1H ONCE IVB 11/19/25 18:45 11/19/25 19:44 DC 11/19/25 22:25 Ondansetron HCl (Zofran) 4 mg ONCE ONCE IV 11/19/25 22:45 11/19/25 22:46 DC 11/19/25 22:45 Acetaminophen/ Hydrocodone Bitart (Madeline 10/325MG Tab) 1 tab ONCE ONCE PO 11/19/25 22:45 11/19/25 22:46 DC 11/19/25 22:[address] [address] Ph: [phone] DIAGNOSTIC IMAGING Diagnostic Imaging Report : [id number] Signed PATIENT: YEIMY ANAYA ACCT: [id number] UNIT: [id number] : 1980 LOC: ER ROOM / BED: / AGE / SEX: 45 / F ADM STATUS: REG ER SERVICE 41 ORDERING PHYSICIAN: BRANDON NAVARRO MD PROCEDURE(s): ABPL - CT AB PEL WO CON-NO ORAL OR IV REASON: flank pain ORDER NUMBER(s): [id number], ACCESSION NUMBER(s): [id number] EXAM: CT CT AB PEL WO CON-NO ORAL OR IV History: flank pain Comparison Study: CT CT AB PEL WO CON-NO ORAL OR IV on DOS: 08/27/25 TECHNIQUE: Multidetector spiral CT of the abdomen was performed from lung bases to pubic symphysis. Imaging was performed without IV contrast. Axial, coronal and sagittal multiplanar reformats were obtained from the axial data set by the technologist. Radiation Dose : 1. Abdomen/Pelvis: CTDIvol 19.93 mGy, DLP 1048.03 mGy*cm. FINDINGS: Evaluation of solid organs is limited due to lack of intravenous contrast use. Lung Bases: No acute or significant lung base finding. Normal heart size. No pleural or pericardial effusion. Liver: The liver is normal in size. No focal lesions. Gallbladder and Biliary Tree: Gallbladder is surgically absent. Spleen: Unremarkable Pancreas: The pancreas is grossly normal in appearance. Adrenal Glands: Unremarkable Kidneys: Kidneys are grossly normal without calculi or hydronephrosis. Bladder: Grossly unremarkable for degree of distention. Bowel: Gastric bypass. Small bowel and colon are normal in caliber and distribution. The appendix is not visualized; however, no secondary findings of acute appendicitis identified. Ascites: Absent Lymphadenopathy: No mesenteric, retroperitoneal or periportal lymphadenopathy. Abdominal Wall and Mesentery: Unremarkable. Vasculature: The visualized abdominal aorta is normal in size and caliber. Evaluation of abdominal and pelvic vessels is limited due to lack of intravenous contrast. Pelvic Organs: Stable right ovarian cyst measuring 6.0 cm. Musculoskeletal: No aggressive focal bony lesions, acute fractures or dislocation. IMPRESSION: No acute abdominal or pelvic findings. Radiation optimization: All CT scans at this facility use at least one of these dose optimization techniques: automated exposure control mA and/or kV adjustment per patient size (includes targeted exams where dose is matched to clinical indication) or iterative reconstruction. ATED BY: VIANEY MATHIS MD DICTATED DATE/TIME: 11/19/251952 SIGNED BY: VIANEY MATHIS MD SIGNED DATE/TIME: 11/19/251952 CC: Time of 1ST Reevaluation: 19:20 Reevaluation 1ST: Unchanged Patient Education/Counseling: Diagnosis, Treatment Family Education/Counseling: No Family Present SEPSIS Sepsis Screen Date sepsis recognized/suspect: Nov 19, 2025 Time Sepsis recognized/suspect: 1835 Recent Procedure: No (T) On Antibiotic Therapy: No Respiratory Rate >20: No Heart Rate >90: No Temp<36 C (96.8 F) or >38.3 C: No SBP <90 or MAP <65 mmHG: No New Acute Mental Status Change: No Is the patient on CPAP, BIPAP,: No Physician Orders Ct Ab Pel Wo Con-No Oral Or Iv (11/19/25 18:42) Blood Culture (11/19/25 18:42) Vital Signs Date Time Temp Pulse Resp B/P (MAP) Pulse Ox O2 Delivery O2 Flow Rate FiO2 11/19/25 22:55 Nasal Cannula* 2 28 11/19/25 22:50 97.8 92 18 125/88 (100) 98 97.8 11/19/25 20:22 97.8 89 18 117/90 (99) 96 97.8 11/19/25 18:35 97.9 97 15 123/71 97 97.9 Laboratory Tests Test 11/19/25 18:50 Lactic Acid Level 1.4 mmol/L (0.4-2.0) White Blood Count 5.3 10^3/uL (4.4-10.8) Medications Medications Dose Ordered Sig/Arleen Route Start Time Stop Time Status Last Admin Dose Admin Acetaminophen/ Hydrocodone Bitart 1 tab ONCE ONCE PO 11/19/25 22:45 11/19/25 22:46 DC 11/19/25 22:45 Ondansetron HCl 4 mg ONCE ONCE IV 11/19/25 22:45 11/19/25 22:46 DC 11/19/25 22:45 Sodium Chloride 1,000 ml @ 1,000 mls/hr Q1H ONCE IVB 11/19/25 18:45 11/19/25 19:44 DC 11/19/25 22:25 Departure 1 Departure Time of Disposition: 21:00 Impression: Primary Impression: Right flank pain Additional Impression: Right sided abdominal pain Disposition: HOME / SELF CARE / HOMELESS Condition: Stable e-Prescriptions Cefdinir (Cefdinir) 300 Mg Cap 1 CAP PO BID for 10 Days, #20 CAP Prov: BRANDON NAVARRO MD 11/19/25 Gabapentin (Once-Daily) (Gabapentin) 300 Mg Tab 300 MG PO Q6HP PRN, #60 TAB Prov: BRANDON NAVARRO MD 11/19/25 Sulfamethoxazole W/Trimethopri (Bactrim Ds Tablet) 1 Tab Tb 1 TAB PO BID for 7 Days, #14 TAB Prov: BRANDON NAVARRO MD 11/19/25 Discharged With: Self Critical Care Note Critical Care Time?: No Stability Stability form required: No Heart Score Heart Score: Heart Score Response (Comments) Value History N/A 0 EKG N/A 0 Age N/A 0 Risk Factors N/A 0 Troponin N/A 0 Total 0 I personally scribed for BRANDON NAVARRO MD ([email or web address]) on 11/19/25 at 20:15. Electronically submitted by Cecilio Mi ([email or web address]). BRANDON NAVARRO MD Nov 19, 2025 20:15
[2025-11-19 21:07] LABS: Urine Protein, UAD Negative (Negative)
[2025-11-19] MEDS ORDERED: BACDST PO (21:57)
[2025-11-19] MEDS ORDERED: GABA300T4 PO (21:57)
[2025-11-19] MEDS: SODIUM CHLORIDE 0.9% 1,000 ML IVB ONE (22:25)
[2025-11-19] MEDS: SULFAMETHOX W/TRIMETH(800/160MG) DS TAB PO ONE (22:26)
[2025-11-19] MEDS ORDERED: CEFD300C2 PO (22:32)
[2025-11-19] MEDS: CEPHALEXIN 250 MG CAP PO ONE (22:39)
[2025-11-19] MEDS: ONDANSETRON HCL 4 MG/2 ML VIAL IV ONE (22:45)
[2025-11-19] MEDS: HYDROcodone-ACET 10/325MG TAB PO ONE (22:45)
[2025-11-19 22:50] VITALS: BP 125/88; PULSE 92; RESP 18; TEMP 97.8; O2SAT 98
== END 2025-11-19 22:57 | disposition home or self-care (01) ==
LOC: ER 18:31
DX: R10.A1 Flank pain, right side (principal); R10.9 Unspecified abdominal pain; M54.50 Low back pain, unspecified; F12.90 Cannabis use, unspecified, uncomplicated; F41.9 Anxiety disorder, unspecified; I10 Essential (primary) hypertension; J44.89 Other specified chronic obstructive pulmonary disease; E11.9 Type 2 diabetes mellitus without complications; E66.9 Obesity, unspecified; Z79.899 Other long term (current) drug therapy; Z90.710 Acquired absence of both cervix and uterus; Z90.49 Acquired absence of other specified parts of digestive tract; Z88.1 Allergy status to other antibiotic agents; Z88.2 Allergy status to sulfonamides; Z68.32 Body mass index [BMI] 32.0-32.9, adult
CPT/HCPCS: 36415; 74176; 80053; 81001; 83605; 83690; 85025; 87040; 87077; 87186; 96361; 96374; 99285; J2405; J7030